=== PATIENT | female | born 1965 | race Caucasian/White ===

== ENCOUNTER 2017-01-20 13:05 | Inpatient (IN) | payer MEDICAID ==
--- NOTE | 2017-01-20 14:30 | C.PDOC ---
History Of Present Illness 51 year old patient, with a past medical history of arthritis, depression and HIV, presents to the ED for left lower quadrant pain and diarrhea for the past week. Patient also complains of a tactile fever, cough with yellow sputum, and pleuritic chest pain x 2 weeks. Patient had 200 CD4 and high viral load. Patient denies nausea or vomiting. Patient was seen at [facility] on 01/05/17 and discharged. Pt was seen by Dr. Axel perez and sent here for evaluation for abdominal pain. Time Seen by Provider: 01/20/17 13:40 Chief Complaint (Nursing): Abdominal Pain History Per: Patient History/Exam Limitations: no limitations Onset/Duration Of Symptoms: Other (2 weeks) Current Symptoms Are (Timing): Still Present Context: Other Severity: Mild Pain Scale Rating Of: 3 Location Of Pain/Discomfort: LLQ Radiation Of Pain To:: None Quality Of Discomfort: "Pain" Associated Symptoms: Fever, Other (cough) Exacerbating Factors: None Alleviating Factors: None Last Bowel Movement: Today Recent travel outside of the [place]: No Past Medical History Reviewed: Historical Data, Nursing Documentation, Vital Signs Vital Signs: Last Vital Signs Temp 101.3 F H 01/20/17 17:08 Pulse 94 H 01/20/17 17:08 Resp 20 01/20/17 17:08 BP 105/61 01/20/17 17:08 Pulse Ox 100 01/20/17 18:36 - Medical History PMH: Arthritis, Depression, HIV Surgical History: Cholecystectomy Family History: States: Unknown Family Hx, Hypertension - Social History Hx Alcohol Use: No Hx Substance Use: No - Immunization History Hx Tetanus Toxoid Vaccination: No Hx Influenza Vaccination: No Hx Pneumococcal Vaccination: Yes Review Of Systems Except As Marked, All Systems Reviewed And Found Negative. Constitutional: Positive for: Fever (tactile) Cardiovascular: Positive for: Chest Pain (pleuritic) Respiratory: Positive for: Cough Gastrointestinal: Positive for: Abdominal Pain (LLQ). Negative for: Nausea, Vomiting Physical Exam - Physical Exam Appears: Non-toxic, No Acute Distress, Other (uncomfortable) Skin: Warm, Dry Head: Atraumatic, Normacephalic Eye(s): bilateral: Normal Inspection, EOMI Oral Mucosa: Dry Neck: Normal ROM, Supple Chest: Symmetrical Cardiovascular: Rhythm Regular (tachycardic) Respiratory: No Rales, No Rhonchi, No Wheezing, Other (course breath sounds bilaterally) Gastrointestinal/Abdominal: Bowel Sounds (positive), Soft, Tenderness (LLQ), No Guarding, No Rebound Back: Normal Inspection, No CVA Tenderness Extremity: Normal ROM Neurological/Psych: Oriented x3, Normal Speech, Normal Cognition Gait: Steady ED Course And Treatment - Laboratory Results Result Diagrams: 01/20/17 14:38 01/20/17 14:38 O2 Sat by Pulse Oximetry: 100 (room air) Pulse Ox Interpretation: Normal Progress Note: Plan: Abdomen/Pelvis CT, Labs, Chest x-ray, IV fluids Medical Decision Making Medical Decision Making: chest xray shows pneumonia; ceftriaxone and zithromax ordered. discussed with Dr Mallorie Reyna; will admit to his service; await abdominal ct results. Disposition Discussed With : Ekta Reyna Doctor Will See Patient In The: Hospital - Disposition Disposition: HOSPITALIZED Disposition Time: 18:35 Condition: STABLE - Clinical Impression Clinical Impression: Pneumonia, Immunocompromised state - PA / SOCIOCULTURAL ANTHROPOLOGY PROFESSOR / Resident Statement MD/DO has reviewed & agrees with the documentation as recorded. - Scribe Statement The provider has reviewed the documentation as recorded by the Scribe Ani Isbell All medical record entries made by the Scribe were at my direction and personally dictated by me. I have reviewed the chart and agree that the record accurately reflects my personal performance of the history, physical exam, medical decision making, and the department course for this patient. I have also personally directed, reviewed, and agree with the discharge instructions and disposition. Decision To Admit - Pt Status Changed To: Hospital Disposition Of: Inpatient - Admit Certification Admit to Inpatient:: After my assessment, the patient will require hospitalization for at least two midnights. This is because of the severity of symptoms shown, intensity of services needed, and/or the medical risk in this patient being treated as an outpatient. - InPatient: Physician Admission Certification:: for tx pneumonia - . Bed Request Type: Regular Patient Diagnosis: Pneumonia, Immunocompromised state
[2017-01-20] MEDS ORDERED: Sodium Chloride 0.9% 1,000 ML IV ONE (14:33)
[2017-01-20 14:47] LABS: BASO % 0.2 % (0.0-2.0); EOS # 0.1 K/uL (0.0-0.7); EOS % 1.7 % (0.0-4.0); HEMATOCRIT 28.8 % (34.0-47.0); LYMPH # 1.6 K/uL (1.0-4.3); LYMPH % 22.9 % (20.0-40.0); MEAN CELL VOLUME 80.1 fL (81.0-99.0); MEAN CORPUSCULAR HGB CONC 32.5 g/dL (33.0-37.0); MEAN PLATELET VOLUME 9.1 fL (7.2-11.7); MONO # 0.4 K/uL (0.0-0.8); MONO % 5.1 % (0.0-10.0); RED CELL DISTRIBUTION WIDTH 15.1 % (11.5-14.5)
[2017-01-20] MEDS ORDERED: Sodium Chloride 0.9% 1,000 ML ONE (14:54)
[2017-01-20] MEDS ORDERED: Iohexol 240 (50 ml) ONE (14:54)
--- NOTE | 2017-01-20 14:55 | RAD ---
HISTORY: cough x 2 weeks COMPARISON: Chest x-ray performed 09/25/16 TECHNIQUE: Chest PA and lateral FINDINGS: LUNGS: Patchy right lower lobe opacities and to a lesser extent inferior right upper lobe, likely pneumonia. Nonspecific lingular opacity. Please note that chest x-ray has limited sensitivity for the detection of pulmonary masses. PLEURA: No significant pleural effusion identified. No definite pneumothorax . CARDIOVASCULAR: The cardiomediastinal silhouette appears within normal limits of size. OSSEOUS STRUCTURES: No acute osseous abnormality identified. VISUALIZED UPPER ABDOMEN: Unremarkable. OTHER FINDINGS: None. IMPRESSION: Patchy right lower lobe opacities and to a lesser extent inferior right upper lobe, likely pneumonia. Nonspecific lingular opacity. Recommend follow-up to assess for complete resolution.
[2017-01-20 14:56] LABS: CHLORIDE 99 mmol/L (98-107)
[2017-01-20 14:57] LABS: SODIUM 135 mmol/L (132-148)
[2017-01-20 14:59] LABS: ALB/GLOB RATIO 1.1 (1.0-2.1); ALKALINE PHOSPHATASE 325 U/L (38-126); ALT/SGPT 50 U/L (9-52); AST/SGOT 47 U/L (14-36); BILIRUBIN,TOTAL 0.7 mg/dL (0.2-1.3); CALCIUM 8.2 mg/dl (8.6-10.4); CARBON DIOXIDE 25 mmol/L (22-30); GFR AFRICAN-AMERICAN > 60; GLUCOSE,RANDOM 91 mg/dL (65-105); TOTAL PROTEIN 7.5 g/dL (6.3-8.3)
[2017-01-20 15:01] LABS: RBC URINE < 1 /hpf (0-3); URINE BACTERIA MANY (<OCC); URINE BILIRUBIN NEGATIVE (NEGATIVE); URINE BLOOD NEGATIVE (NEGATIVE); URINE COLOR Yellow (YELLOW); URINE GLUCOSE (UA) NORMAL (Normal); URINE KETONE NEGATIVE (NEGATIVE); URINE LEUKOCYTE ESTERASE TRACE Leu/uL (Negative); URINE PROTEIN NEGATIVE (NEGATIVE); URINE UROBILINOGEN NORMAL mg/dL (0.2-1.0); WBC URINE 1 /hpf (0-5)
[2017-01-20] MEDS ORDERED: Iohexol 240 (50 ml) PO STA (15:05)
[2017-01-20 15:22] LABS: BLOOD UREA NITROGEN 12 mg/dL (7-17)
[2017-01-20] MEDS ORDERED: Azithromycin 500 MG in Sodium Chloride 0.9% 250 ML IVPB STA (16:15)
[2017-01-20] MEDS ORDERED: cefTRIAXone IV 1 gm in Dextros 50 ML IVPB ONE (16:28)
[2017-01-20] MEDS ORDERED: Iodixanol 320 MG/ML 100 ML BOTTLE IV ONE (16:34)
[2017-01-20] MEDS ORDERED: Azithromycin 500mg/250ML NS 500 MG/250 ML BAG IVPB ONE (17:44)
--- NOTE | 2017-01-20 18:21 | CT ---
PROCEDURE: CT Abdomen and Pelvis with oral and IV contrast. HISTORY: llq pain and diarrhea COMPARISON: None available TECHNIQUE: Contiguous axial images of the abdomen and pelvis. Oral and IV contrast was administered. Coronal and Sagittal reformats generated and reviewed. Contrast dose: 100 cc Visipaque 320 Radiation dose: Total exam DLP = 242.14 mGy-cm. This CT exam was performed using one or more of the following dose reduction techniques: Automated exposure control, adjustment of the mA and/or kV according to patient size, and/or use of iterative reconstruction technique. FINDINGS: LOWER THORAX: Multiple nodular bilateral opacities at the lung bases, possibly multifocal pneumonia, however underlying pulmonary masses cannot be excluded. LIVER: Hepatomegaly. Intrahepatic biliary dilatation predominantly within the right hepatic lobe. Coarse calcifications within the inferior posterior right hepatic lobe. GALLBLADDER AND BILE DUCTS: Cholecystectomy. PANCREAS: Unremarkable. SPLEEN: Splenomegaly. ADRENALS: Unremarkable. KIDNEYS AND URETERS: The kidneys enhance symmetrically. No hydronephrosis or obstructing renal calculus. BLADDER: The urinary bladder appears unremarkable. REPRODUCTIVE: Uterus is present. Suspected fundal fibroid. APPENDIX: The appendix appears within normal limits of caliber. No secondary signs of acute appendicitis. BOWEL: The stomach is nondistended. The bowel loops appear within normal limits of caliber without evidence of intestinal obstruction. PERITONEUM: No significant free fluid. No definite free air. LYMPH NODES: Prominent sub cm right lower quadrant/mesenteric lymph nodes, nonspecific. VASCULATURE: No aortic aneurysm. BONES: Degenerative changes of the spine. OTHER FINDINGS: Small fat containing umbilical hernia. IMPRESSION: Multiple nodular bilateral opacities at the lung bases, possibly multifocal pneumonia, however underlying pulmonary masses cannot be excluded. Correlate clinically. Suggest CT of the chest for further evaluation. Hepatomegaly. Intrahepatic biliary dilatation predominantly within the right hepatic lobe. Coarse calcifications within the inferior posterior right hepatic lobe. Splenomegaly. Cholecystectomy. Probable fundal uterine fibroid. Recommend pelvic ultrasound for further evaluation. Additional findings as above.
--- NOTE | 2017-01-20 23:26 | CT ---
EXAM: CT Chest Without Intravenous Contrast CLINICAL HISTORY: 51 years old, female; Pain; Chest pain; Patient HX: 6-9-16; Additional info: Pneumonia TECHNIQUE: Axial computed tomography images of the chest without intravenous contrast. This CT exam was performed using one or more of the following dose reduction techniques: automated exposure control, adjustment of the mA and/or kV according to patient size, and/or use of iterative reconstruction technique. Coronal and sagittal reformatted images were created and reviewed. COMPARISON: CR - CHEST TWO VIEWS (PA/LAT) 11/07/2015 6:16:11 PM FINDINGS: Limitations: Lack of intravenous contrast. Lungs: Multiple scattered nodular air space opacities with surrounding groundglass/reticulonodular opacities. Pleural space: No pneumothorax. No significant effusion. Heart: No cardiomegaly. No significant pericardial effusion. Mediastinum: Mild mural thickening vs underdistention of distal esophagus. Probable small hiatal hernia. Bones/joints: No acute fracture. Soft tissues: Unremarkable. Vasculature: Unremarkable. No thoracic aortic aneurysm. Lymph nodes: No pathologically enlarged lymph nodes. Gallbladder and bile ducts: Cholecystectomy. Spleen: Splenomegaly. Kidneys and ureters: Residual contrast within kidneys. Striated appearance of kidneys, RIGHT greater than LEFT. IMPRESSION: 1. Nodular airspace opacities. Consider inflammatory, infectious, or neoplastic etiologies. Clinical correlation is needed. 2. Striated kidneys concerning for pyelonephritis. Correlate with urinalysis. 3. Mild mural thickening vs underdistention of distal esophagus. Clinical correlation is needed. 4. Incidental/non-acute findings are described above.
--- NOTE | 2017-01-21 04:08 | HP ---
HISTORY OF PRESENT ILLNESS: This is a 51-year-old female with history of HIV disease and she is not compliant to HIV medications. The patient presented to our office today with symptoms of cough and congestion and upper abdominal pain. The patient was sent to the Emergency Room for evaluation, where she was found to have multilobar pneumonia and subsequently admitted for further management. The patient was told by her infectious disease doctor that her viral load was high. The patient admits that she is not compliant with HIV medications and sometimes she forgets to take them. The patient admits that she has fever and chills and she has also yellowish sputum. The patient denied to have any constitutional symptoms of weight loss or loss of appetite or night sweats. REVIEW OF SYSTEMS: Other review of systems negative. ALLERGIES: No known allergies. HOME MEDICATIONS: Truvada 200 mg/300 mg once a day, TVK 50 mg daily, hydroxyzine 25 mg twice a day, Haldol 2 mg daily, benztropine 0.5 mg daily, Lexapro 20 mg daily. SOCIAL HISTORY: No history of smoking, ETOH or substance abuse. FAMILY HISTORY: Not contributory at this time. PAST MEDICAL HISTORY: As above. PHYSICAL EXAMINATION: GENERAL: The patient is in bed, comfortable, not in any cardiopulmonary distress at the time of this examination. VITAL SIGNS: Blood pressure 92/53, temperature 98.1, respiratory rate 18, and pulse 79. HEENT: Pupils equal, reactive to light. Normal-appearing mucosa of the conjunctivae, oropharyngeal and nasal membrane mucosa. NECK: Supple. No JVD, no carotid bruit, no lymph node, no thyromegaly. CHEST AND LUNGS: Bilateral symmetrical expansion. Good air exchange. CARDIOVASCULAR SYSTEM: PMI not localized. S1, S2. No additional sounds. ABDOMEN: Normoactive bowel sounds. No tenderness, no organomegaly, no masses. EXTREMITIES: No cyanosis, no clubbing, no edema. CENTRAL NERVOUS SYSTEM: Alert, awake, oriented x 3. No neurological deficits could be appreciated. ASSESSMENT: 1. Multilobar pneumonia. 2. HIV disease. The patient is not compliant to medications. PLAN: We well do pulmonary and ID consultations. Check HIV viral load and CD4 count. Resume patient's home medications and start patient on Rocephin and azithromycin. Blood culture and sputum culture. We will keep patient in respiratory isolation at this point. Same S Axel MOSS cc: [id number] TT: 01/21/2017 04:07:13 [facility] # [id number] dn MTDD
[2017-01-21] MEDS ORDERED: cefTRIAXone IV 1 gm in Dextros 50 ML IVPB SCH (10:00)
[2017-01-21] MEDS: Enoxaparin 40 mg Syringe SC SCH (10:13)
[2017-01-21] MEDS ORDERED: Tmp-Smz 400 mg-80 mg SS Tab PO SCH (12:15)
[2017-01-21] MEDS ORDERED: Ergocalciferol 50,000 Intl Units Cap PO SCH (12:45)
[2017-01-21] MEDS: Emtricitabine-Tenofovir 200 mg-300 mg Tab PO SCH (13:29)
--- NOTE | 2017-01-21 17:14 | CP.PCM.CON ---
History of Present Illness - History of Present Illness History of Present Illness: INFECTIOUS DISEASE CONSULT; PATIENT SEEN, CHART REVIEWED LABS AND RADIOLOGY REVIEWED CONSULTATION DICTATED; ORDERS GIVEN. DICTATION #[id number].-SEE REPORTS. Past Patient History - Infectious Disease Hx of Infectious Diseases: None - Past Medical History & Family History Past Medical History?: Yes - Past Social History Smoking Status: Never Smoked - CARDIAC Hx Cardiac Disorders: Yes Hx Angina: Yes Hx Atrial Fibrillation: No Hx Cardia Arrhythmia: No Hx Circulatory Problems: No Hx Congestive Heart Failure: No Hx Heart Attack: No Hx Heart Murmur: No Hx Heart Transplant: No Hx Hypercholesterolemia: No Hx Hypertension: No Hx Hypotension: No Hx Internal Defibrillator: No Hx Mitral Valve Prolapse: No Hx Pacemaker: No Hx Peripheral Edema: No Hx Peripheral Vascular Disease: No - PULMONARY Hx Respiratory Disorders: Yes Hx Asthma: No Hx Bronchitis: Yes Hx Chronic Obstructive Pulmonary Disease (COPD): No Hx Emphysema: No Hx Lung Cancer: No Hx Pneumonia: Yes Hx Pulmonary Edema: No Hx Pulmonary Embolism: No Hx Respiratory Aspiration: No Hx Respiratory Tract Infection: Yes Hx Sleep Apnea: No Hx Tuberculosis: No - NEUROLOGICAL Hx Neurological Disorder: No - HEENT Hx HEENT Problems: No - RENAL Hx Chronic Kidney Disease: No - ENDOCRINE/METABOLIC Hx Endocrine Disorders: No - HEMATOLOGICAL/ONCOLOGICAL Hx Blood Disorders: Yes Hx AIDS: No Hx Anemia: No Hx Blood Transfusions: No Hx Blood Transfusion Reaction: No Hx Bruising: No Hx Cancer: No Hx Chemotherapy: No Hx Cirrhosis: No Hx Gum Bleeding: No Hx Hemophilia: No Hx Hepatitis A: No Hx Hepatitis B: No Hx Hepatitis C: No Hx Human Immunodeficiency Virus (HIV): Yes Hx Leukemia: No Hx Metastesis: No Hx Shingles: No Hx Sickle Cell Disease: No Hx Unexplained Bleeding: No Hx von Willebrand's Disease: No - INTEGUMENTARY Hx Dermatological Problems: No - MUSCULOSKELETAL/RHEUMATOLOGICAL Hx Falls: No - GASTROINTESTINAL Hx Gastrointestinal Disorders: Yes Hx Bowel Surgery: No Hx Clostridium Difficile: No Hx Colostomy: No Hx Constipation: Yes Hx Crohn's Disease: No Hx Diarrhea: No Hx Diverticulitis: Yes Hx Esophageal Varices: No Hx Fatty Liver Disease: No Hx Gall Bladder Disease: Yes Hx Gastritis: No Hx Gastroesophageal Reflux: No Hx Hemorrhoids: No Hx Ileostomy: No Hx Irritable Bowel: No Hx Liver Failure: No Hx Nausea: No Hx Pancreatitis: No HX Swallowing Problems: No Hx Ulcer: No Hx Vomiting: Yes Other/Comment: Gastroenteritis - GENITOURINARY/GYNECOLOGICAL Hx Genitourinary Disorders: No - PSYCHIATRIC Hx Substance Use: No - SURGICAL HISTORY Hx Surgeries: Yes Hx Abdominal Aortic Aneurysm Repair: No Hx Amputation: No Hx Angiogram: No Hx Angioplasty: No Hx Appendectomy: No Hx Arteriovenous Shunt: No Hx Arthroscopy: No Hx Bile Duct Stent: No Hx Breast Biopsy: No Hx Cataract Extraction: No Hx Cardiac Catheterization: No Hx Carotid Endarterectomy: No Hx Section: No Hx Cholecystectomy: Yes Hx Coronary Artery Bypass Graft: No Hx Coronary Stent: No Hx Dilation and Curettage: No Hx Eye Surgery: No Hx Femoral-Popliteal Bypass Graft: No Hx Gastric Bypass Surgery: No Hx Herniorrhaphy: No Hx Hysterectomy: No Hx Joint Replacement: No Hx Kidney Transplant: No Hx Liver Transplant: No Hx Mastectomy: No Hx Musculoskeletal Surgery: No Hx Open Heart Surgery: No Hx Open Reduction Internal Fixation: No Hx Orthopedic Surgery: No Hx Parathyroidectomy: No Hx Penile Implant: No Hx Pulmonary Surgery: No Hx Splenectomy: No Hx Thyroidectomy: No Hx Tonsillectomy: No Hx Tubal Ligation: No Hx Valve Replacement: No Hx Vascular Surgery: No Hx Vascular Access Device: No - ANESTHESIA Hx Anesthesia: No Hx Anesthesia Reactions: No Hx Malignant Hyperthermia: No Has any member of the family had a problem w/ anesthesia?: No Meds Allergies/Adverse Reactions: Allergies Allergy/AdvReac Type Severity Reaction Status Date / Time orange Allergy Verified 01/20/17 13:21 risperidone [From Risperdal] Allergy RASH Verified 01/20/17 13:21 tomato Allergy RASH Verified 01/20/17 13:21 - Medications Medications: Current Medications Acetaminophen (Tylenol 325mg Tab) 650 mg PO Q6 PRN PRN Reason: Pain, moderate (4-7) Last Admin: 01/21/17 09:29 Dose: 650 mg Benztropine Mesylate (Cogentin) 0.5 mg PO DAILY [facility] Last Admin: 01/21/17 13:31 Dose: 0.5 mg Dolutegravir Sodium (Tivicay) 50 mg PO DAILY [facility] Last Admin: 01/21/17 13:29 Dose: 50 mg Emtricitabine/Tenofovir (Truvada 200 Mg-300 Mg) 1 tab PO DAILY [facility] Last Admin: 01/21/17 13:29 Dose: 1 tab Enoxaparin Sodium (Lovenox) 40 mg SC DAILY [facility] Last Admin: 01/21/17 10:13 Dose: 40 mg Ergocalciferol (Drisdol 50,000 Intl Units Cap) 1 cap PO QWK [facility] Last Admin: 01/21/17 13:30 Dose: 1 cap Escitalopram Oxalate (Lexapro) 20 mg PO DAILY [facility] Haloperidol (Haldol) 2 mg PO DAILY [facility] Hydroxyzine HCl (Atarax) 25 mg PO BID [facility] Ceftriaxone Sodium (Rocephin Iv 1 Gm Duplex) 50 mls @ 100 mls/hr IVPB DAILY [facility] Last Admin: 01/21/17 09:29 Dose: 100 mls/hr Azithromycin 500 mg/ Sodium (Chloride) 250 mls @ 167 mls/hr IVPB Q24H [facility] Trimethoprim/Sulfamethoxazole (Bactrim Ss Tab) 1 tab PO DAILY [facility] Last Admin: 01/21/17 13:29 Dose: 1 tab Results - Vital Signs Recent Vital Signs: Last Vital Signs Temp 100.5 F H 01/21/17 15:00 Pulse 90 01/21/17 15:00 Resp 20 01/21/17 15:00 BP 113/74 01/21/17 15:00 Pulse Ox 97 01/21/17 15:00 - Labs Result Diagrams: 01/20/17 14:38 01/20/17 14:38
[2017-01-21] MEDS: Azithromycin 500 MG in Sodium Chloride 0.9% 250 ML IVPB SCH (19:06)
--- NOTE | 2017-01-21 21:28 | PN ---
DATE: 01/21/2017 SUBJECTIVE: The patient is seen today, 01/21/2017. She still has some lower abdominal pain. The patient had a CAT scan of the chest that shows possible pyelonephritis, right more than left. Urine culture grew gram-negative rods. PHYSICAL EXAMINATION: VITAL SIGNS: Temperature of 100.5, blood pressure 113/74, respiratory rate 20, and pulse is 90. HEENT: Pupils equal, reactive to light. Normal-appearing mucosa of the conjunctivae, oropharyngeal and nasal membrane mucosa. NECK: Supple, no JVD, no carotid bruit, no lymph node, no thyromegaly. CHEST AND LUNGS: Bilateral good air exchange. No rales, no rhonchi. CARDIOVASCULAR: PMI not localized. S1, S2. No additional sounds. ABDOMEN: Normoactive bowel sounds, no organomegaly, no masses. The patient has some lower abdominal tenderness, but no rebound tenderness or rigidity. EXTREMITIES: No cyanosis, no clubbing, no edema. CENTRAL NERVOUS SYSTEM: Alert, awake, oriented x 3. No neurological deficits could be appreciated. ASSESSMENT: Pyelonephritis, bilateral pneumonia, human immunodeficiency virus positive. PLAN: We will check CD4 count. ID consult and follow recommendations. Continue IV antibiotics as per ID. Lucy Reyna MD cc: [id number] TT: 01/21/2017 21:27:40 Confirmation # [id number] Dictation # [id number] mercy LOZANO
--- NOTE | 2017-01-21 21:51 | CON ---
DATE: 01/21/2017 REQUESTING PHYSICIAN: Dr. Reyna. REASON FOR CONSULTATION: Multilobar pneumonia and HIV positive. HISTORY OF PRESENT ILLNESS: The patient is a 51-year-old female with past medical history of HIV for more than 15 years, arthritis, depression, who presented to the ER for left lower quadrant pain and diarrhea for the past week. The patient also complained of cough with yellowish expectoration and pl euritic chest pain for more than 2 weeks. She also states she felt feverish and in the ER was found to have a temperature of 101.3. The patient also states she went to [facility] on and was discharged. She follows up at [facility] with her infectious disease doctor. The patient was seen today by Dr. Reyna in his office and was sent for evaluation fo r abdominal pain. Chest x-ray on admission showed patchy right lower lobe opacities and also some __ ___ inferior right upper lobe, likely pneumonia with nonspecific lingular opacity. CT of the abdomen and pelvis was also ordered with p.o. and IV contrast, which showed multifocal pneumonia with multip le nodular opacities in the lung bases. Hepatomegaly and intrahepatic biliary dilatation, especially in the right hepatic lobe and coarse calcifications. There was also some splenomegaly seen. Please see full details of the CAT scan in the chart. The patient was started on IV ceftriaxone and p.o. B actrim 1 single strength once a day and IV Zithromax. The patient also admits to having loss of weig ht, but denies any night sweats. Her sputum is mainly yellowish, at times white. Denies any hemopty sis or hematemesis. The patient admits to some loss of weight of about 10-15 pounds, as per patient. She also reports she had been noncompliant with her medications and her CD4 last count was about 20 0 with high viral load. The patient is presently on HAART therapy, taking Tivicay 50 mg twice a day with Truvada 1 capsule once a day. The patient denies any previous history of TB, but admits to juanito ng 2 episodes of pneumonia in the past 15 years. PAST MEDICAL HISTORY: As above, history of pneumonia x 2, probably PCP. Also complains of arthritis , especially pain in the left hip. Depression. PAST SURGICAL HISTORY: Consists of cholecystectomy. SOCIAL HISTORY: She is single, has 3 children, 30 years, 26 years old and 22 years old and they are all grown up and healthy. She denies smoking or drinking or substance abuse. FAMILY HISTORY: As per her, hypertension. IMMUNIZATIONS: The patient admits to pneumococcal vaccination. Not sure when she got it. Denies inf luenza vaccination or tetanus toxoid vaccination. REVIEW OF SYSTEMS: RESPIRATORY: Complains of cough with pleuritic chest pain. Also complains of yellowish phlegm at ti mes. CARDIOVASCULAR SYSTEM: As reported, atypical chest pain, mainly pleuritic on deep inspiration. CONSTITUTIONAL: Complains of feeling febrile. GASTROINTESTINAL: Complains of abdominal pain, mainly left lower quadrant. Denies any nausea or vom iting. PHYSICAL EXAMINATION: GENERAL: The patient is a 51-year-old pleasant female. Weight of 120 pounds. VITAL SIGNS: T-max of 101.3, blood pressure 105/61, respirations 20, pulse of 94, pulse ox is 100%. HEENT: Pupils equal, reactive to light and accommodation. Extraocular movements full. Fundus not w ell visualized. Sclerae nonicteric. Conjunctivae normal. JVP not elevated. NECK: Appears to be supple. LUNGS: Coarse breath sounds bilaterally, few rhonchi, especially at the bases. CARDIOVASCULAR SYSTEM: S1, S2. Sinus tachycardia. ABDOMEN: Soft, some tenderness in left lower quadrant and mid abdomen. No guarding, no rebound, que stionable hepatomegaly. Spleen not palpable. EXTREMITIES: No cyanosis, clubbing or edema. CENTRAL NERVOUS SYSTEM: No gross deficits. Moves all extremities. GAIT: Not tested. LABORATORY DATA: WBC 7.0, H and H of 9.4 and 28.8, platelets 177. Creatinine is 0.8, BUN of 12. Li watson function tests: Bilirubin normal. AST 47, ALT 50, alkaline phosphatase 325. Chest x-ray as rep orted above. CT of the abdomen and pelvis with p.o. and IV contrast on 01/20/2017, multifocal lobar pn eumonia, hepatomegaly, splenomegaly, some dilatation of intrahepatic biliary dilatation, right hepati c lobe with coarse calcifications. See full report. Urine culture reported as gram-negative yue. U rinalysis was hazy with some nitrites. WBC 1, RBC less than 1. Urinary leukocytes trace, bacteria ma ny. MEDICATIONS: As per chart reviewed. The patient is on p.o. Bactrim 1 single strength once a day. T he patient on Lexapro 20 mg p.o. daily, Lovenox subQ 40 mg daily, ceftriaxone 1 g once a daily, Tivic ay 50 mg p.o. once a day, Truvada 200/300 mg 1 tablet p.o. once a day and Tylenol 650 mg p.o. q. 6 ho urly p.r.n. IMPRESSION: 1. Multilobe pneumonia, questionable PCP, rule out atypical pneumonia. 2. Abdominal pain with diarrhea and weight loss, rule out infectious etiology versus colitis. 3. Arthritis, especially painful left hip. Rule out avascular necrosis, left hip. 4. Urinary tract infection with gram-negative yue present. 5. Anxiety and depression. 6. Human immunodeficiency virus positive. PLAN: 1. Lopez cultures. We will get sed rate, CRP and LDH. 2. MRSA screen. 3. Check atypical titers. 4. QuantiFERON gold TB test. Discontinue p.o. Bactrim. Start IV Bactrim 160 mg, Trimethoprim sulfa q. 12 hourly. Discontinue IV Rocephin in view of elevated transaminases. We will start IV cefepime 1 g q. 12 hourly to cover for pseudomonas and Escherichia coli, especially with gram-negative yue in the urine. 5. Check HIV-1 RNA, PCR quantitative levels and genotyping as reported viral load high to look for r esistance. 6. Check lymphocyte subset studies. 7. Vitamin D 25-hydroxy level. CT chest in progress. We will follow. Case discussed with staff and nurse practitioner, Miss . We will follow along with you. Thank you very much for allowing me to participate in the care of your patient. Donna Chung MD cc: [id number] TT: 01/21/2017 21:50:03 Confirmation # [id number] Dictation # [id number] mercy
[2017-01-21] MEDS: Sulfamethoxazole/Trimethoprim 160 MG in Dextrose 5% In Water 250 ML IVPB SCH (22:51)
[2017-01-22 06:37] LABS: BASO % 0.3 % (0.0-2.0); EOS # 0.2 K/uL (0.0-0.7); EOS % 4.4 % (0.0-4.0); HEMATOCRIT 26.5 % (34.0-47.0); LYMPH # 1.3 K/uL (1.0-4.3); LYMPH % 23.2 % (20.0-40.0); MEAN CELL VOLUME 80.5 fL (81.0-99.0); MEAN CORPUSCULAR HEMOGLOBIN 26.2 pg (27.0-31.0); MEAN CORPUSCULAR HGB CONC 32.5 g/dL (33.0-37.0); MEAN PLATELET VOLUME 8.9 fL (7.2-11.7); MONO # 0.3 K/uL (0.0-0.8); NRBC % 0.1 % (0.0-2.0); WHITE BLOOD COUNT 5.6 K/uL (4.8-10.8)
[2017-01-22 06:55] LABS: CHLORIDE 102 mmol/L (98-107)
[2017-01-22 06:56] LABS: POTASSIUM 3.7 mmol/L (3.6-5.2); SODIUM 135 mmol/L (132-148)
[2017-01-22 06:58] LABS: ALB/GLOB RATIO 0.9 (1.0-2.1); AST/SGOT 23 U/L (14-36); BILIRUBIN,TOTAL < 0.1 mg/dL (0.2-1.3); BLOOD UREA NITROGEN 9 mg/dL (7-17); CARBON DIOXIDE 25 mmol/L (22-30); GFR AFRICAN-AMERICAN > 60; TOTAL PROTEIN 6.5 g/dL (6.3-8.3)
[2017-01-22 06:59] LABS: ALKALINE PHOSPHATASE 272 U/L (38-126); ALT/SGPT 39 U/L (9-52); CALCIUM 8.2 mg/dl (8.6-10.4); GLUCOSE,RANDOM 82 mg/dL (65-105)
[2017-01-22] MEDS: Sulfamethoxazole/Trimethoprim 160 MG in Dextrose 5% In Water 250 ML IVPB SCH ×2 (10:55→21:54)
[2017-01-22] MEDS: Emtricitabine-Tenofovir 200 mg-300 mg Tab PO SCH (11:10)
[2017-01-22] MEDS: Enoxaparin 40 mg Syringe SC SCH (11:11)
--- NOTE | 2017-01-22 12:51 | RAD ---
PROCEDURE: HISTORY: left hip pain COMPARISON: None TECHNIQUE: Incompletely visualized. Partially obscured by overlying bowel gas. No gross abnormalities FINDINGS: Bilateral hip joint space now. Left superolateral and left inferolateral acetabular and femoral spurring is present. Left acetabular protrusio is also suggested. Elsewhere mild generalized osteopenia is suspect. Contrast within the colon from prior CT is noted IMPRESSION: Asymmetrical osteoarthrosis left much more than right. Concomitant subchondral cysts and/or geodes are suggested. Left acetabular protrusio as well
--- NOTE | 2017-01-22 13:30 | CP.PCM.PN ---
Subjective - Date & Time of Evaluation Date of Evaluation: 01/22/17 Time of Evaluation: 13:30 - Subjective Subjective: C/O COUGH WITH PRODUCTIVE SPUTUM. C/O NAUSEA/AND VOMITING THIS A.M. DIARRHEA OFF AND ON. Objective - Vital Signs/Intake and Output Vital Signs (last 24 hours): Temp Pulse Resp BP Pulse Ox 98.2 F 86 20 92/54 L 95 01/22/17 00:00 01/22/17 00:00 01/22/17 00:00 01/22/17 00:00 01/22/17 00:00 Intake and Output: 01/22/17 01/22/17 06:59 18:59 Intake Total 800 Balance 800 - Medications Medications: Current Medications Acetaminophen (Tylenol 325mg Tab) 650 mg PO Q6 PRN PRN Reason: Pain, moderate (4-7) Last Admin: 01/22/17 06:13 Dose: 650 mg Benztropine Mesylate (Cogentin) 0.5 mg PO DAILY [facility] Last Admin: 01/22/17 11:10 Dose: 0.5 mg Dolutegravir Sodium (Tivicay) 50 mg PO BID [facility] Last Admin: 01/22/17 11:10 Dose: 50 mg Emtricitabine/Tenofovir (Truvada 200 Mg-300 Mg) 1 tab PO DAILY [facility] Last Admin: 01/22/17 11:10 Dose: 1 tab Enoxaparin Sodium (Lovenox) 40 mg SC DAILY [facility] Last Admin: 01/22/17 11:11 Dose: 40 mg Ergocalciferol (Drisdol 50,000 Intl Units Cap) 1 cap PO QWK [facility] Last Admin: 01/21/17 13:30 Dose: 1 cap Ergocalciferol (Drisdol 50,000 Intl Units Cap) 1 cap PO Q7D [facility] Escitalopram Oxalate (Lexapro) 20 mg PO DAILY [facility] Last Admin: 01/22/17 11:11 Dose: 20 mg Haloperidol (Haldol) 2 mg PO DAILY [facility] Last Admin: 01/22/17 11:10 Dose: 2 mg Hydroxyzine HCl (Atarax) 25 mg PO BID [facility] Last Admin: 01/22/17 11:08 Dose: 25 mg Azithromycin 500 mg/ Sodium (Chloride) 250 mls @ 167 mls/hr IVPB Q24H [facility] Last Admin: 01/21/17 19:06 Dose: 167 mls/hr Cefepime HCl 1 gm/ Dextrose 50 mls @ 100 mls/hr IVPB Q12H [facility] Last Admin: 01/22/17 10:55 Dose: 100 mls/hr Trimethoprim/Sulfamethoxazole (160 mg/ Dextrose) 250 mls @ 250 mls/hr IVPB Q12H [facility] Last Admin: 01/22/17 10:55 Dose: 250 mls/hr - Labs Labs: 01/22/17 05:58 01/22/17 05:58 - Constitutional Appears: No Acute Distress, Cachectic - Head Exam Head Exam: NORMAL INSPECTION - Eye Exam Eye Exam: EOMI, PERRL - ENT Exam ENT Exam: Normal Oropharynx - Neck Exam Neck Exam: Normal Inspection. absent: Meningismus - Respiratory Exam Respiratory Exam: Rhonchi (BILATERALLY.) - Cardiovascular Exam Cardiovascular Exam: REGULAR RHYTHM, +S1, +S2 - GI/Abdominal Exam GI & Abdominal Exam: Soft, Tenderness (MID EPIGASTRIC AND MID ABDOMEN.), Normal Bowel Sounds. 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 MULTILOBAR PNEUMONIA ?PCP R/O ATYPICAL PNEUMONIA. .ABDOMINAL PAIN WITH DIARRHEA/WEIGHT LOSS R/O INFECTIOUS VS HIV ENTEROPATHY R/O MAC .UTI +VE ESCHERICHIA COLI .DEPRESSION/ANXIETY . ACQUIRED IMMUNE DEFICIENCY SYNDROME .VITAMIN d DEFICIENCY . ARTHRITIS /OSTEOPENIA. PLAN. cONTINUE iv bACTRIM 160TMP/SMX iv PIGGYBACK EVERY 12 HOURLY. cONTINUE iv CEFEPIME 1 G EVERY 12 HOURLY. vITAMIN d 50,000 UNITS 1 CAPSULE WEEKLY FOR 3 MONTHS dIARRHEA WORKUP IN PROGRESS. fOLLOW-UP SPUTUM gRAM STAIN AND CULTURE. cONTINUE TIVICAY 50 MG BY MOUTH TWICE A DAY CONTINUE tRUVADA 1 bY mOUTH oNCE A dAY dAILY. F/U LYMPHOCYTE SUBSET STUDIES. F/U VIRAL LOAD. wILL FOLLOW WITH YOU AND MAKE ADJUSTMENTS NEEDED.
[2017-01-22] MEDS ORDERED: Ergocalciferol 50,000 Intl Units Cap PO SCH ×2 (14:15→15:00)
[2017-01-22] MEDS: Azithromycin 500 MG in Sodium Chloride 0.9% 250 ML IVPB SCH (17:23)
--- NOTE | 2017-01-22 19:27 | CP.PCM.CON ---
History of Present Illness - History of Present Illness History of Present Illness: Asked by Dr. Reyna for a GI consultation on this patient. 51 year old female with history of HIV (on HAART, though non-compliant, unknown last CD4), arthritis, depression who presented to hospital for evaluation of abdominal pain , fever, and productive cough for the past one week. Prior to this she was in usual state of health. She describes having cough with yellow sputum, generalized abdominal pain and fever up to 103 with chills at home which prompted her to come to hospital. She is currently undergoing treatment for pneumonia and pyelonephritis. GI called for evaluation of sudden onset vomiting and diarrhea which began this morning. She endorses approximately 6 episodes of non-bloody emesis and 3 episodes of non-bloody watery diarrhea today. She denies similar prior episodes or recent antibiotic use prior to hospitalization. She also endorses a weight loss of approximately 15 pounds over the past 3 months with a decreased appetite. She had an EGD/colonoscopy 2 years ago at [facility] [place] [facility] which were normal as per patient. Social history: non-smoker, no ETOH use Family history: reviewed, no history of colon or GI cancer Review of Systems - Review of Systems Review of Systems: - All other comprehensive 12 point review of systems performed, negative - Constitutional Constitutional: Chills, Fever, Weight Loss - Cardiovascular Cardiovascular: absent: Acrocyanosis, Chest Pain, Chest Pain at Rest, Chest Pain with Activity, Claudication, Diaphoresis, Dyspnea, Dyspnea on Exertion, Edema, Irregular Heart Rhythm, Pain Radiating to Arm/Neck/Jaw, Leg Edema, Leg Ulcers, Lightheadedness, Orthopnea, Palpitations, Paroxysmal Nocturnal Dyspnea, Pedal Edema, Radiating Pain, Rapid Heart Rate, Slow Heart Rate, Syncope, Other - Respiratory Respiratory: Cough - Gastrointestinal Gastrointestinal: Diarrhea, Vomiting - Musculoskeletal Musculoskeletal: absent: Abnormal Gait, Arthralgias, Atrophy, Back Pain, Deformity, Joint Swelling, Limited Range of Motion, Loss of Height, Muscle Cramps, Muscle Weakness, Myalgias, Neck Pain, Numbness, Radiating Pain into Limb , Stiffness, Tingling, Other - Neurological Neurological: absent: Abnormal Gait, Abnormal Hearing, Abnormal Movements, Abnormal Speech, Behavioral Changes, Burning Sensations, Confusion, Convulsions , Disequilibrium, Dizziness, Numbness, Focal Weakness, Frequent Falls, Headaches , Lack of Coordination, Loss of Vision, Memory Loss, Paresthesias, Radicular Pain, Restless Legs, Sensory Deficit, Syncope, Tingling, Tremor, Vertigo, Weakness, Other Visual Disturbances, Other Past Patient History - Infectious Disease Hx of Infectious Diseases: None - Past Medical History & Family History Past Medical History?: Yes - Past Social History Smoking Status: Never Smoked - CARDIAC Hx Cardiac Disorders: Yes Hx Angina: Yes Hx Atrial Fibrillation: No Hx Cardia Arrhythmia: No Hx Circulatory Problems: No Hx Congestive Heart Failure: No Hx Heart Attack: No Hx Heart Murmur: No Hx Heart Transplant: No Hx Hypercholesterolemia: No Hx Hypertension: No Hx Hypotension: No Hx Internal Defibrillator: No Hx Mitral Valve Prolapse: No Hx Pacemaker: No Hx Peripheral Edema: No Hx Peripheral Vascular Disease: No - PULMONARY Hx Respiratory Disorders: Yes Hx Asthma: No Hx Bronchitis: Yes Hx Chronic Obstructive Pulmonary Disease (COPD): No Hx Emphysema: No Hx Lung Cancer: No Hx Pneumonia: Yes Hx Pulmonary Edema: No Hx Pulmonary Embolism: No Hx Respiratory Aspiration: No Hx Respiratory Tract Infection: Yes Hx Sleep Apnea: No Hx Tuberculosis: No - NEUROLOGICAL Hx Neurological Disorder: No - HEENT Hx HEENT Problems: No - RENAL Hx Chronic Kidney Disease: No - ENDOCRINE/METABOLIC Hx Endocrine Disorders: No - HEMATOLOGICAL/ONCOLOGICAL Hx Blood Disorders: Yes Hx AIDS: No Hx Anemia: No Hx Blood Transfusions: No Hx Blood Transfusion Reaction: No Hx Bruising: No Hx Cancer: No Hx Chemotherapy: No Hx Cirrhosis: No Hx Gum Bleeding: No Hx Hemophilia: No Hx Hepatitis A: No Hx Hepatitis B: No Hx Hepatitis C: No Hx Human Immunodeficiency Virus (HIV): Yes Hx Leukemia: No Hx Metastesis: No Hx Shingles: No Hx Sickle Cell Disease: No Hx Unexplained Bleeding: No Hx von Willebrand's Disease: No - INTEGUMENTARY Hx Dermatological Problems: No - MUSCULOSKELETAL/RHEUMATOLOGICAL Hx Falls: No - GASTROINTESTINAL Hx Gastrointestinal Disorders: Yes Hx Bowel Surgery: No Hx Clostridium Difficile: No Hx Colostomy: No Hx Constipation: Yes Hx Crohn's Disease: No Hx Diarrhea: No Hx Diverticulitis: Yes Hx Esophageal Varices: No Hx Fatty Liver Disease: No Hx Gall Bladder Disease: Yes Hx Gastritis: No Hx Gastroesophageal Reflux: No Hx Hemorrhoids: No Hx Ileostomy: No Hx Irritable Bowel: No Hx Liver Failure: No Hx Nausea: No Hx Pancreatitis: No HX Swallowing Problems: No Hx Ulcer: No Hx Vomiting: Yes Other/Comment: Gastroenteritis - GENITOURINARY/GYNECOLOGICAL Hx Genitourinary Disorders: No - PSYCHIATRIC Hx Substance Use: No - SURGICAL HISTORY Hx Surgeries: Yes Hx Abdominal Aortic Aneurysm Repair: No Hx Amputation: No Hx Angiogram: No Hx Angioplasty: No Hx Appendectomy: No Hx Arteriovenous Shunt: No Hx Arthroscopy: No Hx Bile Duct Stent: No Hx Breast Biopsy: No Hx Cataract Extraction: No Hx Cardiac Catheterization: No Hx Carotid Endarterectomy: No Hx Section: No Hx Cholecystectomy: Yes Hx Coronary Artery Bypass Graft: No Hx Coronary Stent: No Hx Dilation and Curettage: No Hx Eye Surgery: No Hx Femoral-Popliteal Bypass Graft: No Hx Gastric Bypass Surgery: No Hx Herniorrhaphy: No Hx Hysterectomy: No Hx Joint Replacement: No Hx Kidney Transplant: No Hx Liver Transplant: No Hx Mastectomy: No Hx Musculoskeletal Surgery: No Hx Open Heart Surgery: No Hx Open Reduction Internal Fixation: No Hx Orthopedic Surgery: No Hx Parathyroidectomy: No Hx Penile Implant: No Hx Pulmonary Surgery: No Hx Splenectomy: No Hx Thyroidectomy: No Hx Tonsillectomy: No Hx Tubal Ligation: No Hx Valve Replacement: No Hx Vascular Surgery: No Hx Vascular Access Device: No - ANESTHESIA Hx Anesthesia: No Hx Anesthesia Reactions: No Hx Malignant Hyperthermia: No Has any member of the family had a problem w/ anesthesia?: No Meds Allergies/Adverse Reactions: Allergies Allergy/AdvReac Type Severity Reaction Status Date / Time orange Allergy Verified 01/20/17 13:21 risperidone [From Risperdal] Allergy RASH Verified 01/20/17 13:21 tomato Allergy RASH Verified 01/20/17 13:21 - Medications Medications: Current Medications Acetaminophen (Tylenol 325mg Tab) 650 mg PO Q6 PRN PRN Reason: Pain, moderate (4-7) Last Admin: 01/22/17 06:13 Dose: 650 mg Benztropine Mesylate (Cogentin) 0.5 mg PO DAILY [facility] Last Admin: 01/22/17 11:10 Dose: 0.5 mg Dolutegravir Sodium (Tivicay) 50 mg PO BID [facility] Last Admin: 01/22/17 17:22 Dose: 50 mg Emtricitabine/Tenofovir (Truvada 200 Mg-300 Mg) 1 tab PO DAILY [facility] Last Admin: 01/22/17 11:10 Dose: 1 tab Enoxaparin Sodium (Lovenox) 40 mg SC DAILY [facility] Last Admin: 01/22/17 11:11 Dose: 40 mg Ergocalciferol (Drisdol 50,000 Intl Units Cap) 1 cap PO QWK [facility] Last Admin: 01/21/17 13:30 Dose: 1 cap Escitalopram Oxalate (Lexapro) 20 mg PO DAILY [facility] Last Admin: 01/22/17 11:11 Dose: 20 mg Haloperidol (Haldol) 2 mg PO DAILY [facility] Last Admin: 01/22/17 11:10 Dose: 2 mg Hydroxyzine HCl (Atarax) 25 mg PO BID [facility] Last Admin: 01/22/17 17:22 Dose: 25 mg Azithromycin 500 mg/ Sodium (Chloride) 250 mls @ 167 mls/hr IVPB Q24H [facility] Last Admin: 01/22/17 17:23 Dose: 167 mls/hr Cefepime HCl 1 gm/ Dextrose 50 mls @ 100 mls/hr IVPB Q12H [facility] Last Admin: 01/22/17 10:55 Dose: 100 mls/hr Trimethoprim/Sulfamethoxazole (160 mg/ Dextrose) 250 mls @ 250 mls/hr IVPB Q12H [facility] Last Admin: 01/22/17 10:55 Dose: 250 mls/hr Ondansetron HCl (Zofran Inj) 4 mg IVP Q6 PRN PRN Reason: Nausea/Vomiting Pantoprazole Sodium (Protonix Inj) 40 mg IVP DAILY [facility] Last Admin: 01/22/17 17:22 Dose: 40 mg Physical Exam - Constitutional Appears: Non-toxic, No Acute Distress - Head Exam Head Exam: NORMAL INSPECTION - Eye Exam Eye Exam: EOMI, Normal appearance, PERRL - ENT Exam ENT Exam: Mucous Membranes Moist - Respiratory Exam Respiratory Exam: Decreased Breath Sounds Additional comments: bilateral bases - Cardiovascular Exam Cardiovascular Exam: REGULAR RHYTHM, +S1, +S2 - GI/Abdominal Exam GI & Abdominal Exam: Normal Bowel Sounds, Soft Additional comments: non tender to palpation in four quadrants +splenomegaly, no palpable hepatomegaly - Extremities Exam Extremities exam: Positive for: normal inspection - Neurological Exam Neurological exam: Alert, CN II-XII Intact, Oriented x3, Reflexes Normal - Psychiatric Exam Psychiatric exam: Normal Affect, Normal Mood - Skin Skin Exam: Dry, Intact, Normal Color, Warm Results - Vital Signs Recent Vital Signs: Last Vital Signs Temp 98.7 F 01/22/17 15:17 Pulse 73 01/22/17 15:17 Resp 18 01/22/17 15:17 BP 93/57 L 01/22/17 15:17 Pulse Ox 98 01/22/17 15:17 - Labs Result Diagrams: 01/22/17 05:58 01/22/17 05:58 Labs: Laboratory Results - last 24 hr 01/21/17 01/22/17 01/22/17 Unknown 05:58 05:58 WBC 5.6 RBC 3.29 L Hgb 8.6 L Hct 26.5 L MCV 80.5 L MCH 26.2 L MCHC 32.5 L RDW 15.0 H Plt Count 181 MPV 8.9 Neut % (Auto) 67.1 Lymph % (Auto) 23.2 [place] % (Auto) 5.0 Eos % (Auto) 4.4 H Baso % (Auto) 0.3 Neut # 3.7 Lymph # 1.3 [place] # 0.3 Eos # 0.2 Baso # 0.0 ESR 115 H Sodium Potassium Chloride Carbon Dioxide Anion Gap BUN Creatinine Est GFR ( Amer) Est GFR (Non-Af Amer) Random Glucose Calcium Total Bilirubin Direct Bilirubin AST ALT Alkaline Phosphatase Lactate Dehydrogenase C-React Prot High Sens Total Protein Albumin Globulin Albumin/Globulin Ratio 25-OH Vitamin D Total Hepatitis A IgM Ab Hep Bs Antigen Hep B Core IgM Ab Hepatitis C Antibody Ur L.pneumophila Ag Negative Mycoplasma pneumon IgM Negative 01/22/17 01/22/17 01/22/17 05:58 05:58 05:58 WBC RBC Hgb Hct MCV MCH MCHC RDW Plt Count MPV Neut % (Auto) Lymph % (Auto) [place] % (Auto) Eos % (Auto) Baso % (Auto) Neut # Lymph # [place] # Eos # Baso # ESR Sodium 135 Potassium 3.7 Chloride 102 Carbon Dioxide 25 Anion Gap 12 BUN 9 Creatinine 0.6 L Est GFR ( Amer) > 60 Est GFR (Non-Af Amer) > 60 Random Glucose 82 Calcium 8.2 L Total Bilirubin < 0.1 L Direct Bilirubin 0.0 AST 23 ALT 39 Alkaline Phosphatase 272 H Lactate Dehydrogenase 292 L C-React Prot High Sens > 15.00 H Total Protein 6.5 Albumin 3.0 L D Globulin 3.5 Albumin/Globulin Ratio 0.9 L 25-OH Vitamin D Total 27.2 L Hepatitis A IgM Ab Hep Bs Antigen Hep B Core IgM Ab Hepatitis C Antibody Ur L.pneumophila Ag Mycoplasma pneumon IgM 01/22/17 01/22/17 05:58 05:58 WBC RBC Hgb Hct MCV MCH MCHC RDW Plt Count MPV Neut % (Auto) Lymph % (Auto) [place] % (Auto) Eos % (Auto) Baso % (Auto) Neut # Lymph # [place] # Eos # Baso # ESR Sodium Potassium Chloride Carbon Dioxide Anion Gap BUN Creatinine Est GFR ( Amer) Est GFR (Non-Af Amer) Random Glucose Calcium Total Bilirubin Direct Bilirubin AST ALT Alkaline Phosphatase Lactate Dehydrogenase C-React Prot High Sens Total Protein Albumin Globulin Albumin/Globulin Ratio 25-OH Vitamin D Total Hepatitis A IgM Ab Negative Hep Bs Antigen Negative Hep B Core IgM Ab Negative Hepatitis C Antibody Negative Negative Ur L.pneumophila Ag Mycoplasma pneumon IgM Assessment & Plan - Assessment and Plan (Free Text) Assessment: HIV - non compliant with HAART regimen Depression Arthritis Cough / fever - Pneumonia, Pyelonephritis Vomiting, diarrhea - sudden acute onset, unclear etiology, possibly related to ongoing antibiotic therapy. Though given immunocompromised state, there is potential for involvement of opportunistic infections. Intrahepatic biliary dilation, mainly in right lobe - ?HIV cholangiopathy Plan: - Patient remains in respiratory isolation given HIV with pulmonary manifestations in order to rule out TB - Continue with antibiotic regimen, follow up ID recommendations - Full liquid diet as tolerated - Obtain stool studies (culture, c-difficile, giardia, isospora) - Anti-emetic therapy PRN - LFTs stable, continue to monitor. Viral hepatitis panel negative. - If symptoms persist, may consider endoscopic evaluation. Will continue to monitor clinical course.
--- NOTE | 2017-01-22 19:32 | CP.PCM.CON ---
History of Present Illness - History of Present Illness History of Present Illness: Chief complaint: Shortness of breath and cough History present illness: 51-year-old female with history of HIV disease, noncompliance with medications, admitted to the emergency room with the cough, congestion, upper abdominal pain almost 1 week duration. Patient was not taking her medications. And came to the patient's doctor's office, and was sent to the emergency room. In the emergency room patient was admitted as the pneumonia. Patient started on antibiotic in the emergency room, admitted to the medical floor. This morning patient was having increasing episodes of cough, with the mucus production. Last night the patient was having chills, and the shaking. Fever still persistently noted. But she is also complaining of headache profoundly, associated with the nausea. She had one episode of vomiting. Abdominal pain noted, associate with the some discomfort. She does not have any joint swelling, or skin rash. Past medical history: HIV disease, non-commands with the medication Allergies no known drug allergy Personal history: Patient has a history of smoking in the past, currently no alcohol or smoking Family history noncontributory Home medications reviewed Review of system: Currently have a headache, and a dizziness, especially changing position, associate with the cough. Cough associated with the mucus production thick yellow. No blood noted. Poor appetite noted. Chills noted. Fever and chills present. 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 Patient in the past hospitalized with the acute influenza also Assessment/recommendation: 51-year-old female with history of HIV disease, noncompliance with medication. Admitted to the hospital with acute pneumonia, and multilobar infiltrate. Associate with a febrile illness. And headache also noted. Underlying pneumonia treatment started. We'll continue the treatment. Headache noted. 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 We'll get a CAT scan. Infectious disease evaluation. Broncho-dilators. Cough medication and will follow the patient Past Patient History - Infectious Disease Hx of Infectious Diseases: None - Past Medical History & Family History Past Medical History?: Yes - Past Social History Smoking Status: Never Smoked - CARDIAC Hx Cardiac Disorders: Yes Hx Angina: Yes Hx Atrial Fibrillation: No Hx Cardia Arrhythmia: No Hx Circulatory Problems: No Hx Congestive Heart Failure: No Hx Heart Attack: No Hx Heart Murmur: No Hx Heart Transplant: No Hx Hypercholesterolemia: No Hx Hypertension: No Hx Hypotension: No Hx Internal Defibrillator: No Hx Mitral Valve Prolapse: No Hx Pacemaker: No Hx Peripheral Edema: No Hx Peripheral Vascular Disease: No - PULMONARY Hx Respiratory Disorders: Yes Hx Asthma: No Hx Bronchitis: Yes Hx Chronic Obstructive Pulmonary Disease (COPD): No Hx Emphysema: No Hx Lung Cancer: No Hx Pneumonia: Yes Hx Pulmonary Edema: No Hx Pulmonary Embolism: No Hx Respiratory Aspiration: No Hx Respiratory Tract Infection: Yes Hx Sleep Apnea: No Hx Tuberculosis: No - NEUROLOGICAL Hx Neurological Disorder: No - HEENT Hx HEENT Problems: No - RENAL Hx Chronic Kidney Disease: No - ENDOCRINE/METABOLIC Hx Endocrine Disorders: No - HEMATOLOGICAL/ONCOLOGICAL Hx Blood Disorders: Yes Hx AIDS: No Hx Anemia: No Hx Blood Transfusions: No Hx Blood Transfusion Reaction: No Hx Bruising: No Hx Cancer: No Hx Chemotherapy: No Hx Cirrhosis: No Hx Gum Bleeding: No Hx Hemophilia: No Hx Hepatitis A: No Hx Hepatitis B: No Hx Hepatitis C: No Hx Human Immunodeficiency Virus (HIV): Yes Hx Leukemia: No Hx Metastesis: No Hx Shingles: No Hx Sickle Cell Disease: No Hx Unexplained Bleeding: No Hx von Willebrand's Disease: No - INTEGUMENTARY Hx Dermatological Problems: No - MUSCULOSKELETAL/RHEUMATOLOGICAL Hx Falls: No - GASTROINTESTINAL Hx Gastrointestinal Disorders: Yes Hx Bowel Surgery: No Hx Clostridium Difficile: No Hx Colostomy: No Hx Constipation: Yes Hx Crohn's Disease: No Hx Diarrhea: No Hx Diverticulitis: Yes Hx Esophageal Varices: No Hx Fatty Liver Disease: No Hx Gall Bladder Disease: Yes Hx Gastritis: No Hx Gastroesophageal Reflux: No Hx Hemorrhoids: No Hx Ileostomy: No Hx Irritable Bowel: No Hx Liver Failure: No Hx Nausea: No Hx Pancreatitis: No HX Swallowing Problems: No Hx Ulcer: No Hx Vomiting: Yes Other/Comment: Gastroenteritis - GENITOURINARY/GYNECOLOGICAL Hx Genitourinary Disorders: No - PSYCHIATRIC Hx Substance Use: No - SURGICAL HISTORY Hx Surgeries: Yes Hx Abdominal Aortic Aneurysm Repair: No Hx Amputation: No Hx Angiogram: No Hx Angioplasty: No Hx Appendectomy: No Hx Arteriovenous Shunt: No Hx Arthroscopy: No Hx Bile Duct Stent: No Hx Breast Biopsy: No Hx Cataract Extraction: No Hx Cardiac Catheterization: No Hx Carotid Endarterectomy: No Hx Section: No Hx Cholecystectomy: Yes Hx Coronary Artery Bypass Graft: No Hx Coronary Stent: No Hx Dilation and Curettage: No Hx Eye Surgery: No Hx Femoral-Popliteal Bypass Graft: No Hx Gastric Bypass Surgery: No Hx Herniorrhaphy: No Hx Hysterectomy: No Hx Joint Replacement: No Hx Kidney Transplant: No Hx Liver Transplant: No Hx Mastectomy: No Hx Musculoskeletal Surgery: No Hx Open Heart Surgery: No Hx Open Reduction Internal Fixation: No Hx Orthopedic Surgery: No Hx Parathyroidectomy: No Hx Penile Implant: No Hx Pulmonary Surgery: No Hx Splenectomy: No Hx Thyroidectomy: No Hx Tonsillectomy: No Hx Tubal Ligation: No Hx Valve Replacement: No Hx Vascular Surgery: No Hx Vascular Access Device: No - ANESTHESIA Hx Anesthesia: No Hx Anesthesia Reactions: No Hx Malignant Hyperthermia: No Has any member of the family had a problem w/ anesthesia?: No Meds Allergies/Adverse Reactions: Allergies Allergy/AdvReac Type Severity Reaction Status Date / Time orange Allergy Verified 01/20/17 13:21 risperidone [From Risperdal] Allergy RASH Verified 01/20/17 13:21 tomato Allergy RASH Verified 01/20/17 13:21 - Medications Medications: Current Medications Acetaminophen (Tylenol 325mg Tab) 650 mg PO Q6 PRN PRN Reason: Pain, moderate (4-7) Last Admin: 01/22/17 06:13 Dose: 650 mg Benztropine Mesylate (Cogentin) 0.5 mg PO DAILY [facility] Last Admin: 01/22/17 11:10 Dose: 0.5 mg Dolutegravir Sodium (Tivicay) 50 mg PO BID [facility] Last Admin: 01/22/17 17:22 Dose: 50 mg Emtricitabine/Tenofovir (Truvada 200 Mg-300 Mg) 1 tab PO DAILY [facility] Last Admin: 01/22/17 11:10 Dose: 1 tab Enoxaparin Sodium (Lovenox) 40 mg SC DAILY [facility] Last Admin: 01/22/17 11:11 Dose: 40 mg Ergocalciferol (Drisdol 50,000 Intl Units Cap) 1 cap PO QWK [facility] Last Admin: 01/21/17 13:30 Dose: 1 cap Escitalopram Oxalate (Lexapro) 20 mg PO DAILY [facility] Last Admin: 01/22/17 11:11 Dose: 20 mg Haloperidol (Haldol) 2 mg PO DAILY [facility] Last Admin: 01/22/17 11:10 Dose: 2 mg Hydroxyzine HCl (Atarax) 25 mg PO BID [facility] Last Admin: 01/22/17 17:22 Dose: 25 mg Azithromycin 500 mg/ Sodium (Chloride) 250 mls @ 167 mls/hr IVPB Q24H [facility] Last Admin: 01/22/17 17:23 Dose: 167 mls/hr Cefepime HCl 1 gm/ Dextrose 50 mls @ 100 mls/hr IVPB Q12H [facility] Last Admin: 01/22/17 10:55 Dose: 100 mls/hr Trimethoprim/Sulfamethoxazole (160 mg/ Dextrose) 250 mls @ 250 mls/hr IVPB Q12H [facility] Last Admin: 01/22/17 10:55 Dose: 250 mls/hr Ondansetron HCl (Zofran Inj) 4 mg IVP Q6 PRN PRN Reason: Nausea/Vomiting Pantoprazole Sodium (Protonix Inj) 40 mg IVP DAILY [facility] Last Admin: 01/22/17 17:22 Dose: 40 mg Results - Vital Signs Recent Vital Signs: Last Vital Signs Temp 98.7 F 01/22/17 15:17 Pulse 73 01/22/17 15:17 Resp 18 01/22/17 15:17 BP 93/57 L 01/22/17 15:17 Pulse Ox 98 01/22/17 15:17 - Labs Result Diagrams: 01/22/17 05:58 01/22/17 05:58 Labs: Laboratory Results - last 24 hr 01/21/17 01/22/17 01/22/17 Unknown 05:58 05:58 WBC 5.6 RBC 3.29 L Hgb 8.6 L Hct 26.5 L MCV 80.5 L MCH 26.2 L MCHC 32.5 L RDW 15.0 H Plt Count 181 MPV 8.9 Neut % (Auto) 67.1 Lymph % (Auto) 23.2 [place] % (Auto) 5.0 Eos % (Auto) 4.4 H Baso % (Auto) 0.3 Neut # 3.7 Lymph # 1.3 [place] # 0.3 Eos # 0.2 Baso # 0.0 ESR 115 H Sodium Potassium Chloride Carbon Dioxide Anion Gap BUN Creatinine Est GFR ( Amer) Est GFR (Non-Af Amer) Random Glucose Calcium Total Bilirubin Direct Bilirubin AST ALT Alkaline Phosphatase Lactate Dehydrogenase C-React Prot High Sens Total Protein Albumin Globulin Albumin/Globulin Ratio 25-OH Vitamin D Total Hepatitis A IgM Ab Hep Bs Antigen Hep B Core IgM Ab Hepatitis C Antibody Ur L.pneumophila Ag Negative Mycoplasma pneumon IgM Negative 01/22/17 01/22/17 01/22/17 05:58 05:58 05:58 WBC RBC Hgb Hct MCV MCH MCHC RDW Plt Count MPV Neut % (Auto) Lymph % (Auto) [place] % (Auto) Eos % (Auto) Baso % (Auto) Neut # Lymph # [place] # Eos # Baso # ESR Sodium 135 Potassium 3.7 Chloride 102 Carbon Dioxide 25 Anion Gap 12 BUN 9 Creatinine 0.6 L Est GFR ( Amer) > 60 Est GFR (Non-Af Amer) > 60 Random Glucose 82 Calcium 8.2 L Total Bilirubin < 0.1 L Direct Bilirubin 0.0 AST 23 ALT 39 Alkaline Phosphatase 272 H Lactate Dehydrogenase 292 L C-React Prot High Sens > 15.00 H Total Protein 6.5 Albumin 3.0 L D Globulin 3.5 Albumin/Globulin Ratio 0.9 L 25-OH Vitamin D Total 27.2 L Hepatitis A IgM Ab Hep Bs Antigen Hep B Core IgM Ab Hepatitis C Antibody Ur L.pneumophila Ag Mycoplasma pneumon IgM 01/22/17 01/22/17 05:58 05:58 WBC RBC Hgb Hct MCV MCH MCHC RDW Plt Count MPV Neut % (Auto) Lymph % (Auto) [place] % (Auto) Eos % (Auto) Baso % (Auto) Neut # Lymph # [place] # Eos # Baso # ESR Sodium Potassium Chloride Carbon Dioxide Anion Gap BUN Creatinine Est GFR ( Amer) Est GFR (Non-Af Amer) Random Glucose Calcium Total Bilirubin Direct Bilirubin AST ALT Alkaline Phosphatase Lactate Dehydrogenase C-React Prot High Sens Total Protein Albumin Globulin Albumin/Globulin Ratio 25-OH Vitamin D Total Hepatitis A IgM Ab Negative Hep Bs Antigen Negative Hep B Core IgM Ab Negative Hepatitis C Antibody Negative Negative Ur L.pneumophila Ag Mycoplasma pneumon IgM
--- NOTE | 2017-01-23 08:49 | PN ---
DATE: 01/22/2017 SUBJECTIVE: The patient is seen today in 01/22/2017. She has nausea and vomited twic. PHYSICAL EXAMINATION VITAL SIGNS: BP 93/57, temperature 98.7, respiratory rate 18 and pulse is 73. HEENT: Pupils equal, reactive to light. Normal-appearing mucosa of the conjunctivae, oropharyngeal and nasal membrane mucosa. NECK: Supple, no JVD, no carotid bruit, no lymph node, no thyromegaly. CHEST AND LUNGS: Bilateral symmetrical expansion, good air exchange, no rales, no rhonchi. CARDIOVASCULAR: PMI not localized. , no additional sounds ABDOMEN: Normoactive bowel sounds, no tenderness, no organomegaly, no masses. EXTREMITIES: No cyanosis, no clubbing, no edema. CENTRAL NERVOUS SYSTEM: Alert, awake, oriented x 3. No neurological deficits could be appreciated. ASSESSMENT: Bilateral pneumonia, pyelonephritis, human immunodeficiency virus disease. PLAN: Continue current IV antibiotics and antiretroviral medications. . We will stop Haldol and give patient anti-emetics which interact with Haldol. A GI consult. Sundeep Fred Reyna MD cc: [id number] TT: 01/23/2017 00:05:05 Confirmation # [id number] Dictation # [id number] MTDD
[2017-01-23] MEDS: Sulfamethoxazole/Trimethoprim 160 MG in Dextrose 5% In Water 250 ML IVPB SCH ×2 (11:35→21:25)
[2017-01-23] MEDS: Emtricitabine-Tenofovir 200 mg-300 mg Tab PO SCH (11:36)
[2017-01-23] MEDS: Enoxaparin 40 mg Syringe SC SCH (11:38)
--- NOTE | 2017-01-23 13:17 | CP.PCM.PN ---
Subjective - Date & Time of Evaluation Date of Evaluation: 01/23/17 Time of Evaluation: 13:14 - Subjective Subjective: RFV: Diarrhea S: No acute events. Diarrhea resolved. No abdominal pain ,nausea or vomiting. No fever. Feels ok. Objective - Vital Signs/Intake and Output Vital Signs (last 24 hours): Temp Pulse Resp BP Pulse Ox 98.3 F 68 18 100/65 98 01/23/17 09:27 01/23/17 09:27 01/23/17 09:27 01/23/17 09:27 01/23/17 09:27 Intake and Output: 01/23/17 01/23/17 06:59 18:59 Intake Total 600 Balance 600 - Medications Medications: Current Medications Acetaminophen (Tylenol 325mg Tab) 650 mg PO Q6 PRN PRN Reason: Pain, moderate (4-7) Last Admin: 01/23/17 06:32 Dose: 650 mg Benztropine Mesylate (Cogentin) 0.5 mg PO DAILY [facility] Last Admin: 01/23/17 11:37 Dose: 0.5 mg Dolutegravir Sodium (Tivicay) 50 mg PO BID [facility] Last Admin: 01/23/17 11:36 Dose: 50 mg Emtricitabine/Tenofovir (Truvada 200 Mg-300 Mg) 1 tab PO DAILY [facility] Last Admin: 01/23/17 11:36 Dose: 1 tab Enoxaparin Sodium (Lovenox) 40 mg SC DAILY [facility] Last Admin: 01/23/17 11:38 Dose: 40 mg Ergocalciferol (Drisdol 50,000 Intl Units Cap) 1 cap PO QWK [facility] Last Admin: 01/21/17 13:30 Dose: 1 cap Escitalopram Oxalate (Lexapro) 20 mg PO DAILY [facility] Haloperidol (Haldol) 2 mg PO DAILY [facility] Last Admin: 01/22/17 11:10 Dose: 2 mg Hydroxyzine HCl (Atarax) 25 mg PO BID [facility] Last Admin: 01/23/17 11:36 Dose: 25 mg Azithromycin 500 mg/ Sodium (Chloride) 250 mls @ 167 mls/hr IVPB Q24H [facility] Last Admin: 01/22/17 17:23 Dose: 167 mls/hr Cefepime HCl 1 gm/ Dextrose 50 mls @ 100 mls/hr IVPB Q12H [facility] Last Admin: 01/22/17 21:43 Dose: 100 mls/hr Trimethoprim/Sulfamethoxazole (160 mg/ Dextrose) 250 mls @ 250 mls/hr IVPB Q12H [facility] Last Admin: 01/23/17 11:35 Dose: 250 mls/hr Ondansetron HCl (Zofran Inj) 4 mg IVP Q6 PRN PRN Reason: Nausea/Vomiting Pantoprazole Sodium (Protonix Inj) 40 mg IVP DAILY [facility] Last Admin: 01/23/17 11:37 Dose: 40 mg - Labs Labs: 01/22/17 05:58 01/22/17 05:58 - Constitutional Appears: No Acute Distress, Chronically Ill - Head Exam Head Exam: ATRAUMATIC, NORMOCEPHALIC - Eye Exam Eye Exam: absent: Scleral icterus - ENT Exam ENT Exam: Mucous Membranes Moist, Normal Oropharynx - Respiratory Exam Respiratory Exam: Clear to Ausculation Bilateral, NORMAL BREATHING PATTERN - Cardiovascular Exam Cardiovascular Exam: REGULAR RHYTHM, +S1, +S2 - GI/Abdominal Exam GI & Abdominal Exam: Soft. absent: Distended, Tenderness - Neurological Exam Neurological Exam: Alert, Oriented x3 - Skin Skin Exam: Dry, Warm Assessment and Plan - Assessment and Plan (Free Text) Assessment: 51 year old female with h/o HIV, non-compliant with HAART, Depressoin, OA with cough/fever, also with diarrhea. 1. Diarrhea 2. Intrahepatic biliary dilation Plan: - C. diff negative - diarrhea resolved for now - on antibiotics per ID - diet as tolerated - await other stool studies - uncertain etiology to biliary dilation, there appear to be surgical clips near the start of the dilation, she has prior cholecystectomy - she is asypmtomatic - consider elective MRCP
[2017-01-23] MEDS: Azithromycin 500 MG in Sodium Chloride 0.9% 250 ML IVPB SCH (17:23)
--- NOTE | 2017-01-23 21:28 | CP.PCM.PN ---
Subjective - Date & Time of Evaluation Date of Evaluation: 01/23/17 Time of Evaluation: 21:28 - Subjective Subjective: Patient is having less cough, less wheezing. Denies any chest pain or shortness of breath. No nausea vomiting noted. Tolerating the antibiotic at this time, no fever Objective - Vital Signs/Intake and Output Vital Signs (last 24 hours): Temp Pulse Resp BP Pulse Ox 98 F 67 20 107/63 96 01/23/17 16:00 01/23/17 16:00 01/23/17 16:00 01/23/17 16:00 01/23/17 16:00 - Medications Medications: Current Medications Acetaminophen (Tylenol 325mg Tab) 650 mg PO Q6 PRN PRN Reason: Pain, moderate (4-7) Last Admin: 01/23/17 06:32 Dose: 650 mg Benztropine Mesylate (Cogentin) 0.5 mg PO DAILY [facility] Last Admin: 01/23/17 11:37 Dose: 0.5 mg Dolutegravir Sodium (Tivicay) 50 mg PO BID [facility] Last Admin: 01/23/17 17:23 Dose: 50 mg Emtricitabine/Tenofovir (Truvada 200 Mg-300 Mg) 1 tab PO DAILY [facility] Last Admin: 01/23/17 11:36 Dose: 1 tab Enoxaparin Sodium (Lovenox) 40 mg SC DAILY [facility] Last Admin: 01/23/17 11:38 Dose: 40 mg Ergocalciferol (Drisdol 50,000 Intl Units Cap) 1 cap PO QWK [facility] Last Admin: 01/21/17 13:30 Dose: 1 cap Escitalopram Oxalate (Lexapro) 20 mg PO DAILY [facility] Haloperidol (Haldol) 2 mg PO DAILY [facility] Last Admin: 01/22/17 11:10 Dose: 2 mg Hydroxyzine HCl (Atarax) 25 mg PO BID [facility] Last Admin: 01/23/17 17:23 Dose: 25 mg Azithromycin 500 mg/ Sodium (Chloride) 250 mls @ 167 mls/hr IVPB Q24H [facility] Last Admin: 01/23/17 17:23 Dose: 167 mls/hr Cefepime HCl 1 gm/ Dextrose 50 mls @ 100 mls/hr IVPB Q12H [facility] Last Admin: 01/23/17 14:31 Dose: 100 mls/hr Trimethoprim/Sulfamethoxazole (160 mg/ Dextrose) 250 mls @ 250 mls/hr IVPB Q12H [facility] Last Admin: 01/23/17 21:25 Dose: 250 mls/hr Ondansetron HCl (Zofran Inj) 4 mg IVP Q6 PRN PRN Reason: Nausea/Vomiting Pantoprazole Sodium (Protonix Inj) 40 mg IVP DAILY [facility] Last Admin: 01/23/17 11:37 Dose: 40 mg - Labs Labs: 01/22/17 05:58 01/22/17 05:58 Vital signs reviewed No neck vein distention noted Chest good air entry bilaterally, no wheezing or rales noted CVS regular heart sound, no murmur noted Abdomen soft, nontender. 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
--- NOTE | 2017-01-23 22:09 | CP.PCM.PN ---
Subjective - Date & Time of Evaluation Date of Evaluation: 01/23/17 Time of Evaluation: 22:09 - Subjective Subjective: CHIEF COMPLAINTS TODAY : afebrile Feeling better Denies nausea or vomiting DENIES HEADACHE TODAY States she has migraine headaches . ROS. 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 Musculoskel : N Ext. : Pedal pulses intact, no edema or calf pain Derm : N Psych : N. PE. Pt. is alert awake in no distress. V.S As noted in the chart Head ,ear nose,throat and eyes : Normal, Neck : Supple with normal carotids. Lungs: BILATERAL RHONCHI Heart : S1 & S2 normal . . No murmur. S4 + Abd : Soft MILD TENDERNESS MID ABDOMEN AND LEFT FLANK REGION with normal bowel sounds. Neuro : Moves all ext. with no localized deficit. Ext : No edema with intact pulses. Neg. calf tenderness Derm : No rashes or decubitus ulcer. Radiology/Labs . STOOLS c. DIFFICILE NEGATIVE uRINE CULTURES +VE ECOLI-CORDOVA S cd4 HELPER CELLS 138. cd4/cd8 RATIOS 0.24. blood cultures -ve to date. Objective - Vital Signs/Intake and Output Vital Signs (last 24 hours): Temp Pulse Resp BP Pulse Ox 98 F 67 20 107/63 96 01/23/17 16:00 01/23/17 16:00 01/23/17 16:00 01/23/17 16:00 01/23/17 16:00 - Medications Medications: Current Medications Acetaminophen (Tylenol 325mg Tab) 650 mg PO Q6 PRN PRN Reason: Pain, moderate (4-7) Last Admin: 01/23/17 06:32 Dose: 650 mg Benztropine Mesylate (Cogentin) 0.5 mg PO DAILY [facility] Last Admin: 01/23/17 11:37 Dose: 0.5 mg Dolutegravir Sodium (Tivicay) 50 mg PO BID [facility] Last Admin: 01/23/17 17:23 Dose: 50 mg Emtricitabine/Tenofovir (Truvada 200 Mg-300 Mg) 1 tab PO DAILY [facility] Last Admin: 01/23/17 11:36 Dose: 1 tab Enoxaparin Sodium (Lovenox) 40 mg SC DAILY [facility] Last Admin: 01/23/17 11:38 Dose: 40 mg Ergocalciferol (Drisdol 50,000 Intl Units Cap) 1 cap PO QWK [facility] Last Admin: 01/21/17 13:30 Dose: 1 cap Escitalopram Oxalate (Lexapro) 20 mg PO DAILY [facility] Haloperidol (Haldol) 2 mg PO DAILY [facility] Last Admin: 01/22/17 11:10 Dose: 2 mg Hydroxyzine HCl (Atarax) 25 mg PO BID [facility] Last Admin: 01/23/17 17:23 Dose: 25 mg Azithromycin 500 mg/ Sodium (Chloride) 250 mls @ 167 mls/hr IVPB Q24H [facility] Last Admin: 01/23/17 17:23 Dose: 167 mls/hr Cefepime HCl 1 gm/ Dextrose 50 mls @ 100 mls/hr IVPB Q12H [facility] Last Admin: 01/23/17 14:31 Dose: 100 mls/hr Trimethoprim/Sulfamethoxazole (160 mg/ Dextrose) 250 mls @ 250 mls/hr IVPB Q12H [facility] Last Admin: 01/23/17 21:25 Dose: 250 mls/hr Ondansetron HCl (Zofran Inj) 4 mg IVP Q6 PRN PRN Reason: Nausea/Vomiting Pantoprazole Sodium (Protonix Inj) 40 mg IVP DAILY [facility] Last Admin: 01/23/17 11:37 Dose: 40 mg - Labs Labs: 01/22/17 05:58 01/22/17 05:58 Assessment and Plan (1) 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 MULTILOBAR PNEUMONIA ?PCP R/O ATYPICAL PNEUMONIA. .ABDOMINAL PAIN WITH DIARRHEA/WEIGHT LOSS R/O INFECTIOUS VS HIV ENTEROPATHY R/O MAC .UTI +VE ESCHERICHIA COLI .DEPRESSION/ANXIETY . ACQUIRED IMMUNE DEFICIENCY SYNDROME .VITAMIN d DEFICIENCY . ARTHRITIS /OSTEOPENIA. PLAN. cONTINUE iv bACTRIM 160TMP/SMX iv PIGGYBACK EVERY 12 HOURLY. cONTINUE iv CEFEPIME 1 G EVERY 12 HOURLY. vITAMIN d 50,000 UNITS 1 CAPSULE WEEKLY FOR 3 MONTHS dIARRHEA WORKUP IN PROGRESS. fOLLOW-UP SPUTUM gRAM STAIN AND CULTURE. cONTINUE TIVICAY 50 MG BY MOUTH TWICE A DAY CONTINUE tRUVADA 1 bY mOUTH oNCE A dAY dAILY. F/U LYMPHOCYTE SUBSET STUDIES. F/U VIRAL LOAD. CHECK CRYPTOCOCCAL ANTIGEN. IF HEADACHES PERSIST CONSIDER CT HEAD /AND NEURO EVALUATION.
--- NOTE | 2017-01-24 07:25 | CP.PCM.PN ---
<Tawana Lopez - Last Filed: 01/24/17 10:07> Subjective - Date & Time of Evaluation Date of Evaluation: 01/24/17 Time of Evaluation: 07:22 - Subjective Subjective: Gastroenterology Fellow/PGY4 Progress Note Patient notes two episodes of diarrhea yesterday. Tolerating regular diet though notes persistent loss of appetite. A 12-point review of systems negative except for as above. Objective - Vital Signs/Intake and Output Vital Signs (last 24 hours): Temp Pulse Resp BP Pulse Ox 97.9 F 72 18 114/66 97 01/24/17 00:00 01/24/17 00:00 01/24/17 00:00 01/24/17 00:00 01/24/17 00:00 - Medications Medications: Current Medications Acetaminophen (Tylenol 325mg Tab) 650 mg PO Q6 PRN PRN Reason: Pain, moderate (4-7) Last Admin: 01/23/17 06:32 Dose: 650 mg Benztropine Mesylate (Cogentin) 0.5 mg PO DAILY [facility] Last Admin: 01/23/17 11:37 Dose: 0.5 mg Dolutegravir Sodium (Tivicay) 50 mg PO BID [facility] Last Admin: 01/23/17 17:23 Dose: 50 mg Emtricitabine/Tenofovir (Truvada 200 Mg-300 Mg) 1 tab PO DAILY [facility] Last Admin: 01/23/17 11:36 Dose: 1 tab Enoxaparin Sodium (Lovenox) 40 mg SC DAILY [facility] Last Admin: 01/23/17 11:38 Dose: 40 mg Ergocalciferol (Drisdol 50,000 Intl Units Cap) 1 cap PO QWK [facility] Last Admin: 01/21/17 13:30 Dose: 1 cap Escitalopram Oxalate (Lexapro) 20 mg PO DAILY [facility] Haloperidol (Haldol) 2 mg PO DAILY [facility] Last Admin: 01/22/17 11:10 Dose: 2 mg Hydroxyzine HCl (Atarax) 25 mg PO BID [facility] Last Admin: 01/23/17 17:23 Dose: 25 mg Azithromycin 500 mg/ Sodium (Chloride) 250 mls @ 167 mls/hr IVPB Q24H [facility] Last Admin: 01/23/17 17:23 Dose: 167 mls/hr Cefepime HCl 1 gm/ Dextrose 50 mls @ 100 mls/hr IVPB Q12H [facility] Last Admin: 01/23/17 23:16 Dose: 100 mls/hr Trimethoprim/Sulfamethoxazole (160 mg/ Dextrose) 250 mls @ 250 mls/hr IVPB Q12H [facility] Last Admin: 01/23/17 21:25 Dose: 250 mls/hr Ondansetron HCl (Zofran Inj) 4 mg IVP Q6 PRN PRN Reason: Nausea/Vomiting Pantoprazole Sodium (Protonix Inj) 40 mg IVP DAILY [facility] Last Admin: 01/23/17 11:37 Dose: 40 mg - Labs Labs: 01/22/17 05:58 01/22/17 05:58 - Constitutional Appears: Non-toxic, No Acute Distress - Head Exam Head Exam: ATRAUMATIC, NORMOCEPHALIC - Eye Exam Eye Exam: EOMI, PERRL Pupil Exam: PERRL. absent: Miosis, Mydriatic - ENT Exam ENT Exam: Mucous Membranes Moist, Normal Oropharynx - Neck Exam Neck Exam: Full ROM, Normal Inspection - Respiratory Exam Respiratory Exam: Rhonchi, NORMAL BREATHING PATTERN. absent: Rales, Wheezes - Cardiovascular Exam Cardiovascular Exam: RRR, +S1, +S2. absent: Gallop, Rubs - GI/Abdominal Exam GI & Abdominal Exam: Soft, Normal Bowel Sounds. absent: Distended, Firm, Guarding, Rigid, Tenderness, Organomegaly, Rebound - Extremities Exam Extremities Exam: Full ROM. absent: Pedal Edema - Neurological Exam Neurological Exam: Alert, Awake - Psychiatric Exam Psychiatric exam: Normal Affect, Normal Mood - Skin Skin Exam: Dry, Intact, Normal Color, Warm Assessment and Plan - Assessment and Plan (Free Text) Assessment: 51 year old female with history of HIV, non-compliant with HAART therapy, Depression, and Arthritis presenting with diarrhea and cough. CT A/P PO/IV contrast showed predominantly right hepatic lobe intrahepatic dilatation. Plan: >C. diff negative >pending stool workup >on Cefepime, Bactrim, azithromycin >ID managing- on HAART >continue regular diet >elective MRCP to evaluate biliary dilatation >will follow clinical course <Aguilar Kearns - Last Filed: 01/24/17 11:26> Objective - Vital Signs/Intake and Output Vital Signs (last 24 hours): Temp Pulse Resp BP Pulse Ox 98 F 71 20 111/69 98 05/13/17 08:23 01/24/17 08:23 01/24/17 08:23 01/24/17 08:23 01/24/17 08:23 - Medications Medications: Current Medications Acetaminophen (Tylenol 325mg Tab) 650 mg PO Q6 PRN PRN Reason: Pain, moderate (4-7) Last Admin: 01/23/17 06:32 Dose: 650 mg Benztropine Mesylate (Cogentin) 0.5 mg PO DAILY [facility] Last Admin: 01/24/17 09:24 Dose: 0.5 mg Dolutegravir Sodium (Tivicay) 50 mg PO BID [facility] Last Admin: 01/24/17 09:23 Dose: 50 mg Emtricitabine/Tenofovir (Truvada 200 Mg-300 Mg) 1 tab PO DAILY [facility] Last Admin: 01/24/17 09:24 Dose: 1 tab Enoxaparin Sodium (Lovenox) 40 mg SC DAILY [facility] Last Admin: 01/24/17 09:24 Dose: 40 mg Ergocalciferol (Drisdol 50,000 Intl Units Cap) 1 cap PO QWK [facility] Last Admin: 01/21/17 13:30 Dose: 1 cap Escitalopram Oxalate (Lexapro) 20 mg PO DAILY [facility] Last Admin: 01/24/17 09:24 Dose: 20 mg Haloperidol (Haldol) 2 mg PO DAILY [facility] Last Admin: 01/24/17 10:55 Dose: 2 mg Hydroxyzine HCl (Atarax) 25 mg PO BID [facility] Last Admin: 01/24/17 09:24 Dose: 25 mg Azithromycin 500 mg/ Sodium (Chloride) 250 mls @ 167 mls/hr IVPB Q24H [facility] Last Admin: 01/23/17 17:23 Dose: 167 mls/hr Cefepime HCl 1 gm/ Dextrose 50 mls @ 100 mls/hr IVPB Q12H [facility] Last Admin: 01/24/17 09:25 Dose: 100 mls/hr Trimethoprim/Sulfamethoxazole (160 mg/ Dextrose) 250 mls @ 250 mls/hr IVPB Q12H [facility] Last Admin: 01/24/17 10:53 Dose: 250 mls/hr Ondansetron HCl (Zofran Inj) 4 mg IVP Q6 PRN PRN Reason: Nausea/Vomiting Pantoprazole Sodium (Protonix Inj) 40 mg IVP DAILY [facility] Last Admin: 01/24/17 09:24 Dose: 40 mg - Labs Labs: 01/22/17 05:58 01/22/17 05:58 Attending/Attestation - Attestation I have personally seen and examined this patient.: Yes I have fully participated in the care of the patient.: Yes I have reviewed all pertinent clinical information, including history, physical exam and plan: Yes Notes (Text): 01/24/17 11:25 51 year old female with h/o HIV, non-compliant with HAART, Depressoin, OA with cough/fever, also with diarrhea. 1. Diarrhea 2. Intrahepatic biliary dilation Plan: - C. diff negative - diarrhea improved, but one loose stool today - on antibiotics per ID - diet as tolerated - await other stool studies - uncertain etiology to biliary dilation, there appear to be surgical clips near the start of the dilation, she has prior cholecystectomy - she is asypmtomatic - consider elective MRCP
[2017-01-24] MEDS: Enoxaparin 40 mg Syringe SC SCH (09:24)
[2017-01-24] MEDS: Emtricitabine-Tenofovir 200 mg-300 mg Tab PO SCH (09:24)
[2017-01-24] MEDS: Sulfamethoxazole/Trimethoprim 160 MG in Dextrose 5% In Water 250 ML IVPB SCH ×2 (10:53→21:45)
[2017-01-24 12:14] LABS: BASO % 0.4 % (0.0-2.0); EOS # 0.3 K/uL (0.0-0.7); EOS % 6.6 % (0.0-4.0); LYMPH # 1.3 K/uL (1.0-4.3); LYMPH % 33.2 % (20.0-40.0); MEAN CELL VOLUME 79.6 fL (81.0-99.0); MEAN CORPUSCULAR HGB CONC 32.6 g/dL (33.0-37.0); MONO # 0.2 K/uL (0.0-0.8); MONO % 4.2 % (0.0-10.0); NRBC % 0.1 % (0.0-2.0); RED CELL DISTRIBUTION WIDTH 15.4 % (11.5-14.5)
[2017-01-24 12:16] LABS: CHLORIDE 101 mmol/L (98-107)
[2017-01-24 12:17] LABS: SODIUM 135 mmol/L (132-148)
[2017-01-24 12:19] LABS: ALKALINE PHOSPHATASE 257 U/L (38-126); AST/SGOT 23 U/L (14-36); BILIRUBIN,TOTAL 0.5 mg/dL (0.2-1.3); BLOOD UREA NITROGEN 9 mg/dL (7-17); CARBON DIOXIDE 24 mmol/L (22-30); GFR AFRICAN-AMERICAN > 60; TOTAL PROTEIN 7.3 g/dL (6.3-8.3)
[2017-01-24 12:20] LABS: ALT/SGPT 31 U/L (9-52); CALCIUM 8.8 mg/dl (8.6-10.4); GLUCOSE,RANDOM 87 mg/dL (65-105)
[2017-01-24] MEDS: Azithromycin 500 MG in Sodium Chloride 0.9% 250 ML IVPB SCH (17:51)
--- NOTE | 2017-01-24 19:35 | CP.PCM.PN ---
Subjective - Date & Time of Evaluation Date of Evaluation: 01/24/17 Time of Evaluation: 19:35 - Subjective Subjective: CHIEF COMPLAINTS TODAY : afebrile C/O POOR APPETITE Denies nausea or vomiting STATES HAD 2 SOFT STOOLS. QUANTIFERON GOLD TB TEST- INDETERMINATE ROS. 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 Musculoskel : N Ext. : Pedal pulses intact, no edema or calf pain Derm : N Psych : N. PE. Pt. is alert awake in no distress. V.S As noted in the chart Head ,ear nose,throat and eyes : Normal, Neck : Supple with normal carotids. Lungs: BILATERAL RHONCHI Heart : S1 & S2 normal . . No murmur. S4 + Abd : Soft MILD TENDERNESS MID ABDOMEN AND LEFT FLANK REGION with normal bowel sounds. Neuro : Moves all ext. with no localized deficit. Ext : No edema with intact pulses. Neg. calf tenderness Derm : No rashes or decubitus ulcer. Radiology/Labs WBC 4.2 ? BACTRIM. STOOLS C. DIFFICILE NEGATIVE URINE CULTURES +VE ECOLI-CORDOVA S SPUTUM 01/23/17 -VE AF[employer] SMEAR cd4 HELPER CELLS 138. cd4/cd8 RATIOS 0.24. blood cultures -ve to date. Objective - Vital Signs/Intake and Output Vital Signs (last 24 hours): Temp Pulse Resp BP Pulse Ox 98.1 F 70 20 103/65 99 01/24/17 15:39 01/24/17 15:39 01/24/17 15:39 01/24/17 15:39 01/24/17 15:39 Intake and Output: 01/24/17 01/25/17 18:59 06:59 Intake Total 450 Balance 450 - Medications Medications: Current Medications Acetaminophen (Tylenol 325mg Tab) 650 mg PO Q6 PRN PRN Reason: Pain, moderate (4-7) Last Admin: 01/23/17 06:32 Dose: 650 mg Benztropine Mesylate (Cogentin) 0.5 mg PO DAILY [facility] Last Admin: 01/24/17 09:24 Dose: 0.5 mg Dolutegravir Sodium (Tivicay) 50 mg PO BID [facility] Last Admin: 01/24/17 17:52 Dose: 50 mg Emtricitabine/Tenofovir (Truvada 200 Mg-300 Mg) 1 tab PO DAILY [facility] Last Admin: 01/24/17 09:24 Dose: 1 tab Enoxaparin Sodium (Lovenox) 40 mg SC DAILY [facility] Last Admin: 01/24/17 09:24 Dose: 40 mg Ergocalciferol (Drisdol 50,000 Intl Units Cap) 1 cap PO QWK [facility] Last Admin: 01/21/17 13:30 Dose: 1 cap Escitalopram Oxalate (Lexapro) 20 mg PO DAILY [facility] Last Admin: 01/24/17 09:24 Dose: 20 mg Folic Acid (Folic Acid) 1 mg PO DAILY [facility] Last Admin: 01/24/17 17:52 Dose: 1 mg Haloperidol (Haldol) 2 mg PO DAILY [facility] Last Admin: 01/24/17 10:55 Dose: 2 mg Hydroxyzine HCl (Atarax) 25 mg PO BID [facility] Last Admin: 01/24/17 17:52 Dose: 25 mg Azithromycin 500 mg/ Sodium (Chloride) 250 mls @ 167 mls/hr IVPB Q24H [facility] Last Admin: 01/24/17 17:51 Dose: 167 mls/hr Cefepime HCl 1 gm/ Dextrose 50 mls @ 100 mls/hr IVPB Q12H [facility] Last Admin: 01/24/17 09:25 Dose: 100 mls/hr Trimethoprim/Sulfamethoxazole (160 mg/ Dextrose) 250 mls @ 250 mls/hr IVPB Q12H [facility] Last Admin: 01/24/17 10:53 Dose: 250 mls/hr Ondansetron HCl (Zofran Inj) 4 mg IVP Q6 PRN PRN Reason: Nausea/Vomiting Pantoprazole Sodium (Protonix Inj) 40 mg IVP DAILY [facility] Last Admin: 01/24/17 09:24 Dose: 40 mg - Labs Labs: 01/24/17 12:03 01/24/17 12:03 Assessment and Plan (1) 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 MULTILOBAR PNEUMONIA ?PCP R/O ATYPICAL PNEUMONIA. .ABDOMINAL PAIN WITH DIARRHEA/WEIGHT LOSS R/O INFECTIOUS VS HIV ENTEROPATHY R/O MAC .UTI +VE ESCHERICHIA COLI .DEPRESSION/ANXIETY . ACQUIRED IMMUNE DEFICIENCY SYNDROME .VITAMIN d DEFICIENCY . ARTHRITIS /OSTEOPENIA. PLAN. cONTINUE iv bACTRIM 160TMP/SMX iv PIGGYBACK EVERY 12 HOURLY. cONTINUE iv CEFEPIME 1 G EVERY 12 HOURLY. vITAMIN d 50,000 UNITS 1 CAPSULE WEEKLY FOR 3 MONTHS dIARRHEA WORKUP IN PROGRESS. fOLLOW-UP SPUTUM gRAM STAIN AND CULTURE. F/U SPUTUM FOR AFB DAILY X 3 cONTINUE TIVICAY 50 MG BY MOUTH TWICE A DAY CONTINUE tRUVADA 1 bY mOUTH oNCE A dAY dAILY. F/U VIRAL LOAD. START MEGACE 400MG SUSPENSION OD DAILY. 01/24/17 ADD PO FOLINIC ACID 1MG PO DAILY 01/24/17
--- NOTE | 2017-01-24 20:59 | PN ---
DATE: 01/24/2017 SUBJECTIVE: The patient is seen today, 01/24/2017. She is afebrile and cough and vomiting has improved. The patient is currently on both Maxipime as well as azithromycin antibiotics, as well as Bactrim. PHYSICAL EXAMINATION: VITAL SIGNS: Blood pressure is 103/65, temperature 98.1, respiratory rate 20, and pulse is 70. HEENT: Pupils equal, reactive to light. Normal-appearing mucosa of the conjunctivae, oropharyngeal and nasal membrane mucosa. NECK: Supple, no JVD, no carotid bruit, no lymph node, no thyromegaly. CHEST AND LUNGS: Bilateral symmetrical expansion, good air exchange, no rales, no rhonchi. CARDIOVASCULAR: PMI not localized. S1, S2. No additional sounds. ABDOMEN: Normoactive bowel sounds, no tenderness, no organomegaly, no masses. EXTREMITIES: No cyanosis, no clubbing, no edema. CENTRAL NERVOUS SYSTEM: Alert, awake, oriented x 3. No neurological deficits could be appreciated. ASSESSMENT: Bilateral pneumonia, acquired immunodeficiency syndrome, bilateral pyelonephritis. PLAN: Continue current IV antibiotics . [facility] S Axel MOSS cc: [id number] TT: 01/24/2017 20:58:30 Confirmation # [id number] Dictation # [id number] mercy LOZANO
--- NOTE | 2017-01-25 06:54 | CP.PCM.PN ---
<Tawana Lopez - Last Filed: 01/25/17 08:21> Subjective - Date & Time of Evaluation Date of Evaluation: 01/25/17 Time of Evaluation: 06:51 - Subjective Subjective: Gastroenterology Fellow/PGY4 Progress Note Patient is tolerating regular diet. Improving loss of appetite. Improving dry cough. One formed stool yesterday. 12-point review of systems negative except for as above. Objective - Vital Signs/Intake and Output Vital Signs (last 24 hours): Temp Pulse Resp BP Pulse Ox 98.3 F 63 18 110/70 98 01/24/17 23:50 01/24/17 23:50 01/24/17 23:50 01/24/17 23:50 01/24/17 23:50 Intake and Output: 01/24/17 01/25/17 18:59 06:59 Intake Total 450 300 Balance 450 300 - Medications Medications: Current Medications Acetaminophen (Tylenol 325mg Tab) 650 mg PO Q6 PRN PRN Reason: Pain, moderate (4-7) Last Admin: 01/23/17 06:32 Dose: 650 mg Benztropine Mesylate (Cogentin) 0.5 mg PO DAILY [facility] Last Admin: 01/24/17 09:24 Dose: 0.5 mg Dolutegravir Sodium (Tivicay) 50 mg PO BID [facility] Last Admin: 01/24/17 17:52 Dose: 50 mg Emtricitabine/Tenofovir (Truvada 200 Mg-300 Mg) 1 tab PO DAILY [facility] Last Admin: 01/24/17 09:24 Dose: 1 tab Enoxaparin Sodium (Lovenox) 40 mg SC DAILY [facility] Last Admin: 01/24/17 09:24 Dose: 40 mg Ergocalciferol (Drisdol 50,000 Intl Units Cap) 1 cap PO QWK [facility] Last Admin: 01/21/17 13:30 Dose: 1 cap Escitalopram Oxalate (Lexapro) 20 mg PO DAILY [facility] Last Admin: 01/24/17 09:24 Dose: 20 mg Folic Acid (Folic Acid) 1 mg PO DAILY [facility] Last Admin: 01/24/17 17:52 Dose: 1 mg Haloperidol (Haldol) 2 mg PO DAILY [facility] Last Admin: 01/24/17 10:55 Dose: 2 mg Hydroxyzine HCl (Atarax) 25 mg PO BID [facility] Last Admin: 01/24/17 17:52 Dose: 25 mg Azithromycin 500 mg/ Sodium (Chloride) 250 mls @ 167 mls/hr IVPB Q24H [facility] Last Admin: 01/24/17 17:51 Dose: 167 mls/hr Cefepime HCl 1 gm/ Dextrose 50 mls @ 100 mls/hr IVPB Q12H [facility] Last Admin: 01/24/17 21:05 Dose: 100 mls/hr Trimethoprim/Sulfamethoxazole (160 mg/ Dextrose) 250 mls @ 250 mls/hr IVPB Q12H [facility] Last Admin: 01/24/17 21:45 Dose: 250 mls/hr Megestrol Acetate (Megace) 400 mg PO DAILY [facility] Ondansetron HCl (Zofran Inj) 4 mg IVP Q6 PRN PRN Reason: Nausea/Vomiting Pantoprazole Sodium (Protonix Inj) 40 mg IVP DAILY [facility] Last Admin: 01/24/17 09:24 Dose: 40 mg - Labs Labs: 01/24/17 12:03 01/24/17 12:03 - Constitutional Appears: Non-toxic, No Acute Distress, Chronically Ill - Head Exam Head Exam: ATRAUMATIC, NORMOCEPHALIC - Eye Exam Eye Exam: EOMI, PERRL Pupil Exam: PERRL. absent: Miosis, Mydriatic - ENT Exam ENT Exam: Mucous Membranes Moist, Normal Oropharynx - Neck Exam Neck Exam: Full ROM, Normal Inspection - Respiratory Exam Respiratory Exam: Decreased Breath Sounds, Clear to Ausculation Bilateral, Rhonchi. absent: Rales, Wheezes - Cardiovascular Exam Cardiovascular Exam: RRR, +S1, +S2. absent: Gallop, Rubs - GI/Abdominal Exam GI & Abdominal Exam: Soft, Normal Bowel Sounds. absent: Distended, Firm, Guarding, Rigid, Tenderness, Organomegaly, Rebound - Extremities Exam Extremities Exam: Full ROM. absent: Pedal Edema - Neurological Exam Neurological Exam: Alert, Awake - Psychiatric Exam Psychiatric exam: Normal Affect, Normal Mood - Skin Skin Exam: Dry, Intact, Normal Color, Warm Assessment and Plan - Assessment and Plan (Free Text) Assessment: 51 year old female with history of HIV, non-compliant with HAART therapy, Depression, and Arthritis presenting with diarrhea and cough. CT A/P PO/IV contrast showed predominantly right hepatic lobe intrahepatic dilatation. Active treatment of multifocal pneumonia and E. coli UTI. Plan: >C. diff negative >pending stool workup >on Cefepime, Bactrim, azithromycin >ID managing- on HAART, TB workup >continue regular diet >elective MRCP-evaluate biliary dilatation once respiratory status optimized, on airborne isolation for TB workup - prior cholecystectomy <[place] - Last Filed: 01/25/17 11:20> Objective - Vital Signs/Intake and Output Vital Signs (last 24 hours): Temp Pulse Resp BP Pulse Ox 97.9 F 66 20 103/68 97 01/25/17 08:01 01/25/17 08:01 01/25/17 08:01 01/25/17 08:01 01/25/17 08:01 Intake and Output: 01/25/17 01/25/17 06:59 18:59 Intake Total 300 Balance 300 - Medications Medications: Current Medications Acetaminophen (Tylenol 325mg Tab) 650 mg PO Q6 PRN PRN Reason: Pain, moderate (4-7) Last Admin: 01/23/17 06:32 Dose: 650 mg Benztropine Mesylate (Cogentin) 0.5 mg PO DAILY [facility] Last Admin: 01/25/17 10:29 Dose: 0.5 mg Dolutegravir Sodium (Tivicay) 50 mg PO BID [facility] Last Admin: 01/25/17 10:29 Dose: 50 mg Emtricitabine/Tenofovir (Truvada 200 Mg-300 Mg) 1 tab PO DAILY [facility] Last Admin: 01/25/17 10:29 Dose: 1 tab Enoxaparin Sodium (Lovenox) 40 mg SC DAILY [facility] Last Admin: 01/25/17 10:30 Dose: 40 mg Ergocalciferol (Drisdol 50,000 Intl Units Cap) 1 cap PO QWK [facility] Last Admin: 01/21/17 13:30 Dose: 1 cap Escitalopram Oxalate (Lexapro) 20 mg PO DAILY [facility] Last Admin: 01/25/17 10:30 Dose: 20 mg Folic Acid (Folic Acid) 1 mg PO DAILY [facility] Last Admin: 01/25/17 10:29 Dose: 1 mg Haloperidol (Haldol) 2 mg PO DAILY [facility] Last Admin: 01/25/17 10:31 Dose: 2 mg Hydroxyzine HCl (Atarax) 25 mg PO BID [facility] Last Admin: 01/25/17 10:29 Dose: 25 mg Azithromycin 500 mg/ Sodium (Chloride) 250 mls @ 167 mls/hr IVPB Q24H [facility] Last Admin: 01/24/17 17:51 Dose: 167 mls/hr Cefepime HCl 1 gm/ Dextrose 50 mls @ 100 mls/hr IVPB Q12H [facility] Last Admin: 01/25/17 10:28 Dose: 100 mls/hr Trimethoprim/Sulfamethoxazole (160 mg/ Dextrose) 250 mls @ 250 mls/hr IVPB Q12H [facility] Last Admin: 01/25/17 10:28 Dose: 250 mls/hr Megestrol Acetate (Megace) 400 mg PO DAILY [facility] Last Admin: 01/25/17 10:29 Dose: 400 mg Ondansetron HCl (Zofran Inj) 4 mg IVP Q6 PRN PRN Reason: Nausea/Vomiting Pantoprazole Sodium (Protonix Inj) 40 mg IVP DAILY [facility] Last Admin: 01/25/17 10:30 Dose: 40 mg - Labs Labs: 01/25/17 11:04 01/24/17 12:03 Attending/Attestation - Attestation I have personally seen and examined this patient.: Yes I have fully participated in the care of the patient.: Yes I have reviewed all pertinent clinical information, including history, physical exam and plan: Yes Notes (Text): 01/25/17 11:19 51 year old female with h/o HIV, non-compliant with HAART, Depressoin, OA with cough/fever, also with diarrhea. 1. Diarrhea 2. Intrahepatic biliary dilation Plan: - C. diff negative - diarrhea improved - on antibiotics per ID - diet as tolerated - await other stool studies - uncertain etiology to biliary dilation, there appear to be surgical clips near the start of the dilation, she has prior cholecystectomy - she is asypmtomatic - recommend elective MRCP, which can be pursued outpatient - will sign off
[2017-01-25] MEDS: Sulfamethoxazole/Trimethoprim 160 MG in Dextrose 5% In Water 250 ML IVPB SCH ×2 (10:28→22:44)
[2017-01-25] MEDS: Emtricitabine-Tenofovir 200 mg-300 mg Tab PO SCH (10:29)
[2017-01-25] MEDS: Megestrol Acetate 40 mg/ml Cup PO SCH (10:29)
[2017-01-25] MEDS: Enoxaparin 40 mg Syringe SC SCH (10:30)
[2017-01-25 11:09] LABS: BASO % 0.5 % (0.0-2.0); EOS # 0.2 K/uL (0.0-0.7); EOS % 4.1 % (0.0-4.0); HEMATOCRIT 31.3 % (34.0-47.0); LYMPH # 1.9 K/uL (1.0-4.3); LYMPH % 37.2 % (20.0-40.0); MEAN CELL VOLUME 79.4 fL (81.0-99.0); MEAN CORPUSCULAR HEMOGLOBIN 25.8 pg (27.0-31.0); MEAN CORPUSCULAR HGB CONC 32.5 g/dL (33.0-37.0); MEAN PLATELET VOLUME 8.3 fL (7.2-11.7); MONO # 0.2 K/uL (0.0-0.8); MONO % 4.3 % (0.0-10.0); NRBC % 0.1 % (0.0-2.0); RED CELL DISTRIBUTION WIDTH 15.1 % (11.5-14.5); WHITE BLOOD COUNT 5.1 K/uL (4.8-10.8)
[2017-01-25 11:22] LABS: CHLORIDE 100 mmol/L (98-107); POTASSIUM 4.1 mmol/L (3.6-5.2); SODIUM 135 mmol/L (132-148)
[2017-01-25 11:24] LABS: AST/SGOT 31 U/L (14-36); BILIRUBIN,TOTAL 0.5 mg/dL (0.2-1.3); CARBON DIOXIDE 24 mmol/L (22-30); GFR AFRICAN-AMERICAN > 60
[2017-01-25 11:25] LABS: ALB/GLOB RATIO 1.1 (1.0-2.1); ALKALINE PHOSPHATASE 261 U/L (38-126); ALT/SGPT 28 U/L (9-52); BLOOD UREA NITROGEN 11 mg/dL (7-17); CALCIUM 8.9 mg/dl (8.6-10.4); GLUCOSE,RANDOM 84 mg/dL (65-105); TOTAL PROTEIN 7.5 g/dL (6.3-8.3)
--- NOTE | 2017-01-25 18:29 | CP.PCM.PN ---
Subjective - Date & Time of Evaluation Date of Evaluation: 01/25/17 Time of Evaluation: 18:28 - Subjective Subjective: Patient is feeling a lot better, today cough is negative, minimal mucus production, no chest pain Diarrhea is negative. But still having loss of appetite and poor intake Objective - Vital Signs/Intake and Output Vital Signs (last 24 hours): Temp Pulse Resp BP Pulse Ox 98.7 F 70 20 101/70 97 01/25/17 16:50 01/25/17 16:50 01/25/17 16:50 01/25/17 16:50 01/25/17 16:50 Intake and Output: 01/25/17 01/25/17 06:59 18:59 Intake Total 300 520 Balance 300 520 Chest good air entry regular heart sound nontender abdomen extremities edema negative - Medications Medications: Current Medications Acetaminophen (Tylenol 325mg Tab) 650 mg PO Q6 PRN PRN Reason: Pain, moderate (4-7) Last Admin: 01/23/17 06:32 Dose: 650 mg Benztropine Mesylate (Cogentin) 0.5 mg PO DAILY [facility] Last Admin: 01/25/17 10:29 Dose: 0.5 mg Dolutegravir Sodium (Tivicay) 50 mg PO BID [facility] Last Admin: 01/25/17 10:29 Dose: 50 mg Emtricitabine/Tenofovir (Truvada 200 Mg-300 Mg) 1 tab PO DAILY [facility] Last Admin: 01/25/17 10:29 Dose: 1 tab Enoxaparin Sodium (Lovenox) 40 mg SC DAILY [facility] Last Admin: 01/25/17 10:30 Dose: 40 mg Ergocalciferol (Drisdol 50,000 Intl Units Cap) 1 cap PO QWK [facility] Last Admin: 01/21/17 13:30 Dose: 1 cap Escitalopram Oxalate (Lexapro) 20 mg PO DAILY [facility] Last Admin: 01/25/17 10:30 Dose: 20 mg Folic Acid (Folic Acid) 1 mg PO DAILY [facility] Last Admin: 01/25/17 10:29 Dose: 1 mg Haloperidol (Haldol) 2 mg PO DAILY [facility] Last Admin: 01/25/17 10:31 Dose: 2 mg Hydroxyzine HCl (Atarax) 25 mg PO BID [facility] Last Admin: 01/25/17 10:29 Dose: 25 mg Azithromycin 500 mg/ Sodium (Chloride) 250 mls @ 167 mls/hr IVPB Q24H [facility] Last Admin: 01/24/17 17:51 Dose: 167 mls/hr Cefepime HCl 1 gm/ Dextrose 50 mls @ 100 mls/hr IVPB Q12H [facility] Last Admin: 01/25/17 10:28 Dose: 100 mls/hr Trimethoprim/Sulfamethoxazole (160 mg/ Dextrose) 250 mls @ 250 mls/hr IVPB Q12H [facility] Last Admin: 01/25/17 10:28 Dose: 250 mls/hr Megestrol Acetate (Megace) 400 mg PO DAILY [facility] Last Admin: 01/25/17 10:29 Dose: 400 mg Ondansetron HCl (Zofran Inj) 4 mg IVP Q6 PRN PRN Reason: Nausea/Vomiting Pantoprazole Sodium (Protonix Inj) 40 mg IVP DAILY [facility] Last Admin: 01/25/17 10:30 Dose: 40 mg - Labs Labs: 01/25/17 11:04 01/25/17 11:04 Assessment and Plan - Assessment and Plan (Free Text) Assessment: Patient with multilobar pneumonia, responding to treatment. Less likely TB, so far negative. Continue the current treatment and will follow the patient
[2017-01-25] MEDS: Azithromycin 500 MG in Sodium Chloride 0.9% 250 ML IVPB SCH (18:59)
--- NOTE | 2017-01-26 07:21 | PN ---
DATE: 01/23/2017 ____ PHYSICAL EXAMINATION: VITAL SIGNS: Blood pressure 111/69, temperature 98, respiratory rate 20, and pulse 71. HEENT: Pupils equal and reactive to light. Normal appearing mucosa of the conjunctivae, oropharyngeal and nasal membrane mucosa. NECK: Supple. No JVD. No carotid bruit. No lymph node. No thyromegaly. CHEST AND LUNGS: Bilateral symmetrical expansion, no rales, no rhonchi. CARDIOVASCULAR: PMI not localized. S1, S2. No additional sounds. ABDOMEN: Normoactive bowel sounds, no tenderness, no organomegaly, no masses. EXTREMITIES: No cyanosis, no clubbing, no edema. CENTRAL NERVOUS SYSTEM: Alert, awake, oriented x 3. No neurological deficits could be appreciated. ASSESSMENT: Bilateral pneumonia , pyelonephritis CD4 count of 138 . PLAN: Continue ID recommendations. Sundeep Fred Reyna MD cc: [id number] TT: 01/24/2017 21:03:35 Confirmation # [id number] Dictation # [id number] LOZANO
[2017-01-26] MEDS: Megestrol Acetate 40 mg/ml Cup PO SCH (09:46)
[2017-01-26] MEDS: Sulfamethoxazole/Trimethoprim 160 MG in Dextrose 5% In Water 250 ML IVPB SCH ×2 (09:47→22:21)
[2017-01-26] MEDS: Pantoprazole 40 mg EC Tab PO SCH (09:48)
[2017-01-26] MEDS: Enoxaparin 40 mg Syringe SC SCH (09:48)
[2017-01-26] MEDS: Emtricitabine-Tenofovir 200 mg-300 mg Tab PO SCH (09:50)
--- NOTE | 2017-01-26 12:59 | CP.PCM.PN ---
Subjective - Date & Time of Evaluation Date of Evaluation: 01/26/17 Time of Evaluation: 12:59 - Subjective Subjective: CHIEF COMPLAINTS TODAY : afebrile C/O POOR APPETITE Denies nausea or vomiting, tolerating diet. DIARRHEA IMPROVED QUANTIFERON GOLD TB TEST- INDETERMINATE ROS. HEENT : N.neck supple Resp : No SOB wheezing, +VE PRODUCTIVE COUGH Cardio : No CP, PND orthopnea GI : DIARRHEA PRESENT, DENIES NAUSEA OR VOMITING abdominal pain improved. CARD FEEDER : No headache , focal deficit. Musculoskel : N Ext. : Pedal pulses intact, no edema or calf pain Derm : N Psych : N. PE. Pt. is alert awake in no distress. V.S As noted in the chart Head ,ear nose,throat and eyes : Normal, Neck : Supple with normal carotids. Lungs: BILATERAL RHONCHI Heart : S1 & S2 normal . . No murmur. S4 + Abd : Soft with normal bowel sounds. Neuro : Moves all ext. with no localized deficit. Ext : No edema with intact pulses. Neg. calf tenderness Derm : No rashes or decubitus ulcer. Radiology/Labs CRYPTOCOCCUS ANTIGEN -NOT DETECTED. STOOLS C. DIFFICILE NEGATIVE URINE CULTURES +VE ECOLI-CORDOVA S SPUTUM 01/23/17 -VE AFB SMEAR cd4 HELPER CELLS 138. cd4/cd8 RATIOS 0.24. QUANTIFERON GOLD TB TEST- INDETERMINATE blood cultures -ve to date. Objective - Vital Signs/Intake and Output Vital Signs (last 24 hours): Temp Pulse Resp BP Pulse Ox 98.3 F 71 18 109/70 97 01/26/17 07:00 01/26/17 07:00 01/26/17 07:00 01/26/17 07:00 01/26/17 07:00 Intake and Output: 01/26/17 01/26/17 06:59 18:59 Intake Total 800 Balance 800 - Medications Medications: Current Medications Acetaminophen (Tylenol 325mg Tab) 650 mg PO Q6 PRN PRN Reason: Pain, moderate (4-7) Last Admin: 01/23/17 06:32 Dose: 650 mg Benztropine Mesylate (Cogentin) 0.5 mg PO DAILY [facility] Last Admin: 01/26/17 09:50 Dose: 0.5 mg Dolutegravir Sodium (Tivicay) 50 mg PO BID [facility] Last Admin: 01/26/17 09:48 Dose: 50 mg Emtricitabine/Tenofovir (Truvada 200 Mg-300 Mg) 1 tab PO DAILY [facility] Last Admin: 01/26/17 09:50 Dose: 1 tab Enoxaparin Sodium (Lovenox) 40 mg SC DAILY [facility] Last Admin: 01/26/17 09:48 Dose: 40 mg Ergocalciferol (Drisdol 50,000 Intl Units Cap) 1 cap PO QWK [facility] Last Admin: 01/21/17 13:30 Dose: 1 cap Escitalopram Oxalate (Lexapro) 20 mg PO DAILY [facility] Last Admin: 01/26/17 09:48 Dose: 20 mg Folic Acid (Folic Acid) 1 mg PO DAILY [facility] Last Admin: 01/26/17 10:04 Dose: 1 mg Haloperidol (Haldol) 2 mg PO DAILY [facility] Last Admin: 01/26/17 09:49 Dose: 2 mg Hydroxyzine HCl (Atarax) 25 mg PO BID [facility] Last Admin: 01/26/17 09:49 Dose: 25 mg Azithromycin 500 mg/ Sodium (Chloride) 250 mls @ 167 mls/hr IVPB Q24H [facility] Last Admin: 01/25/17 18:59 Dose: 167 mls/hr Cefepime HCl 1 gm/ Dextrose 50 mls @ 100 mls/hr IVPB Q12H [facility] Last Admin: 01/26/17 09:47 Dose: 100 mls/hr Trimethoprim/Sulfamethoxazole (160 mg/ Dextrose) 250 mls @ 250 mls/hr IVPB Q12H [facility] Last Admin: 01/26/17 09:47 Dose: 250 mls/hr Megestrol Acetate (Megace) 400 mg PO DAILY [facility] Last Admin: 01/26/17 09:46 Dose: 400 mg Ondansetron HCl (Zofran Inj) 4 mg IVP Q6 PRN PRN Reason: Nausea/Vomiting Pantoprazole Sodium (Protonix Ec Tab) 40 mg PO DAILY [facility] Last Admin: 01/26/17 09:48 Dose: 40 mg - Labs Labs: 01/25/17 11:04 01/25/17 11:04 - Constitutional Appears: No Acute Distress, Chronically Ill - Head Exam Head Exam: NORMAL INSPECTION - Eye Exam Eye Exam: EOMI, PERRL - ENT Exam ENT Exam: Normal Oropharynx - Neck Exam Neck Exam: Normal Inspection. absent: Meningismus - Respiratory Exam Respiratory Exam: Rhonchi (bilateral) - Cardiovascular Exam Cardiovascular Exam: REGULAR RHYTHM, +S1, +S2 - GI/Abdominal Exam GI & Abdominal Exam: Soft, Normal Bowel Sounds. absent: Tenderness, Organomegaly - Extremities Exam Extremities Exam: absent: Calf Tenderness, Pedal Edema - Neurological Exam Neurological Exam: Awake, CN II-XII Intact, Oriented x3, Reflexes Normal - Psychiatric Exam Psychiatric exam: Normal Mood - Skin Skin Exam: Normal Color, Warm Assessment and Plan (1) Acquired immune deficiency syndrome (AIDS) with cachexia Status: Acute (2) Pneumonia Status: Acute (3) UTI (urinary tract infection) Status: Acute (4) Gastroenteritis Status: Acute - Assessment and Plan (Free Text) Plan: IMPRESSION; . MULTILOBAR PNEUMONIA ?PCP R/O ATYPICAL PNEUMONIA. .ABDOMINAL PAIN WITH DIARRHEA/WEIGHT LOSS R/O INFECTIOUS VS HIV ENTEROPATHY R/O MAC .UTI +VE ESCHERICHIA COLI .DEPRESSION/ANXIETY . ACQUIRED IMMUNE DEFICIENCY SYNDROME .VITAMIN d DEFICIENCY . ARTHRITIS /OSTEOPENIA. PLAN. cONTINUE iv bACTRIM 160TMP/SMX iv PIGGYBACK EVERY 12 HOURLY. cONTINUE iv CEFEPIME 1 G EVERY 12 HOURLY. vITAMIN d 50,000 UNITS 1 CAPSULE WEEKLY FOR 3 MONTHS dIARRHEA WORKUP IN PROGRESS. TB W/U ORDERED. AIRBORNE PRECAUTIONS( TB SUSPECTED ) F/U STOOLS FOR AFB X3 F/U SPUTUM FOR AFB DAILY X 3 cONTINUE TIVICAY 50 MG BY MOUTH TWICE A DAY CONTINUE tRUVADA 1 bY mOUTH oNCE A dAY dAILY. F/U VIRAL LOAD. ON MEGACE 400MG SUSPENSION OD DAILY. 01/24/17 PO FOLINIC ACID 1MG PO DAILY 01/24/17
[2017-01-26] MEDS: Azithromycin 500 MG in Sodium Chloride 0.9% 250 ML IVPB SCH (17:53)
--- NOTE | 2017-01-27 06:49 | PN ---
DATE: 01/26/2017 She overall feels better. PHYSICAL EXAMINATION: VITAL SIGNS: Blood pressure is 100/66, temperature 98.4, respiratory rate 18 and pulse 73. HEENT: Pupils equal, reactive to light. Normal-appearing mucosa of the conjunctivae, oropharyngeal and nasal membrane mucosa. NECK: Supple, no JVD, no carotid bruit, no lymph node, no thyromegaly. CHEST AND LUNGS: Bilateral symmetrical expansion, good air exchange, no rales, no rhonchi. CARDIOVASCULAR: PMI not localized. S1, S2. No additional sounds. ABDOMEN: Normoactive bowel sounds, no tenderness, no organomegaly, no masses. EXTREMITIES: No cyanosis, no clubbing, no edema. CENTRAL NERVOUS SYSTEM: Alert, awake, oriented x 2. No neurological deficits could be appreciated. ASSESSMENT: 1. Bilateral pneumonia. 2. Bilateral pyelonephritis, right more than left. 3. Acquired immunodeficiency syndrome. PLAN: Continue current IV antibiotics. The AFB stain sputum was collected for 3rd sample today. . Follow ID recommendations. Sundeep Fred Reyna MD cc: [id number] TT: 01/26/2017 22:51:18 Confirmation # [id number] Dictation # [id number]
[2017-01-27] MEDS: Sulfamethoxazole/Trimethoprim 160 MG in Dextrose 5% In Water 250 ML IVPB SCH (10:46)
[2017-01-27] MEDS: Emtricitabine-Tenofovir 200 mg-300 mg Tab PO SCH (10:47)
[2017-01-27] MEDS: Enoxaparin 40 mg Syringe SC SCH (10:47)
[2017-01-27] MEDS: Megestrol Acetate 40 mg/ml Cup PO SCH (10:47)
[2017-01-27] MEDS: Pantoprazole 40 mg EC Tab PO SCH (10:47)
--- NOTE | 2017-01-27 13:31 | CP.PCM.PN ---
Subjective - Date & Time of Evaluation Date of Evaluation: 01/27/17 Time of Evaluation: 13:31 - Subjective Subjective: /AFEBRILE. OFFERS NO NEW COMPLAINTS. DENIES ANY MORE DIARRHEA. DENIES SHORTNESS OF BREATH. OCCASIONAL COUGH.. sPUTUM FOR afb 3 NEGATIVE. CASE DISCUSSED WITH NURSE PRACTITIONER. PATIENT CAN START BY MOUTH bACTRIM ONE DOUBLE STRENGTH TWICE A DAY FOR 14 DAYS F/U BY BY MOUTH bACTRIM ONE DOUBLE STRENGTH thursday AND thursday. cONTINUE HAART THERAPY pATIENT [place] [facility] [place] Objective - Vital Signs/Intake and Output Vital Signs (last 24 hours): Temp Pulse Resp BP Pulse Ox 98.5 F 64 20 103/66 97 01/27/17 08:30 01/27/17 08:30 01/27/17 08:30 01/27/17 08:30 01/27/17 08:30 - Medications Medications: Current Medications Acetaminophen (Tylenol 325mg Tab) 650 mg PO Q6 PRN PRN Reason: Pain, moderate (4-7) Last Admin: 01/23/17 06:32 Dose: 650 mg Benztropine Mesylate (Cogentin) 0.5 mg PO DAILY [facility] Last Admin: 01/27/17 10:47 Dose: 0.5 mg Dolutegravir Sodium (Tivicay) 50 mg PO BID [facility] Last Admin: 01/27/17 10:47 Dose: 50 mg Emtricitabine/Tenofovir (Truvada 200 Mg-300 Mg) 1 tab PO DAILY [facility] Last Admin: 01/27/17 10:47 Dose: 1 tab Enoxaparin Sodium (Lovenox) 40 mg SC DAILY [facility] Last Admin: 01/27/17 10:47 Dose: 40 mg Ergocalciferol (Drisdol 50,000 Intl Units Cap) 1 cap PO QWK [facility] Last Admin: 01/21/17 13:30 Dose: 1 cap Escitalopram Oxalate (Lexapro) 20 mg PO DAILY [facility] Last Admin: 01/27/17 10:47 Dose: 20 mg Folic Acid (Folic Acid) 1 mg PO DAILY [facility] Last Admin: 01/27/17 10:47 Dose: 1 mg Haloperidol (Haldol) 2 mg PO DAILY [facility] Last Admin: 01/27/17 10:47 Dose: 2 mg Hydroxyzine HCl (Atarax) 25 mg PO BID [facility] Last Admin: 01/27/17 10:47 Dose: 25 mg Azithromycin 500 mg/ Sodium (Chloride) 250 mls @ 167 mls/hr IVPB Q24H [facility] Last Admin: 01/26/17 17:53 Dose: 167 mls/hr Cefepime HCl 1 gm/ Dextrose 50 mls @ 100 mls/hr IVPB Q12H [facility] Last Admin: 01/27/17 10:46 Dose: 100 mls/hr Trimethoprim/Sulfamethoxazole (160 mg/ Dextrose) 250 mls @ 250 mls/hr IVPB Q12H [facility] Last Admin: 01/27/17 10:46 Dose: 250 mls/hr Megestrol Acetate (Megace) 400 mg PO DAILY [facility] Last Admin: 01/27/17 10:47 Dose: 400 mg Ondansetron HCl (Zofran Inj) 4 mg IVP Q6 PRN PRN Reason: Nausea/Vomiting Pantoprazole Sodium (Protonix Ec Tab) 40 mg PO DAILY [facility] Last Admin: 01/27/17 10:47 Dose: 40 mg - Labs Labs: 01/25/17 11:04 01/25/17 11:04 - Constitutional Appears: No Acute Distress - Eye Exam Eye Exam: EOMI, PERRL - ENT Exam ENT Exam: Mucous Membranes Moist, Normal Oropharynx - Neck Exam Neck Exam: Normal Inspection (FEW RHONCHI'S.) - Respiratory Exam Respiratory Exam: Rhonchi (FEW.) - GI/Abdominal Exam GI & Abdominal Exam: Soft, Normal Bowel Sounds. 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
[2017-01-27 16:23] VITALS: BP 106/64; PULSE 74; RESP 18; TEMP 98.6; O2SAT 98
--- NOTE | 2017-01-27 16:58 | CP.PCM.PN ---
Subjective - Date & Time of Evaluation Date of Evaluation: 01/27/17 Time of Evaluation: 16:58 - Subjective Subjective: Alert and orientedx3, no sob or chest pains, no fever. Objective - Vital Signs/Intake and Output Vital Signs (last 24 hours): Temp Pulse Resp BP Pulse Ox 98.6 F 74 18 106/64 98 01/27/17 16:00 01/27/17 16:00 01/27/17 16:00 01/27/17 16:00 01/27/17 16:00 - Medications Medications: Current Medications Acetaminophen (Tylenol 325mg Tab) 650 mg PO Q6 PRN PRN Reason: Pain, moderate (4-7) Last Admin: 01/23/17 06:32 Dose: 650 mg Benztropine Mesylate (Cogentin) 0.5 mg PO DAILY [facility] Last Admin: 01/27/17 10:47 Dose: 0.5 mg Dolutegravir Sodium (Tivicay) 50 mg PO BID [facility] Last Admin: 01/27/17 10:47 Dose: 50 mg Emtricitabine/Tenofovir (Truvada 200 Mg-300 Mg) 1 tab PO DAILY [facility] Last Admin: 01/27/17 10:47 Dose: 1 tab Enoxaparin Sodium (Lovenox) 40 mg SC DAILY [facility] Last Admin: 01/27/17 10:47 Dose: 40 mg Ergocalciferol (Drisdol 50,000 Intl Units Cap) 1 cap PO QWK [facility] Last Admin: 01/21/17 13:30 Dose: 1 cap Escitalopram Oxalate (Lexapro) 20 mg PO DAILY [facility] Last Admin: 01/27/17 10:47 Dose: 20 mg Folic Acid (Folic Acid) 1 mg PO DAILY [facility] Last Admin: 01/27/17 10:47 Dose: 1 mg Haloperidol (Haldol) 2 mg PO DAILY [facility] Last Admin: 01/27/17 10:47 Dose: 2 mg Hydroxyzine HCl (Atarax) 25 mg PO BID [facility] Last Admin: 01/27/17 10:47 Dose: 25 mg Azithromycin 500 mg/ Sodium (Chloride) 250 mls @ 167 mls/hr IVPB Q24H [facility] Last Admin: 01/26/17 17:53 Dose: 167 mls/hr Cefepime HCl 1 gm/ Dextrose 50 mls @ 100 mls/hr IVPB Q12H [facility] Last Admin: 01/27/17 10:46 Dose: 100 mls/hr Trimethoprim/Sulfamethoxazole (160 mg/ Dextrose) 250 mls @ 250 mls/hr IVPB Q12H [facility] Last Admin: 01/27/17 10:46 Dose: 250 mls/hr Megestrol Acetate (Megace) 400 mg PO DAILY [facility] Last Admin: 01/27/17 10:47 Dose: 400 mg Ondansetron HCl (Zofran Inj) 4 mg IVP Q6 PRN PRN Reason: Nausea/Vomiting Pantoprazole Sodium (Protonix Ec Tab) 40 mg PO DAILY [facility] Last Admin: 01/27/17 10:47 Dose: 40 mg - Labs Labs: 01/25/17 11:04 01/25/17 11:04 Assessment and Plan - Assessment and Plan (Free Text) Assessment: Patient is seen and examined. Alert orientedx3, no distress. Sputum AFB X3, no cough. D/W DR Chung and DR Reyna, discharge plan for today on po bactrim DS bid for 2 weeks then 3 times a week. To follow up with PMD and IDin 1-2 weeks.
--- NOTE | 2017-01-28 10:36 | DS ---
REASON FOR ADMISSION: This is a 51-year-old female with history of acquired immunodeficiency syndrome, who was admitted for pneumonia and pyelonephritis. COURSE OF HOSPITALIZATION: The patient was admitted initially in Emergency Room and then she was admitted to the floor as she was found to have bilateral lung infiltrates. The patient also was found to have some stranding of the perinephric tissue, right more than left, suggestive of pyelonephritis. The patient was compliant to medications and medical followup. The patient was compliant to her medication during this hospital stay and she was being treated with IV antibiotics, as well as her anti-HIV medications. The patient had an ID consult done by Dr. Donna Chung. The patient was stable and discharged home in stable condition to follow up with her primary care physician, as well as with Dr. Gray, the infectious disease physician. DIAGNOSES: 1. Bilateral pneumonia. 2. Pyelonephritis. 3. Acquired immunodeficiency syndrome. [facility] Fred Reyna MD cc: [id number] TT: 01/28/2017 10:36:12 winsome LOZANO
[2017-01-29 22:18] LABS: HIV-1 GENOTYPE DETECTED
== END 2017-01-27 17:30 | disposition home or self-care (01) | DRG 714 ==
LOC: C.ER 13:05 → C.9E 19:02 → C.5T 22:37
PROVIDERS: ADMIT Internal Medicine; ATTEND Internal Medicine
DX: B20 Human immunodeficiency virus [HIV] disease (principal); J18.9 Pneumonia, unspecified organism; N10 Acute pyelonephritis; B96.89 Other specified bacterial agents as the cause of diseases classified elsewhere; R07.81 Pleurodynia; R19.7 Diarrhea, unspecified; M19.012 Primary osteoarthritis, left shoulder; F41.8 Other specified anxiety disorders; Z91.14 Patient's other noncompliance with medication regimen; Z87.891 Personal history of nicotine dependence; Z90.49 Acquired absence of other specified parts of digestive tract; Z87.01 Personal history of pneumonia (recurrent)

== ENCOUNTER 2017-05-24 11:37 | Emergency (ER) | payer MEDICAID ==
--- NOTE | 2017-05-24 12:25 | C.PDOC ---
History Of Present Illness 05/24/2017 Latoya Anna is a 51 year old female, whose past medical history includes HIV ( CD4 200) and pnemonia two months ago, presents to the emergency department complaining of a 103 degree fever that began yesterday. Her associated symptoms include a cough with sputum, pleuritic chest pain that radiates to the back, left ear pain, rhinorrhea, and generalized body aches. She notes taking Tylenol and Aleve prior to arrival and did not have a fever today. Patient denies shortness of breath, nausea, vomiting, abdominal pain, neck pain or other complaints. Time Seen by Provider: 05/24/17 11:56 Chief Complaint (Nursing): Flu-like Symptoms History Per: Patient History/Exam Limitations: no limitations Onset/Duration Of Symptoms: Days (1 day) Current Symptoms Are (Timing): Still Present Location Of Pain: Ear(s) (left ear) Associated Symptoms: Fever, Cough, Sputum. denies: Vomiting, Diarrhea Ear Symptoms: Left: Ear Pain Past Medical History Reviewed: Historical Data, Nursing Documentation, Vital Signs Vital Signs: Last Vital Signs Temp 97.6 F 05/24/17 15:24 Pulse 80 05/24/17 15:24 Resp 17 05/24/17 15:24 BP 92/63 L 05/24/17 15:24 Pulse Ox 99 05/27/17 05:17 - Medical History PMH: Arthritis, Bronchitis, Depression, Diverticulitis, Gall Bladder Disease, HIV, Pneumonia Denies: Anemia, Anxiety, Asthma, Atrial Fibrillation, Bipolar Disorder, Cardia Arrhythmia, CHF, COPD, Crohn's Disease, Emphysema, Fractures, Gastritis, HTN, Hypercholesterolemia, Mitral Valve Prolapse, Osteoporosis, Pancreatitis, Paranoia, Peripheral Edema, Post Traumatic Stress Disorder, Pulmonary Embolism, Chronic Kidney Disease, Rheumatoid Arthritis, Schizophrenia, Sickle Cell Disease , Sleep Apnea Surgical History: Cholecystectomy Denies: Appendectomy, CABG, Carotid Endarterectomy, Coronary Stent, Pacemaker , Tonsillectomy Family History: States: Unknown Family Hx, Hypertension - Social History Hx Alcohol Use: No Hx Substance Use: No - Immunization History Hx Tetanus Toxoid Vaccination: No Hx Influenza Vaccination: No Hx Pneumococcal Vaccination: Yes Review Of Systems Constitutional: Positive for: Fever ENT: Positive for: Ear Pain (left ear), Nose Discharge Cardiovascular: Positive for: Chest Pain (pleuritic chest pain) Respiratory: Positive for: Cough, Sputum. Negative for: Shortness of Breath Musculoskeletal: Positive for: Back Pain. Negative for: Neck Pain Neurological: Negative for: Dizziness Physical Exam - Physical Exam Appears: Well, Non-toxic, Other (uncomfortable) Skin: Normal Color, Warm, Dry Head: Atraumatic, Normacephalic Eye(s): bilateral: Normal Inspection, PERRL, EOMI Ear(s): Left: Other (occluded with cerumen) Nose: Discharge Throat: Normal, No Erythema Neck: Normal ROM Lymphatic: No Adenopathy Cardiovascular: Rhythm Regular, No Murmur Respiratory: Decreased Breath Sounds, No Accessory Muscle Use, No Wheezing, Other (crackles in the bases) Gastrointestinal/Abdominal: Soft, No Tenderness Extremity: No Pedal Edema Neurological/Psych: Oriented x3, Normal Speech, Normal Motor, Normal Sensation ED Course And Treatment - Laboratory Results Result Diagrams: 05/24/17 12:47 05/24/17 12:47 O2 Sat by Pulse Oximetry: 99 (room air) Pulse Ox Interpretation: Normal Medical Decision Making Medical Decision Makin05/24/2017 Impression: 51 year old female with general body aches. Crackles in bases of lungs. Plan: -- CXR -- Labs -- Sodium Chloride iv fluid -- Reassess and disposition Progress Notes: pt feeling better after ivf. ; no pna noted on cxr. bp sligly low, pt not dizzy or lightheaeded. will d/c home with albuterol and zpak, f/u pmd Disposition Counseled Patient/Family Regarding: Studies Performed, Diagnosis, Need For Followup, Rx Given - Disposition Referrals: Lucy Reyna MD [Staff Provider] - Disposition: HOME/ ROUTINE Disposition Time: 15:13 Condition: IMPROVED Additional Instructions: Follow up with your doctor in the next 1-2 days. Take antibiotics as prescribed. Use inhaler 2 puffs every 8 hours. Ibuprofen for pain. Return to ER for any worsening symptoms. Prescriptions: Albuterol HFA [Ventolin HFA 90 mcg/actuation (8 g)] 2 puff IH Q6 #1 inhaler Azithromycin [Zithromax] 250 mg PO DAILY #4 tab Ibuprofen [Motrin] 600 mg PO TID #30 tab Instructions: Upper Respiratory Infection (ED) Forms: General Discharge Instructions, Blink (air taxi) (Divehi) - Clinical Impression Clinical Impression: Influenza-like illness - Scribe Statement The provider has reviewed the documentation as recorded by the Scribe 05/24/2017 Scribe Attestation: Mague Perez MD Scribe Attestation: All medical record entries made by the Scribe were at my direction and personally dictated by me. I have reviewed the chart and agree that the record accurately reflects my personal performance of the history, physical exam, medical decision making, and the department course for this patient. I have also personally directed, reviewed, and agree with the discharge instructions and disposition.
[2017-05-24] MEDS ORDERED: Sodium Chloride 0.9% 1,000 ML IV ONE (12:26)
[2017-05-24 12:50] LABS: BASO % 0.7 % (0.0-2.0); EOS # 0.2 K/uL (0.0-0.7); EOS % 3.5 % (0.0-4.0); HEMATOCRIT 36.1 % (34.0-47.0); LYMPH # 1.8 K/uL (1.0-4.3); MEAN CELL VOLUME 81.4 fL (81.0-99.0); MEAN CORPUSCULAR HEMOGLOBIN 26.6 pg (27.0-31.0); MEAN CORPUSCULAR HGB CONC 32.7 g/dL (33.0-37.0); MEAN PLATELET VOLUME 8.6 fL (7.2-11.7); MONO # 0.4 K/uL (0.0-0.8); RED CELL DISTRIBUTION WIDTH 15.1 % (11.5-14.5); WHITE BLOOD COUNT 6.3 K/uL (4.8-10.8)
[2017-05-24 13:01] LABS: ALB/GLOB RATIO 1.3 (1.0-2.1); ALKALINE PHOSPHATASE 336 U/L (38-126); ALT/SGPT 154 U/L (9-52); AST/SGOT 135 U/L (14-36); BILIRUBIN,TOTAL 0.9 mg/dL (0.2-1.3); BLOOD UREA NITROGEN 14 mg/dL (7-17); CALCIUM 9.6 mg/dl (8.6-10.4); CARBON DIOXIDE 22 mmol/L (22-30); CHLORIDE 103 mmol/L (98-107); GFR AFRICAN-AMERICAN > 60; GLUCOSE,RANDOM 92 mg/dL (65-105); POTASSIUM 3.8 mmol/L (3.6-5.2); SODIUM 141 mmol/L (132-148); TOTAL PROTEIN 7.5 g/dL (6.3-8.3)
[2017-05-24 15:25] VITALS: BP 92/63; PULSE 80; RESP 17; TEMP 97.6
--- NOTE | 2017-05-24 17:10 | RAD ---
HISTORY: Pneumonia COMPARISON: 01/20/2017. Single-view chest 03/06/2017 CT thorax TECHNIQUE: Chest PA and lateral FINDINGS: LUNGS: No active pulmonary disease. PLEURA: No significant pleural effusion identified. No pneumothorax apparent. CARDIOVASCULAR: Normal. OSSEOUS STRUCTURES: No significant abnormalities. VISUALIZED UPPER ABDOMEN: Normal. OTHER FINDINGS: None. IMPRESSION: No active disease. Resolved infiltrates apparent on prior studies.
[2017-05-27 05:17] VITALS: O2SAT 99
== END 2017-05-24 15:25 | disposition home or self-care (01) ==
LOC: C.ER 11:37
DX: J11.1 Influenza due to unidentified influenza virus with other respiratory manifestations (principal)

== ENCOUNTER 2017-06-17 16:14 | Inpatient (IN) | payer MEDICAID ==
[2017-06-17] MEDS ORDERED: Albuterol-Ipratrop 3 mg / 0.5 (3 ml) UD IH STA (16:53)
[2017-06-17] MEDS ORDERED: Albuterol-Ipratrop 3 mg / 0.5 (3 ml) UD ONE ×2 (16:55→17:11)
--- NOTE | 2017-06-17 17:02 | C.PDOC ---
History Of Present Illness 51 year old female, whose past medical history includes HIV, is sent to the ED by Dr. Reyna for evaluation of headache, fever, chills and cough that is productive of thick, yellow sputum for around 1 week. Patient also reports feeling winded and shortness of breath with exertion. Patient states she has been compliant with her HIV medication and her recent CD4 count was 200. Patient was referred to the ED to rule out cryptococcal meningitis. Patient denies any other symptoms prior to the onset of this acute episode as well as chest pain, nausea, vomiting. Time Seen by Provider: 06/17/17 16:38 Chief Complaint (Nursing): Headache History Per: Patient History/Exam Limitations: no limitations Onset/Duration Of Symptoms: Days (1 week ) Current Symptoms Are (Timing): Still Present Quality: denies: "Pain" Associated Symptoms: denies: Nausea, Vomiting Additional History Per: Patient Past Medical History Reviewed: Historical Data, Nursing Documentation, Vital Signs Vital Signs: Last Vital Signs Temp 99 F 06/17/17 16: Pulse 99 H 06/17/17 16:17 Resp 20 06/17/17 16:17 BP 118/78 06/17/17 16:17 Pulse Ox 100 06/17/17 17:06 - Medical History PMH: Arthritis, Bronchitis, Depression, Diverticulitis, Gall Bladder Disease, HIV, Pneumonia Denies: Anemia, Anxiety, Asthma, Atrial Fibrillation, Bipolar Disorder, Cardia Arrhythmia, CHF, COPD, Crohn's Disease, Emphysema, Fractures, Gastritis, HTN, Hypercholesterolemia, Mitral Valve Prolapse, Osteoporosis, Pancreatitis, Paranoia, Peripheral Edema, Post Traumatic Stress Disorder, Pulmonary Embolism, Chronic Kidney Disease, Rheumatoid Arthritis, Schizophrenia, Sickle Cell Disease , Sleep Apnea Surgical History: Cholecystectomy Denies: Appendectomy, CABG, Carotid Endarterectomy, Coronary Stent, Pacemaker , Tonsillectomy Family History: States: Unknown Family Hx, Hypertension - Social History Hx Alcohol Use: No Hx Substance Use: No - Immunization History Hx Tetanus Toxoid Vaccination: No Hx Influenza Vaccination: Yes (05/2017) Hx Pneumococcal Vaccination: Yes (05/2017) Review Of Systems Constitutional: Positive for: Fever Respiratory: Positive for: Cough, SOB with Excertion, Sputum (thick, yellow ) Gastrointestinal: Negative for: Nausea, Vomiting Neurological: Positive for: Headache Physical Exam - Physical Exam Appears: Non-toxic, No Acute Distress Skin: Normal Color, Warm, Dry Head: Atraumatic, Normacephalic Eye(s): bilateral: Normal Inspection Ear(s): Bilateral: Normal Nose: Normal, No Discharge Oral Mucosa: Moist Throat: Normal, No Erythema, No Exudate Neck: Normal ROM, Supple, No Other (meningeal signs ) Chest: Symmetrical, No Deformity, No Tenderness Cardiovascular: Rhythm Regular, No Murmur, Other (tachycardic ) Respiratory: Rhonchi (coarse, to right base ), Wheezing (diffuse ), Other ( persistent, wet-sounding cough ) Extremity: Normal ROM, Capillary Refill (less than 2 seconds ) Neurological/Psych: Oriented x3, Normal Speech, Normal Cognition Gait: Steady ED Course And Treatment - Laboratory Results Result Diagrams: 06/17/17 17:15 06/17/17 17:15 Lab Interpretation: No Acute Changes O2 Sat by Pulse Oximetry: 100 (on RA) Pulse Ox Interpretation: Normal - Radiology CXR: Viewed By Me, Read By Radiologist CXR Interpretation: Yes: No Acute Disease Progress Note: labs, CXR, EKG ordered and reviewed. Patient received Albuterol INH. Reevaluation Time: 19:45 Reassessment Condition: Improved - Physician Consult Information Time Consulting Physician Contacted: 19:47 Physician Contacted: Lucy Reyna Outcome Of Conversation: Patient to be admitted for treatment of possible pneumonia in an immunocompromised patient. Disposition - Disposition Disposition: HOSPITALIZED Disposition Time: 19:48 Condition: STABLE Forms: [facility] ([place]) - POA Present On Arrival: None - Clinical Impression Clinical Impression: Pneumonia, Immunocompromised state - Scribe Statement The provider has reviewed the documentation as recorded by the Scribe (Eve Isbell) Provider Attestation: All medical record entries made by the Scribe were at my direction and personally dictated by me. I have reviewed the chart and agree that the record accurately reflects my personal performance of the history, physical exam, medical decision making, and the department course for this patient. I have also personally directed, reviewed, and agree with the discharge instructions and disposition.
[2017-06-17 17:04] LABS: ABG ALLEN TEST POS; ARTERIAL BLOOD HGB O2 SAT 95.5 % (95.0-98.0); CARBOXYHEMOGLOBIN 2.3 % (0.5-1.5); DRAW SITE RRA; HHB 0.6 % (0.0-5.0); METHEMOGLOBIN 1.6 % (0.0-3.0)
[2017-06-17 17:20] LABS: BASO % 0.3 % (0.0-2.0); EOS # 0.2 K/uL (0.0-0.7); EOS % 2.1 % (0.0-4.0); HEMATOCRIT 33.9 % (34.0-47.0); LYMPH # 1.7 K/uL (1.0-4.3); LYMPH % 23.2 % (20.0-40.0); MEAN CELL VOLUME 80.3 fL (81.0-99.0); MEAN CORPUSCULAR HEMOGLOBIN 26.6 pg (27.0-31.0); MEAN CORPUSCULAR HGB CONC 33.2 g/dL (33.0-37.0); MEAN PLATELET VOLUME 8.5 fL (7.2-11.7); MONO # 0.2 K/uL (0.0-0.8); MONO % 3.4 % (0.0-10.0); WHITE BLOOD COUNT 7.2 K/uL (4.8-10.8)
[2017-06-17 17:30] LABS: CHLORIDE 100 mmol/L (98-107); POTASSIUM 3.8 mmol/L (3.6-5.2); SODIUM 136 mmol/L (132-148)
[2017-06-17 17:32] LABS: GFR AFRICAN-AMERICAN > 60
[2017-06-17 17:33] LABS: ALKALINE PHOSPHATASE 264 U/L (38-126); ALT/SGPT 70 U/L (9-52); AST/SGOT 52 U/L (14-36); BILIRUBIN,TOTAL 0.4 mg/dL (0.2-1.3); BLOOD UREA NITROGEN 14 mg/dL (7-17); CALCIUM 9.3 mg/dl (8.6-10.4); CARBON DIOXIDE 25 mmol/L (22-30); GLUCOSE,RANDOM 170 mg/dL (65-105); TOTAL PROTEIN 7.9 g/dL (6.3-8.3)
--- NOTE | 2017-06-17 18:11 | RAD ---
PROCEDURE: CHEST RADIOGRAPH, 1 VIEW HISTORY: Pneumonia COMPARISON: 05/24/2017. FINDINGS: LUNGS: The lungs are well inflated and clear. PLEURA: No pneumothorax or pleural fluid seen. CARDIOVASCULAR: Normal. OSSEOUS STRUCTURES: No significant abnormalities. VISUALIZED UPPER ABDOMEN: Normal. OTHER FINDINGS: None. IMPRESSION: No active pulmonary disease.
[2017-06-17] MEDS ORDERED: cefTRIAXone IV 1 gm in Dextros 50 ML IVPB ONE (19:40)
[2017-06-17] MEDS ORDERED: Azithromycin 500mg/250ML NS 500 MG/250 ML BAG IV ONE (19:45)
[2017-06-17] MEDS ORDERED: Pneumococcal 23-Valent Vaccine IM ONE (22:27)
[2017-06-17] MEDS ORDERED: Influenza Vaccine 60 mcg/0.5 mL SYR (4YR UP) IM ONE (22:30)
[2017-06-18] MEDS ORDERED: Albuterol HFA 90 mcg/actuation (8 g) IH SCH
[2017-06-18] MEDS: Emtricitabine-Tenofovir 200 mg-300 mg Tab PO SCH (11:45)
[2017-06-18] MEDS: Acyclovir 500 MG in Sodium Chloride 0.9% 100 ML IV SCH ×2 (11:45→18:18)
[2017-06-18] MEDS ORDERED: Gadodiamide 287 MG/ML VIAL (15ML) IV ONE (11:47)
--- NOTE | 2017-06-18 12:12 | CP.PCM.CON ---
History of Present Illness - History of Present Illness History of Present Illness: INFECTIOUS DISEASE CONSULTATION; HPI;51-year-old female with past medical history off HIV since 1999, on antiretroviral therapy including CHAPIS [place], who is admitted as patient sent from PMDs office for evaluation of cough with fever or chills and productive yellowish phlegm for about a week. Patient also states she has been having headaches off and on for the last 1 week but states she does have history of migraines infrequently. Patient also states she has been complaining of shortness of breath on exertion. Patient has previous history of pneumonia in the past few years ago. Patient admits that her last CD4 count was 200 with undetectable viral load. Patient chest x-ray on admission was unremarkable. A cryptococcal antigen was performed which is negative. Infectious disease consultation requested by PMD for evaluation off pneumonia and rule out meningitis. Patient denies any photophobia or change in vision. Patient denies history of seizures. Patient was seen by neurologist this a.m. and sent for MRI of the brain. Patient does have 2 small vesicular lesions on her upper lip which she says she gets sometimes. Patient denies any previous history of shingles or herpes genitalis. Denies any recent sick contacts or recent travel. Patient lives with her daughter. PATIENT ADMITS SHE GOT HIV FROM SEXUAL CONTACT WITH HER EX-BOYFRIEND. PMH: Arthritis, Bronchitis, Depression, Diverticulitis, Gall Bladder Disease, HIV, Pneumonia Surgical History: Cholecystectomy Family History: States: Unknown Family Hx, Hypertension - Social History Hx Alcohol Use: No Hx Substance Use: No - Immunization History Hx Tetanus Toxoid Vaccination: No Hx Influenza Vaccination: Yes (05/2017) Hx Pneumococcal Vaccination: Yes (05/2017) ALLERGY; TOMATOES, ORANGE, RISPERIDONE. Review of Systems - Constitutional Constitutional: Chills, Fever, Headache. absent: Night Sweats, Weight Loss - EENT Eyes: absent: Change in Vision, Floaters, Photophobia, Loss of Vision Ears: absent: Ear Pain Nose/Mouth/Throat: Mouth Lesions (HERPES SIMPLEX LESIONS UPPER LIP NOTICED). absent: Nasal Congestion, Post Nasal Drip, Odynophagia, Sore Throat - Respiratory Respiratory: Cough, Excessive Mucous Production, Change in Mucous Color. absent : Hemoptysis - Gastrointestinal Gastrointestinal: Diarrhea. absent: Abdominal Pain, Nausea, Vomiting - Genitourinary Genitourinary: absent: Change in Urinary Stream, Dysuria, Freq UTI - Musculoskeletal Musculoskeletal: Arthralgias. absent: Neck Pain - Neurological Neurological: Headaches. absent: Confusion, Syncope, Tremor, Other Visual Disturbances - Hematologic/Lymphatic Hematologic: As Per HPI. absent: Lymphadenopathy Past Patient History - Infectious Disease Hx of Infectious Diseases: None - Past Medical History & Family History Past Medical History?: Yes - Past Social History Smoking Status: Never Smoked - CARDIAC Hx Atrial Fibrillation: No Hx Cardia Arrhythmia: No Hx Congestive Heart Failure: No Hx Hypercholesterolemia: No Hx Hypertension: No Hx Mitral Valve Prolapse: No Hx Pacemaker: No Hx Peripheral Edema: No - PULMONARY Hx Asthma: No Hx Bronchitis: Yes Hx Chronic Obstructive Pulmonary Disease (COPD): No Hx Emphysema: No Hx Pneumonia: Yes Hx Pulmonary Embolism: No Hx Sleep Apnea: No - NEUROLOGICAL Hx Neurological Disorder: No - HEENT Hx HEENT Problems: No - RENAL Hx Chronic Kidney Disease: No - ENDOCRINE/METABOLIC Hx Endocrine Disorders: No - HEMATOLOGICAL/ONCOLOGICAL Hx Anemia: No Hx Human Immunodeficiency Virus (HIV): Yes Hx Sickle Cell Disease: No - INTEGUMENTARY Hx Dermatological Problems: No - MUSCULOSKELETAL/RHEUMATOLOGICAL Hx Arthritis: Yes Hx Falls: No Hx Fractures: No Hx Osteoporosis: No Hx Rheumatoid Arthritis: No - GASTROINTESTINAL Hx Crohn's Disease: No Hx Diverticulitis: Yes Hx Gall Bladder Disease: Yes Hx Gastritis: No Hx Pancreatitis: No - GENITOURINARY/GYNECOLOGICAL Hx Genitourinary Disorders: No - PSYCHIATRIC Hx Anxiety: No Hx Bipolar Disorder: No Hx Depression: Yes Hx Paranoia: No Hx Post Traumatic Stress Disorder: No Hx Schizophrenia: No Hx Substance Use: No - SURGICAL HISTORY Hx Appendectomy: No Hx Carotid Endarterectomy: No Hx Cholecystectomy: Yes Hx Coronary Artery Bypass Graft: No Hx Coronary Stent: No Hx Tonsillectomy: No - ANESTHESIA Hx Anesthesia: Yes Hx Anesthesia Reactions: No Hx Malignant Hyperthermia: No Meds Allergies/Adverse Reactions: Allergies Allergy/AdvReac Type Severity Reaction Status Date / Time orange Allergy Verified 06/17/17 16:22 risperidone [From Risperdal] Allergy RASH Verified 06/17/17 16:22 tomato Allergy RASH Verified 06/17/17 16:22 - Medications Medications: Current Medications Albuterol (Ventolin Hfa 90 Mcg/Actuation (8 G)) 2 puff IH Q6 [facility] Benztropine Mesylate (Cogentin) 0.5 mg PO DAILY [facility] Dolutegravir Sodium (Tivicay) 50 mg PO DAILY [facility] Emtricitabine/Tenofovir (Truvada 200 Mg-300 Mg) 1 tab PO DAILY [facility] Ergocalciferol (Drisdol 50,000 Intl Units Cap) 1 cap PO QWK [facility] Escitalopram Oxalate (Lexapro) 20 mg PO DAILY [facility] Haloperidol (Haldol) 2 mg PO DAILY [facility] Hydroxyzine HCl (Atarax) 25 mg PO BID [facility] Ceftriaxone Sodium 1 gm/ (Sodium Chloride) 100 mls @ 100 mls/hr IVPB DAILY [facility] Azithromycin 250 mg/ Sodium (Chloride) 250 mls @ 250 mls/hr IVPB Q24H [facility] Acyclovir 500 mg/ Sodium (Chloride) 100 mls @ 100 mls/hr IV Q8H [facility] Ibuprofen (Motrin Tab) 600 mg PO TID [facility] Physical Exam - Constitutional Appears: No Acute Distress - Head Exam Head Exam: NORMAL INSPECTION - Eye Exam Eye Exam: EOMI, PERRL - ENT Exam ENT Exam: Mucous Membranes Dry (HERPES SIMPLEX LESIONS NOTED UPON UPPER LIP.), Normal Exam - Neck Exam Neck exam: Positive for: Normal Inspection. Negative for: Lymphadenopathy, Meningismus - Respiratory Exam Respiratory Exam: Clear to Auscultation Bilateral - Cardiovascular Exam Cardiovascular Exam: REGULAR RHYTHM, +S1 - GI/Abdominal Exam GI & Abdominal Exam: Normal Bowel Sounds, Soft. absent: Organomegaly - Extremities Exam Extremities exam: Positive for: pedal pulses present. Negative for: calf tenderness, pedal edema Additional comments: NO hOMANS POSITIVE. - Neurological Exam Neurological exam: Alert, CN II-XII Intact, Oriented x3, Reflexes Normal - Psychiatric Exam Psychiatric exam: Normal Mood - Skin Skin Exam: Dry, Normal Color, Warm Results - Vital Signs Recent Vital Signs: Last Vital Signs Temp 98.0 F 06/18/17 07:05 Pulse 72 06/18/17 07:05 Resp 20 06/18/17 07:05 BP 96/60 L 06/18/17 07:05 Pulse Ox 98 06/18/17 07:05 - Labs Result Diagrams: 06/17/17 17:15 06/17/17 17:15 Labs: Laboratory Results - last 24 hr 06/17/17 06/17/17 06/17/17 17:01 17:15 17:15 WBC 7.2 RBC 4.22 Hgb 11.2 Hct 33.9 L MCV 80.3 L MCH 26.6 L MCHC 33.2 RDW 15.0 H Plt Count 184 MPV 8.5 Neut % (Auto) 71.0 Lymph % (Auto) 23.2 [place] % (Auto) 3.4 Eos % (Auto) 2.1 Baso % (Auto) 0.3 Neut # 5.1 Lymph # 1.7 [place] # 0.2 Eos # 0.2 Baso # 0.0 Puncture Site Rra pCO2 33 L pO2 96 HCO3 25.4 ABG pH 7.47 H ABG Total CO2 25.0 ABG O2 Saturation 99.4 H ABG Base Excess 0.7 ABG Hemoglobin 10.7 L ABG Carboxyhemoglobin 2.3 H POC ABG HHb (Measured) 0.6 ABG Methemoglobin 1.6 Esdras Test Pos A-a O2 Difference 12.0 Respiratory Index 0.1 Hgb O2 Saturation 95.5 Liter Flow 0 FiO2 21.0 Sodium 136 Potassium 3.8 Chloride 100 Carbon Dioxide 25 Anion Gap 14 BUN 14 Creatinine 0.6 L Est GFR ( Amer) > 60 Est GFR (Non-Af Amer) > 60 Random Glucose 170 H Calcium 9.3 Total Bilirubin 0.4 AST 52 H D ALT 70 H D Alkaline Phosphatase 264 H D Total Protein 7.9 Albumin 3.9 Globulin 4.0 H Albumin/Globulin Ratio 1.0 Urine HCG, Qual Cryptococcus Ag 06/17/17 06/17/17 17:42 17:42 WBC RBC Hgb Hct MCV MCH MCHC RDW Plt Count MPV Neut % (Auto) Lymph % (Auto) [place] % (Auto) Eos % (Auto) Baso % (Auto) Neut # Lymph # [place] # Eos # Baso # Puncture Site pCO2 pO2 HCO3 ABG pH ABG Total CO2 ABG O2 Saturation ABG Base Excess ABG Hemoglobin ABG Carboxyhemoglobin POC ABG HHb (Measured) ABG Methemoglobin Esdras Test A-a O2 Difference Respiratory Index Hgb O2 Saturation Liter Flow FiO2 Sodium Potassium Chloride Carbon Dioxide Anion Gap BUN Creatinine Est GFR ( Amer) Est GFR (Non-Af Amer) Random Glucose Calcium Total Bilirubin AST ALT Alkaline Phosphatase Total Protein Albumin Globulin Albumin/Globulin Ratio Urine HCG, Qual Negative Cryptococcus Ag Negative - Imaging and Cardiology Chest x-ray Status: Report reviewed by me (no active disease.) Assessment & Plan (1) Headache Assessment and Plan: MRI OF THE BRAIN PENDING. IF NEGATIVE,CONSIDER LP AND APPROPRIATE CULTURES. AGREE WITH NEUROLOGIST TO ADD ACYCLOVIR TO THE PRESENT REGIMEN. CONTINUE iv ANTIBIOTICS. Status: Acute (2) Pneumonia Assessment and Plan: FOLLOW-UP SPUTUM CULTURE TO ADJUST ANTIBIOTICS. cHECK LDH. ADD IV iv bACTRIM TO THE PRESENT REGIMEN. dc zITHROMAX IN VIEW OF ELEVATED TRANSAMINITIS. 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 cONTINUE tRUVADA ONE CAPSULE ONCE A DAY. cONTINUE TIVICAY 50 MG ONCE A DAY. Status: Acute (4) Gastroenteritis Assessment and Plan: STOOLS FOR LEUKOCYTES AND CULTURE. STOOLS FOR CRYPTOSPORIDIOSIS. Status: Acute - Assessment and Plan (Free Text) Plan: pancultures. RPR. ESR. HIV-1 RNA PCR quantitative levels T lymphocyte subset studies. Toxoplasmosis IgG antibody CMV -iGg ANTIBODY HEPATITIS SCREEN A,B,C. LDH D. DIMER. PRO CALCITONIN CONTINUE iv CEFTRIAXONE 1 G ONCE A DAY DAILY. 06/18/17. CONTINUE iv ACYCLOVIR 500 MG EVERY 8 HOURLY. 06/18/17. DC ZITHROMAX.. START iv BACTRIM 240 MG TMP/SMX iv PIGGYBACK EVERY 12 HOURLY. 06/18/17. FOLLOW-UP MRI - BRAIN. F/U LFTS. WILL FOLLOW ALONG WITH YOU AND MAKE RECOMMENDATIONS NEEDED.
--- NOTE | 2017-06-18 12:15 | MRI ---
PROCEDURE: MRI BRAIN WITH AND WITHOUT CONTRAST HISTORY: meningeal infectious process Vs space occupying COMPARISON: None. TECHNIQUE: Multiplanar, multisequence MR images of the brain were obtained with and without intravenous contrast enhancement. A dose of of the 11 cc of Omniscan was utilized for intravenous contrast. FINDINGS: HEMORRHAGE: None DWI: No evidence of an acute or early subacute infarction. BRAIN PARENCHYMA: There are 2 tiny, punctate long TR hyper intense foci identified in the right frontal lobe white matter with remaining white matter signal within normal limits above and below the tentorium including throughout the cul corpus callosum. Brainstem signal intensity is unremarkable throughout. Neither of these foci enhance pattern and are of indeterminate clinical origin and significance. There is no mass effect. The sulci and cisterns as well as ventricular volume are normal. There is no suspicious extra-axial fluid collection identified. The midline brain and appears unremarkable and normal corticomedullary differentiation is seen diffusely. ENHANCEMENT: No abnormal intracranial enhancement. The meninges appear within normal limits throughout. VENTRICLES: Unremarkable. No hydrocephalus. CRANIUM: Unremarkable. ORBITS: Grossly unremarkable. PARANASAL SINUSES/MASTOIDS: Partial or near complete opacification affects the majority of the brain sinuses sparing only the right frontal sinus a minimally. Findings reflect thomas sinusitis. VASCULAR SYSTEM: Skull base flow voids intact. OTHER FINDINGS: None . IMPRESSION: 1. Two punctate long TR hyperintensities identified in the right frontal lobe which do not enhance and the remaining white matter is within normal limits in signal including the corpus callosum. This appearance is nonspecific and is of uncertain clinical significance and origin. There is in fact no abnormal intracranial enhancement. Differs diagnosis this minimal finding varies from hypertension and migraine headaches up to demyelination. 2. Incidental thomas sinusitis with the right frontal sinus least affected.
[2017-06-18] MEDS ORDERED: Azithromycin 250 MG in Sodium Chloride 0.9% 250 ML IVPB SCH (13:00)
--- NOTE | 2017-06-18 13:25 | CON ---
DATE: REASON FOR ADMISSION: Cough, cold, and headache. CHIEF COMPLAINT: The patient was brought in to [facility] with a history of headache, fever and chills, with a cough for the last one week. From a neurological point of view, I was called into evaluate her for her headache. HISTORY OF PRESENT ILLNESS: Ms. Latoya Anna is a 51-year-old right-handed female who was in her usual state of health for the last one week developed cough, viral syndrome with headache. She brings up phlegm. At times, she feels chills. The headache is not associating with any visual or bulbar dysfunction. No history of neck pain. No history of vocal weakness of her body. No history of loss of consciousness. No history of involuntary movements. PAST MEDICAL HISTORY: Being diagnosed HIV in 1999, has been on medication. Depression. PERSONAL HISTORY: She is a mother of three children, history of one . She is disabled. No history of drug abuse. No history of smoking or alcohol use. REVIEW OF SYSTEMS: A 12-point review of system has been reviewed. Neurological system shows headache. MEDICATIONS: She is on azithromycin, ceftriaxone, Cogentin, ergocalciferol, haloperidol, Lexapro, and ibuprofen. PHYSICAL EXAMINATION VITAL SIGNS: Blood pressure of 97/63, mean arterial pressure of 74, respiratory rate of 16, and temperature of 98.1. NECK: Supple. No carotid bruits. HEART: Sounds regular. CHEST: Fair air entry. EXTREMITIES: No edema in the legs. NEUROLOGIC: Mental status examination: She is awake, alert, oriented to person, place, and time. Speech is clear. Naming, repetition, fluency, and comprehension all within normal. CRANIAL NERVE EXAMINATION: Visual field intact. Pupils are reactive to light. Extraocular movements normal. No nystagmus. No facial sensory deficits. No facial asymmetry. Hearing is normal. Tongue is midline. Good gag. EXAMINATION OF THE NECK: No meningismus. No Brudzinski's sign and no Kernig's signs noted. EXAMINATION OF THE CERVICAL SPINE AND SKULL: No tenderness. MOTOR EXAMINATION: An outstretched hand with eyes closed and no drift noted. Power is symmetric on either side. DEEP TENDON REFLEXES: Biceps, brachialis, triceps are 2+ on either side. Both knees are 1+. Both ankles are absent. The patient shows high arch to feet. Ankles are 1+. Plantars are downgoing. SENSORY EXAMINATION: Mild sensory neuropathy. Sensory motor neuropathy. COORDINATION: Bjfysu-qkos-lfvmvy test is intact. GAIT: Deferred at this time. CONCLUSION: Upon reviewing her history and neurological examination, Ms. Latoya Anna has been presenting with non-specific headache, which is probably secondary to her viral syndrome associating with persistent cough. The patient has already been on antibiotics. The patient will be observed closely and if the patient's symptoms has not resolved at that point I would consider spinal tap to rule out any infectious source for her headache. DIAGNOSTIC DATA: CT of the chest is clear. LABORATORY DATA: WBC is 7.2, , hematocrit is 33.9, and platelets are 184. ABGs; pH of 7.47, pCO2 of 33, pO2 of 96, and bicarbonate of 25.4 with oxygen saturation of 99.4. Sodium of 136, potassium of 3.8, chloride of 100, bicarbonate of 25, BUN of 14, GFR more than 60, and random glucose of 170. ALT is 70 and AST is 52. Urine hCG negative. Streptococcal antigen is also negative. RECOMMENDATIONS: 1. MRI of the brain is recommended. 2. Continue IV hydration, appropriate antibiotic as per ID. 3. Continue observation for now. No spinal tap is necessary for now. The patient is asymptomatic, I doubt the patient has meningeal process. The patient will be followed closely with you. Mazin Lynn MD MTDD
[2017-06-18] MEDS: Sulfamethoxazole/Trimethoprim 240 MG in Dextrose 5% In Water 250 ML IVPB SCH (14:05)
[2017-06-18] MEDS: Albuterol HFA 90 mcg/actuation (8 g) IH SCH (19:00)
[2017-06-19] MEDS: Albuterol HFA 90 mcg/actuation (8 g) IH SCH ×4 (01:55→19:52)
[2017-06-19] MEDS: Sulfamethoxazole/Trimethoprim 240 MG in Dextrose 5% In Water 250 ML IVPB SCH ×2 (03:00→14:10)
[2017-06-19 08:11] LABS: BASO % 0.5 % (0.0-2.0); EOS # 0.3 K/uL (0.0-0.7); EOS % 5.5 % (0.0-4.0); HEMATOCRIT 31.5 % (34.0-47.0); LYMPH # 1.4 K/uL (1.0-4.3); LYMPH % 25.9 % (20.0-40.0); MEAN CELL VOLUME 79.7 fL (81.0-99.0); MEAN CORPUSCULAR HGB CONC 33.9 g/dL (33.0-37.0); MEAN PLATELET VOLUME 8.6 fL (7.2-11.7); MONO # 0.3 K/uL (0.0-0.8); MONO % 4.7 % (0.0-10.0); NRBC % 0.1 % (0.0-2.0); RED CELL DISTRIBUTION WIDTH 15.3 % (11.5-14.5); WHITE BLOOD COUNT 5.5 K/uL (4.8-10.8)
[2017-06-19 08:19] LABS: CHLORIDE 104 mmol/L (98-107); POTASSIUM 4.1 mmol/L (3.6-5.2); SODIUM 137 mmol/L (132-148)
[2017-06-19 08:21] LABS: ALB/GLOB RATIO 0.9 (1.0-2.1); AST/SGOT 83 U/L (14-36); BILIRUBIN,DIRECT 0.3 mg/dL (0.0-0.4); BILIRUBIN,TOTAL 0.4 mg/dL (0.2-1.3); CARBON DIOXIDE 24 mmol/L (22-30); GFR AFRICAN-AMERICAN > 60; TOTAL PROTEIN 7.5 g/dL (6.3-8.3)
[2017-06-19 08:22] LABS: ALKALINE PHOSPHATASE 284 U/L (38-126); ALT/SGPT 116 U/L (9-52); BLOOD UREA NITROGEN 14 mg/dL (7-17); CALCIUM 9.1 mg/dl (8.6-10.4); GLUCOSE,RANDOM 83 mg/dL (65-105)
--- NOTE | 2017-06-19 09:23 | HP ---
HISTORY OF PRESENT ILLNESS: This is a 51-year-old female with history of HIV, on antiretroviral medications. The patient presented to my office on the day of admission with symptoms of headache that has been intermittent for 2 weeks prior to this admission. The patient also had respiratory symptoms in the form of cough and expectoration. The patient was treated with Augmentin 1 week prior to this admission, but after partial improvement, the patient relapsed symptoms again. The patient was admitted to medical floor for further management after both Neurology and ID were consulted. REVIEW OF SYSTEMS: Other review of system is negative. ALLERGIES: THE PATIENT IS ALLERGIC TO ORANGE, RISPERIDONE AND TOMATO. SOCIAL HISTORY: No history of smoking, EtOH or substance abuse. HOME MEDICATIONS: Include ibuprofen 600 mg three times a day, hydroxyzine 25 mg twice a day, Haldol 2 mg daily, Lexapro 20 mg daily, Truvada 200 mg/300 mg daily, Tivicay 50 mg daily, and Cogentin 0.5 mg daily. PAST MEDICAL HISTORY: HIV positive, on antiretroviral medications. FAMILY HISTORY: Noncontributory. PHYSICAL EXAMINATION: VITAL SIGNS: Blood pressure 96/60, temperature 98.0, respiratory rate 20, and pulse 72. HEENT: Pupils are equal and reactive to light. Normal-appearing mucosa of the conjunctivae, oropharynx, and nasal membrane mucosa. NECK: Supple. No JVD. No carotid bruits. No lymph node. No thyromegaly. CHEST AND LUNGS: Bilateral symmetrical expansion. Good air exchange. No rales. No rhonchi. CARDIOVASCULAR SYSTEM: PMI not localized. S1 and S2. No additional sounds. ABDOMEN: Normoactive bowel sounds. No tenderness. No organomegaly. No masses. EXTREMITIES: No cyanosis. No clubbing. No edema. CENTRAL NERVOUS SYSTEM: Alert, awake, and oriented x3. No neurological deficits could be appreciated. DIAGNOSTIC DATA: An MRI was done that did not show significant specific abnormality and also chest x-ray was done that did not show any acute infiltration. ASSESSMENT: Human immunodeficiency virus positive with unknown CD4 count, rule out opportunistic infection. PLAN: Follow Neurology and ID recommendations. Continue current medications including Bactrim, Rocephin and acyclovir that were added by Infectious Disease development consultant. [facility] MD [facility] # [id number]
[2017-06-19] MEDS: Emtricitabine-Tenofovir 200 mg-300 mg Tab PO SCH (10:10)
[2017-06-19] MEDS: Acyclovir 500 MG in Sodium Chloride 0.9% 100 ML IV SCH ×2 (11:42→19:53)
--- NOTE | 2017-06-19 18:02 | CP.PCM.PN ---
Subjective - Date & Time of Evaluation Date of Evaluation: 06/19/17 Time of Evaluation: 18:02 - Subjective Subjective: CHIEF COMPLAINTS TODAY : AFEBRILE VSS BP 96/60 Oxygen saturation 98% on room air Denies any headaches Feels better. +ve cough ROS HEENT : N. Resp : no SOB wheezing, +ve cough Cardio : No CP, PND orthopnea GI : No abd. Pain, n/v [employer] : No headache , focal deficit. Musculoskel : N Ext. : Pedal pulses intact, no edema or calf pain Derm : N Psych : N. PE. Pt. is alert awake in no distress. V.S As noted in the chart Head ,ear nose,throat and eyes : Normal. HERPES SIMPLEX LESIONS UPPER LIP. Neck : Supple with normal carotids. Lungs: Clear air entry. Heart : S1 & S2 normal . . No murmur. S4 + Abd : Soft non tender with normal bowel sounds. Neuro : Moves all ext. with no localized deficit. Ext : No edema with intact pulses. Neg. calf tenderness Derm : No rashes or decubitus ulcer. Radiology/Labs . BLOOD CULTURES NEGATIVE TO DATE LFTS INCREASING TRANSAMINITIS, ALKALINE PHOSPHATASE 284 HEPATITIS SCREEN -VE A,B AND C LDH N NORMAL PRO CALCITONIN -NORMAL Asssessment : HEADACHES? SINUSITIS (BYMRI ) BRONCHITIS. HIV+VE TRANSAMINITIS? DRUGS. Plan DC iv CEFTRIAXONE. START iv CEFEPIME 1 G EVERY 24 HOURLY 06/19/17 DECREASE iv bACTRIM 160 MG EVERY 12 HOURLY-2 dECREASE iv ACYCLOVIR 500 EVERY 12 HOURLY.-2 fOLLOW-UP SPUTUM gRAM STAIN AND CULTURE. fOLLOW-UP lftS. . Objective - Vital Signs/Intake and Output Vital Signs (last 24 hours): Temp Pulse Resp BP Pulse Ox 7.8 F L 80 20 112/72 99 06/19/17 15:44 06/19/17 15:44 06/19/17 15:44 06/19/17 15:44 06/19/17 15:44 - Medications Medications: Current Medications Albuterol (Ventolin Hfa 90 Mcg/Actuation (8 G)) 2 puff IH RQ6 [facility] Last Admin: 06/19/17 13:40 Dose: 2 puff Benztropine Mesylate (Cogentin) 0.5 mg PO DAILY [facility] Last Admin: 06/19/17 10:10 Dose: 0.5 mg Dolutegravir Sodium (Tivicay) 50 mg PO DAILY [facility] Last Admin: 06/19/17 10:11 Dose: 50 mg Emtricitabine/Tenofovir (Truvada 200 Mg-300 Mg) 1 tab PO DAILY [facility] Last Admin: 06/19/17 10:10 Dose: 1 tab Ergocalciferol (Drisdol 50,000 Intl Units Cap) 1 cap PO QWK [facility] Escitalopram Oxalate (Lexapro) 20 mg PO DAILY [facility] Last Admin: 06/19/17 10:10 Dose: 20 mg Haloperidol (Haldol) 2 mg PO DAILY [facility] Last Admin: 06/19/17 10:11 Dose: 2 mg Hydroxyzine HCl (Atarax) 25 mg PO BID [facility] Last Admin: 06/19/17 10:11 Dose: 25 mg Trimethoprim/Sulfamethoxazole (160 mg/ Dextrose) 250 mls @ 250 mls/hr IVPB Q12H [facility] Acyclovir 500 mg/ Sodium (Chloride) 100 mls @ 100 mls/hr IV Q12H [facility] Cefepime HCl 1 gm/ Dextrose 50 mls @ 100 mls/hr IVPB Q24H [facility] - Labs Labs: 06/19/17 07:56 06/19/17 07:56 Assessment and Plan (1) Headache Status: Acute (2) Pneumonia Status: Acute (3) 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
[2017-06-19] MEDS: Sulfamethoxazole/Trimethoprim 160 MG in Dextrose 5% In Water 250 ML IVPB SCH (21:20)
[2017-06-20] MEDS: Albuterol HFA 90 mcg/actuation (8 g) IH SCH ×4 (02:33→19:22)
[2017-06-20] MEDS: Acyclovir 500 MG in Sodium Chloride 0.9% 100 ML IV SCH ×2 (06:48→19:43)
[2017-06-20] MEDS: Emtricitabine-Tenofovir 200 mg-300 mg Tab PO SCH (09:51)
[2017-06-20] MEDS: Sulfamethoxazole/Trimethoprim 160 MG in Dextrose 5% In Water 250 ML IVPB SCH ×2 (09:51→20:57)
[2017-06-20 11:11] LABS: BASO % 0.4 % (0.0-2.0); EOS # 0.1 K/uL (0.0-0.7); EOS % 1.5 % (0.0-4.0); HEMATOCRIT 33.9 % (34.0-47.0); LYMPH # 1.8 K/uL (1.0-4.3); LYMPH % 33.4 % (20.0-40.0); MEAN CELL VOLUME 79.7 fL (81.0-99.0); MEAN CORPUSCULAR HEMOGLOBIN 26.6 pg (27.0-31.0); MEAN CORPUSCULAR HGB CONC 33.4 g/dL (33.0-37.0); MEAN PLATELET VOLUME 8.4 fL (7.2-11.7); MONO # 0.2 K/uL (0.0-0.8); MONO % 3.6 % (0.0-10.0); NRBC % 0.1 % (0.0-2.0); RED CELL DISTRIBUTION WIDTH 14.9 % (11.5-14.5); WHITE BLOOD COUNT 5.4 K/uL (4.8-10.8)
[2017-06-20 11:20] LABS: CHLORIDE 99 mmol/L (98-107); SODIUM 135 mmol/L (132-148)
[2017-06-20 11:21] LABS: POTASSIUM 3.9 mmol/L (3.6-5.2)
[2017-06-20 11:23] LABS: ALB/GLOB RATIO 1.1 (1.0-2.1); AST/SGOT 56 U/L (14-36); BILIRUBIN,DIRECT 0.4 mg/dL (0.0-0.4); BILIRUBIN,TOTAL 0.5 mg/dL (0.2-1.3); BLOOD UREA NITROGEN 14 mg/dL (7-17); CARBON DIOXIDE 21 mmol/L (22-30); GFR AFRICAN-AMERICAN > 60; GLUCOSE,RANDOM 134 mg/dL (65-105)
[2017-06-20 11:24] LABS: ALKALINE PHOSPHATASE 294 U/L (38-126); ALT/SGPT 101 U/L (9-52); CALCIUM 9.1 mg/dl (8.6-10.4)
[2017-06-20] MEDS: Cefepime IV 1 gm in Dextrose 1 GM/50 ML BAG IVPB SCH (12:47)
--- NOTE | 2017-06-20 18:44 | CP.PCM.PN ---
Subjective - Date & Time of Evaluation Date of Evaluation: 06/20/17 Time of Evaluation: 18:44 - Subjective Subjective: CHIEF COMPLAINTS TODAY : AFEBRILE VSS Denies any headaches Feels better. INTERMITTENT COUGH ROS HEENT : N. Resp : no SOB wheezing, +ve cough Cardio : No CP, PND orthopnea GI : No abd. Pain, n/v [employer] : No headache , focal deficit. Musculoskel : N Ext. : Pedal pulses intact, no edema or calf pain Derm : N Psych : N. PE. Pt. is alert awake in no distress. V.S As noted in the chart Head ,ear nose,throat and eyes : Normal. HERPES SIMPLEX LESIONS UPPER LIP IMPROVING Neck : Supple with normal carotids. Lungs: Clear air entry. Heart : S1 & S2 normal . . No murmur. S4 + Abd : Soft non tender with normal bowel sounds. Neuro : Moves all ext. with no localized deficit. Ext : No edema with intact pulses. Neg. calf tenderness Derm : No rashes or decubitus ulcer. Radiology/Labs . BLOOD CULTURES NEGATIVE TO DATE LFTS -improving HEPATITIS SCREEN -VE A,B AND C LDH N NORMAL. esr 60 PRO CALCITONIN -NORMAL SPUTUM - CULTURE N Alex MRSA SCREEN NEGATIVE d-dimer <200 CD4 HELPER CELLS 247cells/mcl Asssessment : HEADACHES? CORDOVA-SINUSITIS (BYMRI ) DOUBT MENINGITIS NO MENINGEAL SIGNS & SYMPTOMATIC IMPROVEMENT. BRONCHITIS. HIV+VE TRANSAMINITIS? DRUGS. Plan ON iv CEFEPIME 1 G EVERY 24 HOURLY 06/19/17 DC IV ACYLOVIR in AM DC IV BACTRIM IN AM PO BACTRIM 1SS PO BID X 5 DAYS STARTING AM. PO ACYCLOVIR 400MG PO TID X 5 DAYS STARTING AM. DC IV CEFIPIME IN AM. START PO AVELOX 400MG ONCE DAILY W FOOD X 10 DAYS FOR SINUSITIS. DC ISOLATION. CONTINUE HAART RX BEFORE. VL -PENDING ENT EVAL OPD FOR SINUSITUS IF SYMPTOMS PERSIST. WILL DISCUSS WITH PMD, . Objective - Vital Signs/Intake and Output Vital Signs (last 24 hours): Temp Pulse Resp BP Pulse Ox 97.5 F L 86 20 102/68 96 06/20/17 16:00 06/20/17 16:00 06/20/17 16:00 06/20/17 16:00 06/20/17 16:00 Intake and Output: 06/20/17 06/20/17 06:59 18:59 Intake Total 830 Balance 830 - Medications Medications: Current Medications Albuterol (Ventolin Hfa 90 Mcg/Actuation (8 G)) 2 puff IH RQ6 [facility] Last Admin: 06/20/17 13:22 Dose: 2 puff Benztropine Mesylate (Cogentin) 0.5 mg PO DAILY [facility] Last Admin: 06/20/17 09:51 Dose: 0.5 mg Dolutegravir Sodium (Tivicay) 50 mg PO DAILY [facility] Last Admin: 06/20/17 09:50 Dose: 50 mg Emtricitabine/Tenofovir (Truvada 200 Mg-300 Mg) 1 tab PO DAILY [facility] Last Admin: 06/20/17 09:51 Dose: 1 tab Ergocalciferol (Drisdol 50,000 Intl Units Cap) 1 cap PO QWK [facility] Escitalopram Oxalate (Lexapro) 20 mg PO DAILY [facility] Last Admin: 06/20/17 09:51 Dose: Not Given Haloperidol (Haldol) 2 mg PO DAILY [facility] Last Admin: 06/20/17 09:50 Dose: Not Given Hydroxyzine HCl (Atarax) 25 mg PO BID [facility] Last Admin: 06/20/17 17:53 Dose: 25 mg Trimethoprim/Sulfamethoxazole (160 mg/ Dextrose) 250 mls @ 250 mls/hr IVPB Q12H [facility] Last Admin: 06/20/17 09:51 Dose: 250 mls/hr Acyclovir 500 mg/ Sodium (Chloride) 100 mls @ 100 mls/hr IV Q12H [facility] Last Admin: 06/20/17 06:48 Dose: 100 mls/hr Cefepime HCl (Maxipime Iv 1 Gm Premix) 1 gm in 50 mls @ 100 mls/hr IVPB Q24H [facility] Last Admin: 06/20/17 12:47 Dose: 100 mls/hr Ondansetron HCl (Zofran Inj) 4 mg IVP Q6H PRN PRN Reason: nausea/vomiting Last Admin: 06/19/17 22:26 Dose: 4 mg - Labs Labs: 06/20/17 11:04 06/20/17 11:04 Assessment and Plan (1) Headache Status: Acute (2) Pneumonia Status: Acute (3) 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
[2017-06-21] MEDS: Albuterol HFA 90 mcg/actuation (8 g) IH SCH ×4 (01:39→19:20)
[2017-06-21] MEDS: Acyclovir 500 MG in Sodium Chloride 0.9% 100 ML IV SCH ×2 (06:18→19:09)
[2017-06-21] MEDS: Sulfamethoxazole/Trimethoprim 160 MG in Dextrose 5% In Water 250 ML IVPB SCH ×2 (09:58→20:03)
[2017-06-21] MEDS: Emtricitabine-Tenofovir 200 mg-300 mg Tab PO SCH (09:58)
[2017-06-21] MEDS ORDERED: Amoxicillin-Clav 500-125 mg Tab PO SCH ×2 (10:00→22:45)
[2017-06-21] MEDS: Cefepime IV 1 gm in Dextrose 1 GM/50 ML BAG IVPB SCH (11:49)
--- NOTE | 2017-06-21 15:23 | PN ---
DATE: NEUROLOGICAL PROBLEM: Viral syndrome with headache. SUBJECTIVE: The patient claims that her headache has gone completely. Still mild cough, however, she is improved remarkably as per her statement. Her ID consult has been reviewed and appreciated. PHYSICAL EXAMINATION VITAL SIGNS: Blood pressure of 102/57, mean arterial pressure was 72, respiratory rate of 16, temperature of 97.6, and pulse rate of 65. NECK: Supple. No meningeal signs noted. NEUROLOGIC: Cranial nerves are normal. 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 LABORATORY DATA: Her recent blood workup, WBC of 7.2, hemoglobin of 11.2, hematocrit of 33.9, and platelet of 184. Cryptococcal antigen is negative. DIAGNOSTIC DATA: MRI of the brain reviewed, no acute pathology is noted, nonspecific T2 signal noted. No space occupying lesion or any atrophy related to her primary illness is noted. CONCLUSION: The patient presenting with viral syndrome, been improving with current medication and hydration. There is no clear indication for the spinal tap at present for her. I do not think the patient does have cryptococcal meningitis. PLAN: We will continue the present management. The patient will be followed up closely with you. Mazin Lynn MD
--- NOTE | 2017-06-21 22:36 | CP.PCM.PN ---
Subjective - Date & Time of Evaluation Date of Evaluation: 06/21/17 Time of Evaluation: 22:36 - Subjective Subjective: CHIEF COMPLAINTS TODAY : AFEBRILE VSS Denies any headaches Feels better. INTERMITTENT COUGH ROS HEENT : N. Resp : no SOB wheezing, +ve cough Cardio : No CP, PND orthopnea GI : No abd. Pain, n/v [employer] : No headache , focal deficit. Musculoskel : N Ext. : Pedal pulses intact, no edema or calf pain Derm : N Psych : N. PE. Pt. is alert awake in no distress. V.S As noted in the chart Head ,ear nose,throat and eyes : Normal. HERPES SIMPLEX LESIONS UPPER LIP IMPROVING Neck : Supple with normal carotids. Lungs: Clear air entry. Heart : S1 & S2 normal . . No murmur. S4 + Abd : Soft non tender with normal bowel sounds. Neuro : Moves all ext. with no localized deficit. Ext : No edema with intact pulses. Neg. calf tenderness Derm : No rashes or decubitus ulcer. Radiology/Labs . BLOOD CULTURES NEGATIVE TO DATE LFTS -improving HEPATITIS SCREEN -VE A,B AND C LDH N NORMAL. esr 60 PRO CALCITONIN -NORMAL SPUTUM - CULTURE N Alex MRSA SCREEN NEGATIVE d-dimer <200 CD4 HELPER CELLS 247cells/mcl Asssessment : HEADACHES? CORDOVA-SINUSITIS (BYMRI ) DOUBT MENINGITIS NO MENINGEAL SIGNS & SYMPTOMATIC IMPROVEMENT. BRONCHITIS. HIV+VE TRANSAMINITIS? DRUGS. Plan DC IV ACYLOVIR DC IV BACTRIM PO BACTRIM 1SS PO BID X 5 DAYS STARTING AM. PO ACYCLOVIR 400MG PO TID X 5 DAYS STARTING AM. DC IV CEFIPIME . START PO Augmentin 500mg W FOOD X 10 DAYS FOR SINUSITIS. bacid 1tab po hs as probiotic DC ISOLATION. CONTINUE HAART RX BEFORE. VL -PENDING case discussed with ATTENDING DR ROMERO. Objective - Vital Signs/Intake and Output Vital Signs (last 24 hours): Temp Pulse Resp BP Pulse Ox 97.9 F 83 18 110/68 96 06/21/17 22:00 06/21/17 22:00 06/21/17 22:00 06/21/17 22:00 06/21/17 15:38 Intake and Output: 06/21/17 06/22/17 18:59 06:59 Intake Total 1080 350 Balance 1080 350 - Medications Medications: Current Medications Albuterol (Ventolin Hfa 90 Mcg/Actuation (8 G)) 2 puff IH RQ6 [facility] Last Admin: 06/21/17 19:20 Dose: 2 puff Benztropine Mesylate (Cogentin) 0.5 mg PO DAILY [facility] Last Admin: 06/21/17 09:58 Dose: 0.5 mg Dolutegravir Sodium (Tivicay) 50 mg PO DAILY [facility] Last Admin: 06/21/17 09:58 Dose: 50 mg Emtricitabine/Tenofovir (Truvada 200 Mg-300 Mg) 1 tab PO DAILY [facility] Last Admin: 06/21/17 09:58 Dose: 1 tab Ergocalciferol (Drisdol 50,000 Intl Units Cap) 1 cap PO QWK [facility] Escitalopram Oxalate (Lexapro) 20 mg PO DAILY [facility] Last Admin: 06/21/17 10:07 Dose: Not Given Haloperidol (Haldol) 2 mg PO DAILY [facility] Last Admin: 06/21/17 10:07 Dose: Not Given Hydroxyzine HCl (Atarax) 25 mg PO BID [facility] Last Admin: 06/21/17 17:32 Dose: 25 mg Trimethoprim/Sulfamethoxazole (160 mg/ Dextrose) 250 mls @ 250 mls/hr IVPB Q12H [facility] Last Admin: 06/21/17 20:03 Dose: 250 mls/hr Acyclovir 500 mg/ Sodium (Chloride) 100 mls @ 100 mls/hr IV Q12H [facility] Last Admin: 06/21/17 19:09 Dose: 100 mls/hr Cefepime HCl (Maxipime Iv 1 Gm Premix) 1 gm in 50 mls @ 100 mls/hr IVPB Q24H [facility] Last Admin: 06/21/17 11:49 Dose: 100 mls/hr Ondansetron HCl (Zofran Inj) 4 mg IVP Q6H PRN PRN Reason: nausea/vomiting Last Admin: 06/19/17 22:26 Dose: 4 mg - Labs Labs: 06/20/17 11:04 06/20/17 11:04 Assessment and Plan (1) Headache Status: Acute (2) Pneumonia Status: Acute (3) 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
[2017-06-22 01:12] VITALS: RESP 20
[2017-06-22] MEDS: Albuterol HFA 90 mcg/actuation (8 g) IH SCH ×2 (01:13→08:53)
[2017-06-22 07:50] VITALS: BP 98/64; PULSE 73; TEMP 97.8; O2SAT 97
[2017-06-22] MEDS ORDERED: Amoxicillin-Clav 500-125 mg Tab PO SCH (10:00)
[2017-06-22] MEDS ORDERED: Tmp-Smz 400 mg-80 mg SS Tab PO SCH (10:00)
[2017-06-22] MEDS: Emtricitabine-Tenofovir 200 mg-300 mg Tab PO SCH (11:26)
--- NOTE | 2017-06-22 11:53 | CP.PCM.PN ---
Subjective - Date & Time of Evaluation Date of Evaluation: 06/22/17 Time of Evaluation: 11:53 Objective - Vital Signs/Intake and Output Vital Signs (last 24 hours): Temp Pulse Resp BP Pulse Ox 97.8 F 73 20 98/64 L 97 06/22/17 07:46 06/22/17 07:46 06/22/17 07:46 06/22/17 07:46 06/22/17 07:46 Intake and Output: 06/22/17 06/22/17 06:59 18:59 Intake Total 350 Balance 350 - Medications Medications: Current Medications Acyclovir (Zovirax) 400 mg PO TID [facility] Stop: 06/27/17 10:01 Last Admin: 06/22/17 11:27 Dose: 400 mg Albuterol (Ventolin Hfa 90 Mcg/Actuation (8 G)) 2 puff IH RQ6 [facility] Last Admin: 06/22/17 08:53 Dose: 2 puff Amoxicillin/Clavulanate Potassium (Augmentin 500 Mg-125 Mg Tab) 1 tab PO Q8H [facility] Last Admin: 06/22/17 11:40 Dose: 1 tab Benztropine Mesylate (Cogentin) 0.5 mg PO DAILY [facility] Last Admin: 06/22/17 11:28 Dose: Not Given Dolutegravir Sodium (Tivicay) 50 mg PO DAILY [facility] Last Admin: 06/22/17 11:26 Dose: 50 mg Emtricitabine/Tenofovir (Truvada 200 Mg-300 Mg) 1 tab PO DAILY [facility] Last Admin: 06/22/17 11:26 Dose: 1 tab Ergocalciferol (Drisdol 50,000 Intl Units Cap) 1 cap PO QWK [facility] Escitalopram Oxalate (Lexapro) 20 mg PO DAILY [facility] Last Admin: 06/22/17 11:29 Dose: Not Given Haloperidol (Haldol) 2 mg PO DAILY [facility] Last Admin: 06/22/17 11:28 Dose: Not Given Hydroxyzine HCl (Atarax) 25 mg PO BID [facility] Last Admin: 06/22/17 11:27 Dose: 25 mg Ondansetron HCl (Zofran Inj) 4 mg IVP Q6H PRN PRN Reason: nausea/vomiting Last Admin: 06/19/17 22:26 Dose: 4 mg Trimethoprim/Sulfamethoxazole (Bactrim Ss Tab) 1 tab PO BID [facility] Stop: 06/27/17 10:01 Last Admin: 06/22/17 11:27 Dose: 1 tab - Labs Labs: 06/20/17 11:04 06/20/17 11:04 Assessment and Plan (1) Headache Status: Acute (2) Pneumonia Status: Acute (3) 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
--- NOTE | 2017-06-22 13:15 | CP.PCM.PN ---
Subjective - Date & Time of Evaluation Date of Evaluation: 06/22/17 Time of Evaluation: 13:00 - Subjective Subjective: IRRIGATOR GRAVITY FLOW NOTES 51 year old female, whose past medical history includes HIV, is admitted for headache, fever, chills and cough Pt seen today denies any headache , fever, chills, N/V/D, cough improved oob ambulating without any problems MRi- Two punctate long TR hyperintensities identified in the right frontal lobe which do not enhance and the remaining white matter is within normal limits in signal including the corpus callosum. This appearance is nonspecific and is of uncertain clinical significance and origin. There is in fact no abnormal intracranial enhancement. Differs diagnosis this minimal finding varies from hypertension and migraine headaches up to demyelination. 2. Incidental thomas sinusitis with the right frontal sinus least affected. a febrile blood culture- negative sputum culture - negative D/W Dr. Mallorie Chung cleared for discharge home from ID stand point and continue AUGMENTIN, ACYCLOVIR AND BACTRIM X 5 MORE DAYS D/W Dr. Reyna stable for discharge home today and f/u wi Dr. Reyna office in 1 week Discharge plan discussed with patient , who understands and agrees with plan RX given patient instructed to returns to ED if symptoms returns or any other concerning symptoms Objective - Vital Signs/Intake and Output Vital Signs (last 24 hours): Temp Pulse Resp BP Pulse Ox 97.8 F 73 20 98/64 L 97 06/22/17 07:46 06/22/17 07:46 06/22/17 07:46 06/22/17 07:46 06/22/17 07:46 Intake and Output: 06/22/17 06/22/17 06:59 18:59 Intake Total 350 Balance 350 - Medications Medications: Current Medications Acyclovir (Zovirax) 400 mg PO TID [facility] Stop: 06/27/17 10:01 Last Admin: 06/22/17 11:27 Dose: 400 mg Albuterol (Ventolin Hfa 90 Mcg/Actuation (8 G)) 2 puff IH RQ6 [facility] Last Admin: 06/22/17 08:53 Dose: 2 puff Amoxicillin/Clavulanate Potassium (Augmentin 500 Mg-125 Mg Tab) 1 tab PO Q8H [facility] Last Admin: 06/22/17 11:40 Dose: 1 tab Benztropine Mesylate (Cogentin) 0.5 mg PO DAILY [facility] Last Admin: 06/22/17 11:28 Dose: Not Given Dolutegravir Sodium (Tivicay) 50 mg PO DAILY [facility] Last Admin: 06/22/17 11:26 Dose: 50 mg Emtricitabine/Tenofovir (Truvada 200 Mg-300 Mg) 1 tab PO DAILY [facility] Last Admin: 06/22/17 11:26 Dose: 1 tab Ergocalciferol (Drisdol 50,000 Intl Units Cap) 1 cap PO QWK [facility] Escitalopram Oxalate (Lexapro) 20 mg PO DAILY [facility] Last Admin: 06/22/17 11:29 Dose: Not Given Haloperidol (Haldol) 2 mg PO DAILY [facility] Last Admin: 06/22/17 11:28 Dose: Not Given Hydroxyzine HCl (Atarax) 25 mg PO BID [facility] Last Admin: 06/22/17 11:27 Dose: 25 mg Ondansetron HCl (Zofran Inj) 4 mg IVP Q6H PRN PRN Reason: nausea/vomiting Last Admin: 06/19/17 22:26 Dose: 4 mg Trimethoprim/Sulfamethoxazole (Bactrim Ss Tab) 1 tab PO BID [facility] Stop: 06/27/17 10:01 Last Admin: 06/22/17 11:27 Dose: 1 tab - Labs Labs: 06/20/17 11:04 06/20/17 11:04
--- NOTE | 2017-06-23 00:49 | DS ---
REASON FOR ADMISSION: This is a 51 years old female who has HIV positive and admitted for respiratory symptoms and headache. COURSE OF HOSPITALIZATION: The patient was admitted to medical floor and she had an ID consult done by Dr. Donna Chung. The patient was started on IV acyclovir and Rocephin as well as Bactrim. The patient's symptoms remarkably improved. The patient also had neurology consultation done by Dr. Lynn. The patient improved and she has CD4 count more than 200. The patient was discharged home to take Avelox 400 mg once a day for five more days, acyclovir 400 mg three times a day for five more days, and Bactrim single strength one twice a day for five more days. ASSESSMENT: 1. Human immunodeficiency virus positive patient with acute bronchitis. 2. Vital syndrome that responded well to acyclovir. [facility] MD Axel
[2017-06-23 15:35] LABS: TOXOPLASMA IGG AB <7.20 IU/mL; TOXOPLASMA IGM AB <8.00 AU/mL
[2017-06-23 15:37] LABS: VARICELLA-ZOSTER AB (IGM) <=0.90 (<=0.90)
[2017-06-23 15:39] LABS: HERPED VIRUS SOURCE Serum
[2017-06-24] MEDS ORDERED: Ergocalciferol 50,000 Intl Units Cap PO SCH (10:00)
== END 2017-06-22 14:07 | disposition home or self-care (01) | DRG 714 ==
LOC: C.ER 16:14 → C.9E 19:41 → C.5S 21:03 → OBSVTOIN 06-19 17:38
PROVIDERS: ADMIT Internal Medicine; ATTEND Internal Medicine
DX: B20 Human immunodeficiency virus [HIV] disease (principal); R64 Cachexia; J20.9 Acute bronchitis, unspecified; G43.909 Migraine, unspecified, not intractable, without status migrainosus; J32.4 Chronic pansinusitis; K52.9 Noninfective gastroenteritis and colitis, unspecified; R74.0 Nonspecific elevation of levels of transaminase and lactic acid dehydrogenase [LDH]; B00.1 Herpesviral vesicular dermatitis; Z87.01 Personal history of pneumonia (recurrent); Z79.899 Other long term (current) drug therapy

== ENCOUNTER 2017-10-04 07:37 | Emergency (ER) | payer MEDICAID ==
--- NOTE | 2017-10-04 08:05 | C.PDOC ---
History Of Present Illness 52-YEAR-OLD FEMALE, PRESENTS TO THE EMERGENCY DEPARTMENT WITH COMPLAINTS OF FEVER X 3 DAYS. +COUGH NV. NO HI, CP, SOB/JUÁREZ. NO DIARRHEA. COMPLIANT W HIV MEDS , CD4 200. +FLU IMM 05/2017 EXAM MILD DIST NONTOXIC HEENT NEG LUNGS CTA B/L NO W/R/R CV RRR SINUS TACH ABD NEG NEURO INTACT REMAINDER NEG Time Seen by Provider: 10/04/17 07:51 Chief Complaint (Nursing): Fever History Per: Patient History/Exam Limitations: no limitations Onset/Duration Of Symptoms: Days Current Symptoms Are (Timing): Still Present Past Medical History Reviewed: Historical Data, Nursing Documentation, Vital Signs Vital Signs: Last Vital Signs Temp 99.8 F H 10/04/17 11:18 Pulse 88 10/04/17 11:18 Resp 18 10/04/17 11:18 BP 97/59 L 10/04/17 11:18 Pulse Ox 96 10/04/17 11:55 - Medical History PMH: Arthritis, Bronchitis, Depression, Diverticulitis, Gall Bladder Disease, HIV, Pneumonia Surgical History: Cholecystectomy Denies: Appendectomy, CABG, Carotid Endarterectomy, Coronary Stent, Pacemaker , Tonsillectomy Family History: States: Unknown Family Hx, Hypertension - Social History Hx Alcohol Use: No Hx Substance Use: No - Immunization History Hx Tetanus Toxoid Vaccination: No Hx Influenza Vaccination: Yes (05/2017) Hx Pneumococcal Vaccination: Yes (05/2017) Review Of Systems Except As Marked, All Systems Reviewed And Found Negative. Constitutional: Positive for: Fever Cardiovascular: Negative for: Chest Pain Respiratory: Positive for: Cough. Negative for: Shortness of Breath, SOB with Excertion Gastrointestinal: Positive for: Nausea, Vomiting Neurological: Negative for: Weakness, Numbness, Headache Physical Exam - Physical Exam Appears: Non-toxic, No Acute Distress (MILD) Skin: Warm, Dry, No Rash Head: Atraumatic, Normacephalic Eye(s): bilateral: Normal Inspection, PERRL, EOMI Nose: Normal Oral Mucosa: Moist Lips: Normal Appearing Neck: Normal ROM Chest: Symmetrical Cardiovascular: Rhythm Regular (SINUS TACH), No Murmur Respiratory: Normal Breath Sounds, No Accessory Muscle Use Gastrointestinal/Abdominal: Soft, No Tenderness Extremity: Normal ROM Neurological/Psych: Oriented x3, Normal Speech ED Course And Treatment - Laboratory Results Result Diagrams: 10/04/17 08:44 10/04/17 08:44 O2 Sat by Pulse Oximetry: 96 (ON RA) Pulse Ox Interpretation: Normal Progress - Re-Evaluation Re-evaluation Note: 10/04/17 09:35 NAD APPEARS COMFORTABLE 10/04/17 11:53 FEELS BETTER NONTOXIC VSS - Data Reviewed Data Reviewed: Lab, Diagnostic imaging, Old records Disposition Counseled Patient/Family Regarding: Studies Performed, Diagnosis, Need For Followup, Rx Given - Disposition Referrals: Lucy Reyna MD [Staff Provider] - Disposition: HOME/ ROUTINE Disposition Time: 11:54 Condition: IMPROVED Prescriptions: Ondansetron [Zofran Odt] 4 mg PO TID PRN #9 odt PRN Reason: Nausea/Vomiting Oseltamivir [Tamiflu] 75 mg PO BID #9 cap Instructions: Influenza (ED) Forms: [facility] (Burmese), Work Excuse Print Language: BELARUSIAN - Clinical Impression Clinical Impression: Influenza - Scribe Statement The provider has reviewed the documentation as recorded by the Scribe (Shruti Araujo) All medical record entries made by the Scribe were at my direction and personally dictated by me. I have reviewed the chart and agree that the record accurately reflects my personal performance of the history, physical exam, medical decision making, and the department course for this patient. I have also personally directed, reviewed, and agree with the discharge instructions and disposition.
[2017-10-04] MEDS ORDERED: Lactated Ringer's 2,000 ML ONE (08:15)
[2017-10-04 08:45] LABS: VENOUS BLOOD GAS PCO2 40 mmHg (40-60); VENOUS BLOOD GAS PO2 22 mm/Hg (30-55)
[2017-10-04 08:54] LABS: BASO % 0.7 % (0.0-2.0); EOS # 0.5 K/uL (0.0-0.7); EOS % 10.1 % (0.0-4.0); HEMOGLOBIN 10.2 g/dL (11.0-16.0); LYMPH # 1.1 K/uL (1.0-4.3); LYMPH % 21.3 % (20.0-40.0); MEAN CELL VOLUME 78.4 fL (81.0-99.0); MEAN CORPUSCULAR HGB CONC 33.2 g/dL (33.0-37.0); MEAN PLATELET VOLUME 8.9 fL (7.2-11.7); MONO # 0.2 K/uL (0.0-0.8); MONO % 4.1 % (0.0-10.0); NEUT # 3.3 K/uL (1.8-7.0); NEUT % 63.8 % (50.0-75.0); NRBC % 0.2 % (0.0-2.0); RBC 3.91 Mil/uL (3.80-5.20); RED CELL DISTRIBUTION WIDTH 17.2 % (11.5-14.5); WHITE BLOOD COUNT 5.1 K/uL (4.8-10.8)
[2017-10-04 08:55] LABS: INR 1.1; PROTHROMBIN TIME 12.2 SECONDS (9.7-12.2)
[2017-10-04 09:10] LABS: ALT/SGPT 28 U/L (9-52); AST/SGOT 27 U/L (14-36); BLOOD UREA NITROGEN 14 mg/dL (7-17); CALCIUM 8.4 mg/dl (8.6-10.4); GFR AFRICAN-AMERICAN > 60; GFR NON-AFRICAN AMERICAN > 60; MAGNESIUM 1.7 mg/dL (1.6-2.3)
[2017-10-04 09:45] VITALS: RESP 18
--- NOTE | 2017-10-04 10:09 | RAD ---
HISTORY: FEVER, HIV COMPARISON: 06/17/2017 TECHNIQUE: Chest PA and lateral FINDINGS: LUNGS: No active pulmonary disease. PLEURA: No significant pleural effusion identified. No pneumothorax apparent. CARDIOVASCULAR: Normal. OSSEOUS STRUCTURES: No significant abnormalities. VISUALIZED UPPER ABDOMEN: Normal. OTHER FINDINGS: None. IMPRESSION: No active disease.
[2017-10-04 11:19] VITALS: BP 97/59; PULSE 88; TEMP 99.8
[2017-10-04 11:55] VITALS: O2SAT 96
== END 2017-10-04 12:20 | disposition home or self-care (01) ==
LOC: C.ER 07:37
DX: J11.1 Influenza due to unidentified influenza virus with other respiratory manifestations (principal)
CPT/HCPCS: 71046; 80053; 82803; 83735; 84100; 85025; 85610; 85730; 87804; 96361; 96374; 99285; J1885; J7120

== ENCOUNTER 2017-12-24 07:58 | Day surgery (SDC) | payer MEDICAID ==
[2017-12-24 08:35] VITALS: BMI 23.4
[2017-12-24] MEDS ORDERED: Propofol 10 mg/ml Inj (20 ML) ONE ×3 (11:30→11:53)
[2017-12-24] MEDS ORDERED: Lidocaine Hydrochloride 5 ML INJ ONE (11:30)
[2017-12-24] MEDS ORDERED: Midazolam 2 MG/2 ML VIAL ONE (11:34)
[2017-12-24 12:20] VITALS: TEMP 99.6
[2017-12-24 12:48] VITALS: PULSE 79
[2017-12-24 12:52] VITALS: BP 115/92; RESP 18; O2SAT 98
== END 2017-12-24 12:50 | disposition home or self-care (01) ==
LOC: C.ENDO 07:58
PROVIDERS: ATTEND Internal Medicine Gastroenterology
DX: Z12.11 Encounter for screening for malignant neoplasm of colon (principal); R10.13 Epigastric pain; K22.10 Ulcer of esophagus without bleeding; K44.9 Diaphragmatic hernia without obstruction or gangrene; K64.8 Other hemorrhoids
CPT/HCPCS: 43239; 45378; 88305; J2250; J2704

== ENCOUNTER 2018-03-29 09:45 | Inpatient (IN) | payer MEDICAID ==
[2018-03-29 09:45] VITALS: BMI 23.4
[2018-03-29] MEDS ORDERED: Sodium Chloride 0.9% 1,000 ML IV ONE ×3 (10:10→13:32)
--- NOTE | 2018-03-29 10:17 | C.PDOC ---
History Of Present Illness 52 yo female w/PMhx of HIV(CD4 more than 200), major depressive ds, come in for evaluation of fever, malaise, bodyaches gradually developed since yesterday associated with dry cough, Left sided chest pain. Pt reports, chest pain is localized over left anterior chest wall, reproducible, worse with movement. Otherwise, pt denies headache, dizziness, lethargy, drooling or sore throat, neck pain, rash, SOB, dyspnea, wheezing, palpitation, diaphoresis, abd. pain, N/ V/D, UTi sx, denies recent travel or known sick contact. AT the time of evaluation, pt is AAO#3, appears in pain. HPI: Influenza Time Seen by Provider: 03/29/18 10:02 Chief Complaint: Flu-like Symptoms Past Medical History Vital Signs: Last Vital Signs Temp 101.6 F H 03/29/18 09:53 Pulse 109 H 03/29/18 09:53 Resp 18 03/29/18 09:53 BP 87/53 L 03/29/18 09:53 Pulse Ox 97 03/29/18 09:53 - Medical History PMH: Arthritis, Bronchitis, Depression, Diverticulitis, Gall Bladder Disease, HIV, Pneumonia Denies: Anemia, Anxiety, Asthma, Atrial Fibrillation, Bipolar Disorder, Cardia Arrhythmia, CHF, COPD, Crohn's Disease, Emphysema, Fractures, Gastritis, HTN, Hypercholesterolemia, Mitral Valve Prolapse, Osteoporosis, Pancreatitis, Paranoia, Peripheral Edema, Post Traumatic Stress Disorder, Pulmonary Embolism, Chronic Kidney Disease, Rheumatoid Arthritis, Schizophrenia, Sickle Cell Disease , Sleep Apnea Surgical History: Cholecystectomy Denies: Appendectomy, CABG, Carotid Endarterectomy, Coronary Stent, Pacemaker , Tonsillectomy Family History: States: Unknown Family Hx, Hypertension - Social History Hx Alcohol Use: No Hx Substance Use: No - Immunization History Hx Tetanus Toxoid Vaccination: No Hx Influenza Vaccination: Yes (05/2017) Hx Pneumococcal Vaccination: Yes (05/2017) Physical Exam - Physical Exam Appears: Well, Non-toxic, No Acute Distress Skin: Normal Color, Warm, Dry, No Rash Head: Normacephalic Eye(s): bilateral: PERRL Ear(s): Bilateral: Normal Nose: No Flaring, No Discharge Oral Mucosa: Moist, No Drooling Throat: No Erythema, No Exudate, No Drooling, Other (uvula midline, no edema.) Neck: Trachea Midline, Supple Chest: Symmetrical, No Deformity, Tenderness (over anterior left sided chest wall overlying 4-6 intercostal spaces. No skin changes, no palpable deformity.) Cardiovascular: Rhythm Regular, No Murmur, No JVD Respiratory: No Decreased Breath Sounds, No Accessory Muscle Use, No Stridor, No Wheezing Gastrointestinal/Abdominal: Soft, No Tenderness, No Distention, No Guarding Back: No CVA Tenderness Extremity: Normal ROM, No Deformity, No Swelling Neurological/Psych: Oriented x3, Normal Speech - Laboratory Results Result Diagrams: 03/29/18 10:37 03/29/18 10:37 Urine POC: Negative - ECG ECG: Positive for: Interpreted By Me, Viewed By Me Interpretation Of Abn EKG: Sinus tachy@110/min, incomplete RBBB, no acute t wave or ST-T changes. O2 Sat by Pulse Oximetry: 97 Pulse Ox Interpretation: Normal - Progress ED Course And Treament: On re-eval, pt remained slightly improved, hemodynamicaly stable. Non-toxic. Blood work review (+) acute leukocytosis with left shift, lactic acid- normal CXR review with (+) B/L perihilar fullness r/o infiltrate r/o PCP PNA ( pt has hx of HIV). Blood cx pending. Pt was empirically tx for PCP. case discussed with pt's and admission arranged to tele with ID consult . 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
[2018-03-29] MEDS ORDERED: Sodium Chloride 0.9% 1,000 ML ONE (10:33)
[2018-03-29 10:41] LABS: VENOUS BLOOD GAS BASE EXCESS -2.6 mmol/L (0.0-2.0); VENOUS BLOOD GAS PCO2 27 mmHg (40-60); VENOUS BLOOD GAS PO2 45 mm/Hg (30-55); VENOUS BLOOD PH 7.47 (7.32-7.43)
[2018-03-29 10:41] LABS: BASO # 0.1 K/uL (0.0-0.2); HEMOGLOBIN 9.5 g/dL (11.0-16.0); LYMPH # 1.5 K/uL (1.0-4.3); MEAN CORPUSCULAR HEMOGLOBIN 27.1 pg (27.0-31.0); MEAN CORPUSCULAR HGB CONC 33.6 g/dL (33.0-37.0); MONO # 0.6 K/uL (0.0-0.8)
[2018-03-29 10:44] LABS: BASO % 0.4 % (0.0-2.0); EOS % 0.1 % (0.0-4.0); LYMPH % 12.1 % (20.0-40.0); MEAN PLATELET VOLUME 9.3 fL (7.2-11.7); MONO % 4.5 % (0.0-10.0); NEUT # 10.6 K/uL (1.8-7.0); NEUT % 82.9 % (50.0-75.0); RBC 3.5 Mil/uL (3.80-5.20); RED CELL DISTRIBUTION WIDTH 16.9 % (11.5-14.5)
[2018-03-29 10:47] LABS: WHITE BLOOD COUNT 12.8 K/uL (4.8-10.8)
[2018-03-29 10:48] LABS: MEAN CELL VOLUME 80.4 fL (81.0-99.0)
[2018-03-29] MEDS ORDERED: Tmp-Smz 800 mg-160 mg DS Tab PO STA (10:52)
[2018-03-29 10:54] LABS: INR 1.3; PROTHROMBIN TIME 14.1 SECONDS (9.7-12.2)
[2018-03-29 10:57] LABS: ALB/GLOB RATIO 1.2 (1.0-2.1); ALBUMIN 3.8 g/dL (3.5-5.0); ALT/SGPT 23 U/L (9-52); AST/SGOT 18 U/L (14-36); BLOOD UREA NITROGEN 14 mg/dL (7-17); CALCIUM 8.2 mg/dl (8.6-10.4); GFR AFRICAN-AMERICAN > 60; GFR NON-AFRICAN AMERICAN > 60
[2018-03-29] MEDS ORDERED: Clindamycin 600mg/50ml NS 600 MG/50 ML BAG IVPB ONE (11:00)
[2018-03-29] MEDS ORDERED: Magnesium Sulfate 1 gm in D5W 1 GM/100 ML BAG IVPB ONE ×2 (11:16→11:42)
[2018-03-29] MEDS ORDERED: Tmp-Smz 800 mg-160 mg DS Tab ONE (11:19)
[2018-03-29 12:07] LABS: URINE BILIRUBIN NEGATIVE (NEGATIVE); URINE CLARITY Clear (Clear); URINE COLOR Yellow (YELLOW); URINE GLUCOSE (UA) NORMAL (Normal); URINE LEUKOCYTE ESTERASE NEG Leu/uL (Negative); URINE PROTEIN NEGATIVE (NEGATIVE); URINE UROBILINOGEN NORMAL mg/dL (0.2-1.0)
[2018-03-29] MEDS ORDERED: MethylPREDNISolone 40 mg Vial IVP STA (12:19)
[2018-03-29 12:24] LABS: URINE BLOOD NEGATIVE (NEGATIVE)
[2018-03-29 12:36] LABS: BARBITURATES, UR NEGATIVE (NEGATIVE); BENZODIAZEPINES, UR NEGATIVE (NEGATIVE); OPIATES, UR NEGATIVE (NEGATIVE); PHENCYCLIDINE, UR NEGATIVE (NEGATIVE)
[2018-03-29] MEDS ORDERED: MethylPREDNISolone 40 mg Vial ONE (12:47)
--- NOTE | 2018-03-29 13:15 | RAD ---
Date of service: 03/29/2018 HISTORY: Sepsis Patient COMPARISON: Chest radiograph dated 10/04/2017 FINDINGS: LUNGS: No active pulmonary disease. PLEURA: No significant pleural effusion identified, no pneumothorax apparent. CARDIOVASCULAR: Normal. OSSEOUS STRUCTURES: No significant abnormalities. VISUALIZED UPPER ABDOMEN: Normal. OTHER FINDINGS: None. IMPRESSION: No active disease.
--- NOTE | 2018-03-29 13:30 | CP.PCM.CON ---
History of Present Illness - History of Present Illness History of Present Illness: INFECTIOUS DISEASE CONSULT: HPI : 52-year-old female with past medical history off HIV, CD4 more than 200, on Truvada 1 tablet by mouth once a day, TIVICAY 50 mg by mouth once a day daily, with history of major depressive disease, arthritis, history of diverticulitis and previous history of PCPpneumonia, history of migraine headaches who comes in on 03/29/18 with complains off dry cough, left-sided pleuritic chest pain localized over the left anterior chest wall, worse with movement and elevated temperatures. Patient denies history of recent travel or known sick contacts. Patient states she is also having diarrhea which started today while in the hospital. Patient denies any sore throat, neck pain, shortness of breath, wheezing, palpitations or night sweats. Patient denies any previous history or exposure to TB. Patient denies any dysuria, hematuria or abdominal pain. In the ER patient was found to have oxygen saturation of 88% with normal lactate and she was given a dose off Bactrim one double strength by mouth stat with clindamycin 600 mg one dose. Chest x-ray on admission was reported to be negative. Serum LDH also reported to be normal. Infectious disease consultation requested by PMD for evaluation off fevers, and HIV. PMH: Arthritis, Bronchitis, Depression, Diverticulitis, Gall Bladder Disease, HIV, Pneumonia,hx of migraines. Surgical History: Cholecystectomy Denies: Appendectomy, CABG, Carotid Endarterectomy, Coronary Stent, Pacemaker , Tonsillectomy Family History: States: Unknown Family Hx, Hypertension - Social History Hx Alcohol Use: No Hx Substance Use: No - Immunization History Hx Tetanus Toxoid Vaccination: No Hx Influenza Vaccination: Yes (05/2017) Hx Pneumococcal Vaccination: Yes (05/2017) ALLERGY: orange, risperidone, tomato. Review of Systems - Constitutional Constitutional: Chills, Fever, Headache, Lethargy - EENT Eyes: absent: Change in Vision, Spots in Vision Ears: absent: Ear Pain Nose/Mouth/Throat: Dry Mouth. absent: Dysphagia, Odynophagia, Sore Throat, Neck Pain - Cardiovascular Cardiovascular: Chest Pain (left-sided pleuritic chest pain.) - Respiratory Respiratory: Cough (dry.), Pain with Coughing. absent: Hemoptysis - Gastrointestinal Gastrointestinal: Loose Stools. absent: Abdominal Pain, Nausea, Vomiting - Genitourinary Genitourinary: absent: Dysuria, Urinary Urgency, Freq UTI - Reproductive: Female Reproductive:Female: absent: Genital Lesions, Vaginal Discharge - Musculoskeletal Musculoskeletal: Myalgias - Neurological Neurological: Headaches. absent: Sensory Deficit, Tremor - Psychiatric Psychiatric: Depression - Hematologic/Lymphatic Hematologic: As Per HPI. absent: Easy Bleeding, Easy Bruising, Lymphadenopathy Past Patient History - Infectious Disease Hx of Infectious Diseases: None - Past Medical History & Family History Past Medical History?: Yes - Past Social History Smoking Status: Never Smoked - CARDIAC Hx Atrial Fibrillation: No Hx Cardia Arrhythmia: No Hx Congestive Heart Failure: No Hx Hypercholesterolemia: No Hx Hypertension: No Hx Mitral Valve Prolapse: No Hx Pacemaker: No Hx Peripheral Edema: No - PULMONARY Hx Asthma: No Hx Bronchitis: Yes Hx Chronic Obstructive Pulmonary Disease (COPD): No Hx Emphysema: No Hx Pneumonia: Yes Hx Pulmonary Embolism: No Hx Sleep Apnea: No - NEUROLOGICAL Hx Neurological Disorder: No - HEENT Hx HEENT Problems: No - RENAL Hx Chronic Kidney Disease: No - ENDOCRINE/METABOLIC Hx Endocrine Disorders: No - HEMATOLOGICAL/ONCOLOGICAL Hx Anemia: No Hx Human Immunodeficiency Virus (HIV): Yes Hx Sickle Cell Disease: No - INTEGUMENTARY Hx Dermatological Problems: No - MUSCULOSKELETAL/RHEUMATOLOGICAL Hx Arthritis: Yes Hx Fractures: No Hx Osteoporosis: No Hx Rheumatoid Arthritis: No - GASTROINTESTINAL Hx Crohn's Disease: No Hx Diverticulitis: Yes Hx Gall Bladder Disease: Yes Hx Gastritis: No Hx Pancreatitis: No - GENITOURINARY/GYNECOLOGICAL Hx Genitourinary Disorders: No - PSYCHIATRIC Hx Anxiety: No Hx Bipolar Disorder: No Hx Depression: Yes Hx Paranoia: No Hx Post Traumatic Stress Disorder: No Hx Schizophrenia: No Hx Substance Use: No - SURGICAL HISTORY Hx Appendectomy: No Hx Carotid Endarterectomy: No Hx Cholecystectomy: Yes Hx Coronary Artery Bypass Graft: No Hx Coronary Stent: No Hx Tonsillectomy: No - ANESTHESIA Hx Anesthesia: Yes Hx Anesthesia Reactions: No Hx Malignant Hyperthermia: No Meds Allergies/Adverse Reactions: Allergies Allergy/AdvReac Type Severity Reaction Status Date / Time orange Allergy Verified 03/29/18 09:57 risperidone [From Risperdal] Allergy RASH Verified 03/29/18 09:57 tomato Allergy RASH Verified 03/29/18 09:57 Physical Exam - Constitutional Appears: No Acute Distress, Cachectic - Head Exam Head Exam: NORMAL INSPECTION - Eye Exam Eye Exam: EOMI, PERRL - ENT Exam ENT Exam: Normal Oropharynx - Neck Exam Neck exam: Positive for: Normal Inspection. Negative for: Lymphadenopathy, Meningismus - Respiratory Exam Respiratory Exam: Rhonchi (left-sided), NORMAL BREATHING PATTERN - Cardiovascular Exam Cardiovascular Exam: REGULAR RHYTHM, +S1, +S2 - GI/Abdominal Exam GI & Abdominal Exam: Normal Bowel Sounds, Soft - Extremities Exam Extremities exam: Positive for: pedal pulses present. Negative for: calf tenderness, pedal edema - Neurological Exam Neurological exam: Alert, CN II-XII Intact, Normal Gait, Oriented x3, Reflexes Normal - Psychiatric Exam Psychiatric exam: Normal Mood - Skin Skin Exam: Normal Color, Warm Results - Vital Signs Recent Vital Signs: Last Vital Signs Temp 99.8 F H 03/29/18 11:18 Pulse 77 03/29/18 12:33 Resp 20 03/29/18 12:33 BP 91/47 L 03/29/18 12:33 Pulse Ox 99 03/29/18 12:33 - Labs Result Diagrams: 03/29/18 10:37 03/29/18 10:37 Labs: Laboratory Results - last 24 hr 03/29/18 03/29/18 03/29/18 10:35 10:37 10:37 WBC 12.8 H D RBC 3.50 L Hgb 9.5 L Hct 28.2 L MCV 80.4 L D MCH 27.1 MCHC 33.6 RDW 16.9 H Plt Count 123 L D MPV 9.3 Neut % (Auto) 82.9 H Lymph % (Auto) 12.1 L [place] % (Auto) 4.5 Eos % (Auto) 0.1 Baso % (Auto) 0.4 Neut # (Auto) 10.6 H Lymph # (Auto) 1.5 [place] # (Auto) 0.6 Eos # (Auto) 0.0 Baso # (Auto) 0.1 Differential Comment PT 14.1 H INR 1.3 APTT 34 pO2 45 VBG pH 7.47 H VBG pCO2 27 L VBG HCO3 22.5 VBG Total CO2 20.5 L VBG O2 Sat (Calc) 88.0 H VBG Base Excess -2.6 L VBG Potassium 3.5 L Sodium 139.0 Chloride 107.0 Glucose 156 H Lactate 0.8 Potassium Carbon Dioxide Anion Gap BUN Creatinine Est GFR ( Amer) Est GFR (Non-Af Amer) Random Glucose Calcium Magnesium Total Bilirubin AST ALT Alkaline Phosphatase Lactate Dehydrogenase Troponin I Total Protein Albumin Globulin Albumin/Globulin Ratio Venous Blood Potassium 3.5 L Urine Color Urine Clarity Urine pH Ur Specific [place] Urine Protein Urine Glucose (UA) Urine Ketones Urine Blood Urine Nitrate Urine Bilirubin Urine Urobilinogen Ur Leukocyte Esterase Urine WBC (Auto) Urine RBC (Auto) Urine Opiates Screen Urine Methadone Screen Ur Barbiturates Screen Ur Phencyclidine Scrn Ur Amphetamines Screen U Benzodiazepines Scrn U Oth Cocaine Metabols U Cannabinoids Screen Grp A Beta Strep Ag 03/29/18 03/29/18 03/29/18 10:37 10:37 11:48 WBC RBC Hgb Hct MCV MCH MCHC RDW Plt Count MPV Neut % (Auto) Lymph % (Auto) [place] % (Auto) Eos % (Auto) Baso % (Auto) Neut # (Auto) Lymph # (Auto) [place] # (Auto) Eos # (Auto) Baso # (Auto) Differential Comment PT INR APTT pO2 VBG pH VBG pCO2 VBG HCO3 VBG Total CO2 VBG O2 Sat (Calc) VBG Base Excess VBG Potassium Sodium 139 Chloride 104 Glucose Lactate Potassium 3.6 Carbon Dioxide 23 Anion Gap 16 BUN 14 Creatinine 0.7 Est GFR ( Amer) > 60 Est GFR (Non-Af Amer) > 60 Random Glucose 142 H Calcium 8.2 L Magnesium 1.5 L Total Bilirubin 0.5 AST 18 ALT 23 Alkaline Phosphatase 137 H Lactate Dehydrogenase 384 Troponin I < 0.0120 Total Protein 7.1 Albumin 3.8 Globulin 3.2 Albumin/Globulin Ratio 1.2 Venous Blood Potassium Urine Color Urine Clarity Urine pH Ur Specific [place] Urine Protein Urine Glucose (UA) Urine Ketones Urine Blood Urine Nitrate Urine Bilirubin Urine Urobilinogen Ur Leukocyte Esterase Urine WBC (Auto) Urine RBC (Auto) Urine Opiates Screen Urine Methadone Screen Ur Barbiturates Screen Ur Phencyclidine Scrn Ur Amphetamines Screen U Benzodiazepines Scrn U Oth Cocaine Metabols U Cannabinoids Screen Grp A Beta Strep Ag Negative 03/29/18 03/29/18 11:54 11:54 WBC RBC Hgb Hct MCV MCH MCHC RDW Plt Count MPV Neut % (Auto) Lymph % (Auto) [place] % (Auto) Eos % (Auto) Baso % (Auto) Neut # (Auto) Lymph # (Auto) [place] # (Auto) Eos # (Auto) Baso # (Auto) Differential Comment PT INR APTT pO2 VBG pH VBG pCO2 VBG HCO3 VBG Total CO2 VBG O2 Sat (Calc) VBG Base Excess VBG Potassium Sodium Chloride Glucose Lactate Potassium Carbon Dioxide Anion Gap BUN Creatinine Est GFR ( Amer) Est GFR (Non-Af Amer) Random Glucose Calcium Magnesium Total Bilirubin AST ALT Alkaline Phosphatase Lactate Dehydrogenase Troponin I Total Protein Albumin Globulin Albumin/Globulin Ratio Venous Blood Potassium Urine Color Yellow Urine Clarity Clear Urine pH 5.0 Ur Specific [place] 1.019 Urine Protein Negative Urine Glucose (UA) Normal Urine Ketones Negative Urine Blood Negative Urine Nitrate Negative Urine Bilirubin Negative Urine Urobilinogen Normal Ur Leukocyte Esterase Neg Urine WBC (Auto) 1 Urine RBC (Auto) 1 Urine Opiates Screen Negative Urine Methadone Screen Negative Ur Barbiturates Screen Negative Ur Phencyclidine Scrn Negative Ur Amphetamines Screen Negative U Benzodiazepines Scrn Negative U Oth Cocaine Metabols Negative U Cannabinoids Screen Negative Grp A Beta Strep Ag - Imaging and Cardiology Chest x-ray Status: Report reviewed by me (no active disease.) Assessment & Plan (1) Fever Status: Acute (2) Pneumonia Status: Acute (3) Gastroenteritis Status: Acute (4) 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 SPUTUM CULTURE. ESR. CRP HIV-1 RNA PCR quantitative levels T lymphocyte subset studies. D. DIMER. PRO CALCITONIN START iv CEFTRIAXONE 1 G ONCE A DAY DAILY. 03/29/18 CONTINUE IV ZITHROMAX 500MG IVPB Q 25HRLY. 03/29/18 START iv BACTRIM 240 MG TMP/SMX iv PIGGYBACK EVERY 12 [address] 03/29/18 CT CHEST W/IV CONTRAST R/O PNEUMONIA /PE PROTOCOL DIARRHOEA W/U - CHECK STOOLS FOR C.DIFFICILE TOXIN. STOOLS FOR CULTURE/LEUKOCYTES ENTERIC PRECAUTIONS. WILL FOLLOW ALONG WITH YOU AND MAKE RECOMMENDATIONS NEEDED.
[2018-03-29 13:32] LABS: VENOUS BLOOD GAS BASE EXCESS -4.4 mmol/L (0.0-2.0); VENOUS BLOOD GAS PCO2 35 mmHg (40-60); VENOUS BLOOD GAS PO2 39 mm/Hg (30-55); VENOUS BLOOD PH 7.37 (7.32-7.43)
[2018-03-29 17:45] LABS: LEGIONELLA AG URINE NEGATIVE (NEGATIVE)
[2018-03-29] MEDS ORDERED: HYDROXYZINE PAMOATE 25 MG PO SCH (18:00)
[2018-03-29] MEDS: Albuterol HFA 90 mcg/actuation (8 g) IH SCH (20:41)
[2018-03-29] MEDS: Albuterol-Ipratrop 3 mg / 0.5 (3 ml) UD INH SCH (20:41)
[2018-03-29] MEDS: Sulfamethoxazole/Trimethoprim 240 MG in Dextrose 5% In Water 250 ML IVPB SCH (21:32)
[2018-03-29 22:33] LABS: MYCOPLASMA PNEUMONIAE IGM NEGATIVE (NEGATIVE)
[2018-03-30] MEDS: Albuterol-Ipratrop 3 mg / 0.5 (3 ml) UD INH SCH ×4 (01:34→20:20)
[2018-03-30] MEDS: Albuterol HFA 90 mcg/actuation (8 g) IH SCH ×4 (01:35→22:38)
--- NOTE | 2018-03-30 03:58 | HP ---
HISTORY OF PRESENT ILLNESS: This is a 52-year-old female with history of HIV disease, compliant to antiretroviral medications. The patient stated that not she is not sure of her CD4 count. The patient has been followed by Dr. Alva in [facility]. The patient presented with one day history of fever, malaise, as well as left-sided chest pain. The patient's symptoms were associated with dry cough. Pain has been increasing with the breathing and it is worse with breathing. The patient denied to have any productive cough. No history of dizziness, sore throat, neck pain. Other, review of system is negative. ALLERGIES: POSITIVE FOR RISPERIDONE, TOMATO, AND ORANGE. MEDICATIONS: Reviewed as per MAR. SOCIAL HISTORY: No history of smoking, EtOH, or substance abuse. FAMILY HISTORY: Not contributory. PAST MEDICAL HISTORY: As above. PHYSICAL EXAMINATION: GENERAL: The patient is in bed, comfortable, not in any cardiopulmonary distress but in mild distress due to the left side chest pain. VITAL SIGNS: Fever was 101.6 that decreased to 98.5, blood pressure 94/60, respiratory rate 20, and pulse 70. HEENT: Pupils equal and reactive to light. Normal-appearing mucosa of the conjunctivae, oropharynx, and nasal membrane mucosa. NECK: Supple. No JVD. No carotid bruit. No lymph node. No thyromegaly. CHEST AND LUNGS: Bilateral symmetrical expansion. Good air exchange. No rales, no rhonchi. CARDIOVASCULAR SYSTEM: PMI not localized. S1, S2. No additional sounds. ABDOMEN: Normoactive bowel sounds. No tenderness. No organomegaly. No masses. EXTREMITIES: No cyanosis, no clubbing, no edema. 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 No neurological deficit could be appreciated. ASSESSMENT: 1. Fever with leukocytosis and left-sided chest pain with dry cough, likely secondary to clinically community-acquired pneumonia. 2. Human immunodeficiency virus disease, on antiretroviral medications. Continue current medications, and Infectious Disease consult; and we will follow the recommendations. We will start the patient on Rocephin and azithromycin. Lucy Reyna MD
[2018-03-30] MEDS ORDERED: Iodixanol 320 MG/ML 100 ML BOTTLE IV ONE (08:01)
[2018-03-30] MEDS ORDERED: Azithromycin 500 MG in Sodium Chloride 0.9% 250 ML IVPB SCH (10:00)
[2018-03-30] MEDS: Emtricitabine-Tenofovir 200 mg-300 mg Tab PO SCH (10:14)
--- NOTE | 2018-03-30 10:43 | CT ---
Date of service: 03/30/2018 PROCEDURE: CT Chest with contrast (Pulmonary Angiogram) HISTORY: pulmonary embolism protocol COMPARISON: CT chest dated 03/06/2017. TECHNIQUE: Axial computed tomography images were obtained of the chest in the pulmonary arterial phase of enhancement. Coronal and sagittal reformatted images were created and reviewed. Intravenous contrast dose: 100 mL Visipaque 320 Radiation dose: Total exam DLP = 235.6 mGy-cm. This CT exam was performed using one or more of the following dose reduction techniques: Automated exposure control, adjustment of the mA and/or kV according to patient size, and/or use of iterative reconstruction technique. FINDINGS: PULMONARY ARTERIES: Unremarkable. No pulmonary embolism. AORTA: No acute findings. No thoracic aortic aneurysm. LUNGS: Left upper lobe infiltrate along the fissure. Small focus of medial left lower lobe infiltrate. Tree-in-bud opacities in the peripheral right lower lobe. PLEURAL SPACES: Unremarkable. No effusion or pneumothorax. HEART: Unremarkable. No cardiomegaly. No significant pericardial effusion. LYMPH NODES: No lymphadenopathy. BONES, CHEST WALL: Unremarkable. No fracture or destructive lesion OTHER FINDINGS: Small hiatal hernia. Prior cholecystectomy. IMPRESSION: Unremarkable CT pulmonary angiogram. No pulmonary embolus. Left upper lobe infiltrate. Small focus of medial left lower lobe infiltrate. Peripheral right lower lobe tree-in-bud opacities
[2018-03-30] MEDS: Sulfamethoxazole/Trimethoprim 240 MG in Dextrose 5% In Water 250 ML IVPB SCH ×2 (13:07→21:50)
--- NOTE | 2018-03-30 16:53 | CP.PCM.PN ---
Subjective - Date & Time of Evaluation Date of Evaluation: 03/30/18 Time of Evaluation: 16:53 - Subjective Subjective: CHIEF COMPLAINTS TODAY : tmax 99.8 c/o abdominal pain nausea/voniting x4 today +VE DIARRHOEA denies SOB ROS. HEENT : N. Resp : No SOB wheezing, + DRY COUGH Cardio : No CP, PND orthopnea GI : No abd. Pain, n/v PENS AND PENCILS DIPPER : No headache , focal deficit. Musculoskel : N Ext. : Pedal pulses intact, no edema or calf pain Derm : N Psych : N. PE. Pt. is alert awake in no distress. V.S As noted in the chart Head ,ear nose,throat and eyes : Normal. Neck : Supple with normal carotids. Lungs: RHONCHI LT UPPER LUNG POSTERIORLY/AND RT.LL Heart : S1 & S2 normal . . No murmur. S4 + Abd : SOFT+ with normal bowel sounds. Neuro : Moves all ext. with no localized deficit. Ext : No edema with intact pulses. Neg. calf tenderness Derm : No rashes or decubitus ulcer. Radiology/Labs ESR 55 STOOL -C.DIFFICILE -VE LEUKOCYTES. CT CHEST W IV CONTRAST -VE PE TYRELL/LML&RLL INFIL E TREE/BUD APPEARANCE Asssessment : FEVER ETIOLOGY B/L PNEUMONIA ?CAP CS ATYPICAL R/O NTM INFECTION GASTROENTERITIS. HIV+VE . HEADACHES ?HX OF MIGRAINES DEPRESSION Plan : QUANTIFERON GOLD TB TEST SPUTUM FOR AFB DAILY X 3 DAYS ( MORNING SPECIMEN ) BY INDUCING SPUTUM. DC IV AZITHROMAX ?ABDOMINAL PAIN/?QT PROLONGATION WITH HER PSYCHE MEDS. CONTINUE iv CEFTRIAXONE 1 G ONCE A DAY DAILY. 03/29/18 CONTINUE iv BACTRIM 240 MG TMP/SMX iv PIGGYBACK EVERY 12 HOURLY. 03/29/18. ADD IV DOXYCYCLINE 100MG IV [id number] FOR ATYPICAL ORGANISMS 03/30/18 DIARRHOEA W/U IN PROGRESS. CRYPTOCOCCAL AG SERUM CRYPTOSPORIDIOSIS STOOL AG GIARDIA STOOL AG. ENTERIC PRECAUTIONS. Objective - Vital Signs/Intake and Output Vital Signs (last 24 hours): Temp Pulse Resp BP Pulse Ox 98.4 F 80 20 109/63 100 03/30/18 15:00 03/30/18 16:01 03/30/18 15:00 03/30/18 15:00 03/30/18 15:00 Intake and Output: 03/30/18 03/30/18 06:59 18:59 Intake Total 1300 730 Balance 1300 730 - Medications Medications: Current Medications Albuterol (Ventolin Hfa 90 Mcg/Actuation (8 G)) 2 puff IH RQ6 [facility] Last Admin: 03/30/18 13:15 Dose: Not Given Albuterol/Ipratropium (Duoneb 3 Mg/0.5 Mg (3 Ml) Ud) 3 ml INH RQ6 [facility] Last Admin: 03/30/18 13:13 Dose: 3 ml Benztropine Mesylate (Cogentin) 0.5 mg PO DAILY [facility] Last Admin: 03/30/18 10:14 Dose: 0.5 mg Dolutegravir Sodium (Tivicay) 50 mg PO DAILY N[facility]OLAY PRN Reason: Protocol Last Admin: 03/30/18 10:14 Dose: 50 mg Emtricitabine/Tenofovir (Truvada 200 Mg-300 Mg) 1 tab PO DAILY NIKOLAY PRN Reason: Protocol Last Admin: 03/30/18 10:14 Dose: 1 tab Ergocalciferol (Drisdol 50,000 Intl Units Cap) 1 cap PO QWK [facility] Escitalopram Oxalate (Lexapro) 20 mg PO DAILY NIKOLAY Last Admin: 03/30/18 10:14 Dose: 20 mg Folic Acid (Folic Acid) 1 mg PO DAILY N[facility]OLAY Last Admin: 03/30/18 10:14 Dose: 1 mg Haloperidol (Haldol) 2 mg PO DAILY [facility]OLAY Last Admin: 03/30/18 10:14 Dose: 2 mg Hydroxyzine HCl (Atarax) 25 mg PO BID [facility] Last Admin: 03/30/18 10:13 Dose: 25 mg Trimethoprim/Sulfamethoxazole (240 mg/ Dextrose) 250 mls @ 100 mls/hr IVPB Q12H [facility]OLAY PRN Reason: Protocol Last Admin: 03/30/18 13:07 Dose: 100 mls/hr Ceftriaxone Sodium 1 gm/ (Sodium Chloride) 100 mls @ 100 mls/hr IVPB Q24H [facility]IKOLAY PRN Reason: Protocol Last Admin: 03/29/18 18:00 Dose: 100 mls/hr Azithromycin 500 mg/ Sodium (Chloride) 250 mls @ 250 mls/hr IVPB DAILY NIKOLAY PRN Reason: Protocol Last Admin: 03/30/18 10:13 Dose: 250 mls/hr Ibuprofen (Motrin Tab) 600 mg PO DAILY NIKOLAY Last Admin: 03/30/18 10:14 Dose: Not Given Ondansetron HCl (Zofran Inj) 4 mg IVP Q8 PRN PRN Reason: Nausea/Vomiting Last Admin: 03/30/18 13:07 Dose: 4 mg - Labs Labs: 03/29/18 10:37 03/29/18 10:37 PT 14.1 SECONDS (9.7-12.2) H 03/29/18 10:37 INR 1.3 03/29/18 10:37 APTT 34 SECONDS (21-34) 03/29/18 10:37 Assessment and Plan (1) Fever Status: Acute (2) Pneumonia Status: Acute (3) Gastroenteritis Status: Acute (4) 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
--- NOTE | 2018-03-30 17:52 | CARD ---
APPROVED REPORT Date of service: 03/29/2018 EKG Measurement Heart [id number] <Conclusion> Sinus tachycardia Incomplete right bundle branch block Nonspecific ST and T wave abnormality Abnormal ECG
[2018-03-31] MEDS: Albuterol HFA 90 mcg/actuation (8 g) IH SCH ×4 (01:08→22:11)
[2018-03-31] MEDS: Albuterol-Ipratrop 3 mg / 0.5 (3 ml) UD INH SCH ×4 (01:08→19:34)
--- NOTE | 2018-03-31 03:09 | PN ---
DATE: 03/30/2018 DAILY PROGRESS NOTE SUBJECTIVE: The patient is seen today, 03/30/2018. She had three episodes of diarrhea and vomiting. Fever came down. PHYSICAL EXAMINATION: VITAL SIGNS: Temperature 98.3, respiratory rate 18, pulse 76, and blood pressure 117/67. HEENT: Pupils equal and reactive to light. Normal-appearing mucosa of the conjunctivae, oropharynx and nasal membrane mucosa. NECK: Supple. No JVD. No carotid bruit. No lymph node. No thyromegaly. CHEST AND LUNGS: Bilateral symmetrical expansion. Good air exchange. No rales. No rhonchi. CARDIOVASCULAR SYSTEM: PMI not localized. S1, S2. No additional sounds. ABDOMEN: Normoactive bowel sounds. No tenderness. No organomegaly. No masses. EXTREMITIES: No cyanosis, no clubbing, no edema. RECEIVING ASSOCIATE STORE: Alert, awake, oriented x2. No neurological deficit could be appreciated. ASSESSMENT: Community-acquired pneumonia, gastroenteritis, human immunodeficiency virus positive. PLAN: Continue current antibiotics. Follow ID recommendations. IV fluid as needed. Antiemetics, Reglan/Zofran. [facility] MD Axel
[2018-03-31 08:23] LABS: BASO % 0.4 % (0.0-2.0); EOS # 0.1 K/uL (0.0-0.7); EOS % 1.2 % (0.0-4.0); HEMOGLOBIN 9.3 g/dL (11.0-16.0); LYMPH # 1.6 K/uL (1.0-4.3); LYMPH % 25.5 % (20.0-40.0); MEAN CELL VOLUME 81.3 fL (81.0-99.0); MEAN CORPUSCULAR HEMOGLOBIN 27.7 pg (27.0-31.0); MEAN CORPUSCULAR HGB CONC 34.1 g/dL (33.0-37.0); MEAN PLATELET VOLUME 9.1 fL (7.2-11.7); MONO # 0.2 K/uL (0.0-0.8); NEUT # 4.5 K/uL (1.8-7.0); NEUT % 69.9 % (50.0-75.0); RBC 3.34 Mil/uL (3.80-5.20); RED CELL DISTRIBUTION WIDTH 17.1 % (11.5-14.5); WHITE BLOOD COUNT 6.4 K/uL (4.8-10.8)
[2018-03-31 08:45] LABS: ALB/GLOB RATIO 1.2 (1.0-2.1); ALBUMIN 3.4 g/dL (3.5-5.0); ALT/SGPT 34 U/L (9-52); AST/SGOT 15 U/L (14-36); BLOOD UREA NITROGEN 9 mg/dL (7-17); CALCIUM 8.3 mg/dl (8.6-10.4); GFR AFRICAN-AMERICAN > 60; GFR NON-AFRICAN AMERICAN > 60
[2018-03-31] MEDS: Emtricitabine-Tenofovir 200 mg-300 mg Tab PO SCH (11:25)
[2018-03-31] MEDS: Sulfamethoxazole/Trimethoprim 240 MG in Dextrose 5% In Water 250 ML IVPB SCH ×2 (11:25→22:11)
[2018-03-31] MEDS: Belladonna-Phenobarbital PO PRN ×2 (14:32→17:41)
[2018-03-31] MEDS: Aluminum Hydroxide/Magnesium Hydroxide Susp (30 mL) PO PRN (14:33)
[2018-03-31] MEDS: Pantoprazole 40 mg EC Tab PO SCH (17:41)
[2018-03-31 18:00] LABS: % CD4 (T HELPER CELL) 8 Percent (30-61); % CD8 (SUPPRESSOR T CELL) 62 Percent (12-42); ABSOLUTE CD4 CELLS 87 Cells/mcL (490-1740); ABSOLUTE CD8 CELLS 637 Cells/mcL (180-1170); ABSOLUTE LYMPHOCYTES 1029 Cells/mcL (850-3900); HELPER/SUPPRESSOR RATIO 0.14 Ratio (0.86-5.00)
--- NOTE | 2018-03-31 18:21 | CP.PCM.PN ---
Subjective - Date & Time of Evaluation Date of Evaluation: 03/31/18 Time of Evaluation: 18:21 - Subjective Subjective: CHIEF COMPLAINTS TODAY : afebrile c/o abdominal pain +veNAUSEA DIARRHOEA IMPROVING denies SOB ROS. HEENT : N. Resp : No SOB wheezing, + DRY COUGH Cardio : No CP, PND orthopnea GI : No abd. Pain, n/v HOME CARE NURSE : No headache , focal deficit. Musculoskel : N Ext. : Pedal pulses intact, no edema or calf pain Derm : N Psych : N. PE. Pt. is alert awake in no distress. V.S As noted in the chart Head ,ear nose,throat and eyes : Normal. Neck : Supple with normal carotids. Lungs: RHONCHI LT UPPER LUNG POSTERIORLY/AND RT.LL Heart : S1 & S2 normal . . No murmur. S4 + Abd : SOFT+ with normal bowel sounds. Neuro : Moves all ext. with no localized deficit. Ext : No edema with intact pulses. Neg. calf tenderness Derm : No rashes or decubitus ulcer. Radiology/Labs cd4 COUNT 87 LOW CD4/CD8 0.14 CRYPT ANTIGEN SERUM- NEGATIVE ESR 55 STOOL -C.DIFFICILE -VE LEUKOCYTES. CT CHEST W IV CONTRAST -VE PE TYRELL/LML&RLL INFIL E TREE/BUD APPEARANCE Asssessment : B/L PNEUMONIA ?CAP CS ATYPICAL R/O NTM INFECTION GASTROENTERITIS. HIV+VE . HEADACHES ?HX OF MIGRAINES DEPRESSION Plan : QUANTIFERON GOLD TB TEST-P SPUTUM FOR AFB DAILY X 3 DAYS ( MORNING SPECIMEN )-P BY INDUCING SPUTUM. DC IV AZITHROMAX ?ABDOMINAL PAIN/?QT PROLONGATION WITH HER PSYCHE MEDS. CONTINUE iv CEFTRIAXONE 1 G ONCE A DAY DAILY. 03/29/18 CONTINUE iv BACTRIM 240 MG TMP/SMX iv PIGGYBACK EVERY 12 HOURLY. 03/29/18. ADD IV DOXYCYCLINE 100MG IV [id number] FOR ATYPICAL ORGANISMS 03/30/18 DIARRHOEA W/U IN PROGRESS. TB W/U IN PROGRESS CRYPTOCOCCAL AG SERUM CRYPTOSPORIDIOSIS STOOL AG GIARDIA STOOL AG. ENTERIC PRECAUTIONS/ AIR BORNE PRECAUTIONS Objective - Vital Signs/Intake and Output Vital Signs (last 24 hours): Temp Pulse Resp BP Pulse Ox 98.0 F 65 20 110/68 100 03/31/18 16:00 03/31/18 18:01 03/31/18 16:00 03/31/18 16:00 03/31/18 16:00 Intake and Output: 03/31/18 03/31/18 06:59 18:59 Intake Total 900 740 Balance 900 740 - Medications Medications: Current Medications Al Hydrox/Mg Hydrox/Simethicone (Maalox 30 Ml) 10 ml PO TID PRN PRN Reason: Indigestion / Heartburn Last Admin: 03/31/18 14:33 Dose: 10 ml Albuterol (Ventolin Hfa 90 Mcg/Actuation (8 G)) 2 puff IH RQ6 [facility] Last Admin: 03/31/18 13:13 Dose: Not Given Albuterol/Ipratropium (Duoneb 3 Mg/0.5 Mg (3 Ml) Ud) 3 ml INH RQ6 [facility] Last Admin: 03/31/18 13:13 Dose: Not Given Belladonna/Phenobarbital () 1 tab PO TID PRN PRN Reason: Indigestion / Heartburn Last Admin: 03/31/18 17:41 Dose: 1 tab Benztropine Mesylate (Cogentin) 0.5 mg PO DAILY [facility] Last Admin: 03/31/18 11:25 Dose: 0.5 mg Dolutegravir Sodium (Tivicay) 50 mg PO DAILY [facility] PRN Reason: Protocol Last Admin: 03/31/18 11:25 Dose: 50 mg Emtricitabine/Tenofovir (Truvada 200 Mg-300 Mg) 1 tab PO DAILY [facility] PRN Reason: Protocol Last Admin: 03/31/18 11:25 Dose: 1 tab Ergocalciferol (Drisdol 50,000 Intl Units Cap) 1 cap PO QWK [facility] Escitalopram Oxalate (Lexapro) 20 mg PO DAILY [facility] Last Admin: 03/31/18 11:25 Dose: 20 mg Folic Acid (Folic Acid) 1 mg PO DAILY [facility] Last Admin: 03/31/18 11:24 Dose: 1 mg Haloperidol (Haldol) 2 mg PO DAILY [facility] Last Admin: 03/31/18 11:25 Dose: 2 mg Hydroxyzine HCl (Atarax) 25 mg PO BID [facility] Last Admin: 03/31/18 17:41 Dose: 25 mg Trimethoprim/Sulfamethoxazole (240 mg/ Dextrose) 250 mls @ 100 mls/hr IVPB Q12H [facility] PRN Reason: Protocol Last Admin: 03/31/18 11:25 Dose: 100 mls/hr Ceftriaxone Sodium 1 gm/ (Sodium Chloride) 100 mls @ 100 mls/hr IVPB Q24H [facility] PRN Reason: Protocol Last Admin: 03/31/18 17:41 Dose: 100 mls/hr Doxycycline Hyclate 100 mg/ (Sodium Chloride) 100 mls @ 100 mls/hr IVPB Q12H [facility] PRN Reason: Protocol Last Admin: 03/31/18 14:30 Dose: 100 mls/hr Ondansetron HCl (Zofran Inj) 4 mg IVP Q8 PRN PRN Reason: Nausea/Vomiting Last Admin: 03/30/18 13:07 Dose: 4 mg Pantoprazole Sodium (Protonix Ec Tab) 40 mg PO DAILY [facility] Last Admin: 03/31/18 17:41 Dose: 40 mg - Labs Labs: 03/31/18 08:11 03/31/18 08:11 PT 14.1 SECONDS (9.7-12.2) H 03/29/18 10:37 INR 1.3 03/29/18 10:37 APTT 34 SECONDS (21-34) 03/29/18 10:37 Assessment and Plan (1) Fever Status: Acute (2) Pneumonia Status: Acute (3) Gastroenteritis Status: Acute (4) 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
[2018-04-01] MEDS: Aluminum Hydroxide/Magnesium Hydroxide Susp (30 mL) PO PRN (00:46)
[2018-04-01] MEDS: Albuterol-Ipratrop 3 mg / 0.5 (3 ml) UD INH SCH ×4 (01:21→19:12)
[2018-04-01] MEDS: Albuterol HFA 90 mcg/actuation (8 g) IH SCH ×3 (01:21→19:11)
--- NOTE | 2018-04-01 03:23 | PN ---
DATE: 03/31/2018 SUBJECTIVE: The patient is seen today, 03/31/2018. She is not in any cardiopulmonary distress. The patient has epigastric pain and decreased cough and chest pain. OBJECTIVE: VITAL SIGNS: Blood pressure 110/68, temperature 98, respiratory rate 20, and pulse 63. HEENT: Pupils equal and reactive to light. Normal-appearing mucosa of the conjunctivae, oropharynx, and nasal membrane mucosa. NECK: Supple. No JVD. No carotid bruit. No lymph nodes. No thyromegaly. CHEST AND LUNGS: Bilateral symmetrical expansion. Good air exchange. No rales, no rhonchi. CARDIOVASCULAR SYSTEM: PMI not localized. S1, S2. No additional sounds. ABDOMEN: Normoactive bowel sounds. No tenderness. No organomegaly. No masses. EXTREMITIES: No cyanosis, no clubbing, no edema. MANAGER REGULATORY: Alert, awake, oriented x2. No neurological deficit could be appreciated. ASSESSMENT: Community-acquired pneumonia, human immunodeficiency virus positive, epigastric pain, possible gastritis. PLAN: We will give the patient Protonix as well as Maalox and . Follow ID recommendations. Lucy Reyna MD
[2018-04-01] MEDS: Sulfamethoxazole/Trimethoprim 240 MG in Dextrose 5% In Water 250 ML IVPB SCH ×2 (10:41→22:22)
[2018-04-01] MEDS: Emtricitabine-Tenofovir 200 mg-300 mg Tab PO SCH (10:42)
[2018-04-01] MEDS: Pantoprazole 40 mg EC Tab PO SCH (10:42)
--- NOTE | 2018-04-01 16:08 | CP.PCM.PN ---
Subjective - Date & Time of Evaluation Date of Evaluation: 04/01/18 Time of Evaluation: 16:08 - Subjective Subjective: CHIEF COMPLAINTS TODAY : afebrile, DENIES SOB C/O COUGH c/o abdominal pain ROS. HEENT : N. Resp : No SOB wheezing, + DRY COUGH Cardio : No CP, PND orthopnea GI : +VE ABD.PAIN, DIARRHOEA LADIES ATTENDANT : No headache , focal deficit. Musculoskel : N Ext. : Pedal pulses intact, no edema or calf pain Derm : N Psych : N. PE. Pt. is alert awake in no distress. V.S As noted in the chart Head ,ear nose,throat and eyes : Normal. Neck : Supple with normal carotids. Lungs: RHONCHI LT UPPER LUNG POSTERIORLY/AND RT.LL Heart : S1 & S2 normal . . No murmur. S4 + Abd : SOFT+ GENERALIZED TENDERNESS with normal bowel sounds. Neuro : Moves all ext. with no localized deficit. Ext : No edema with intact pulses. Neg. calf tenderness Derm : No rashes or decubitus ulcer. Radiology/Labs HIV 1-RNA PCR QT LEVEL 4.96 -HIGH CD4 COUNT 87 LOW CD4/CD8 0.14 CRYPT ANTIGEN SERUM- NEGATIVE ESR 55 STOOL +VE OB STOOL -C.DIFFICILE -VE LEUKOCYTES. CT CHEST W IV CONTRAST -VE PE TYRELL/LML&RLL INFIL E TREE/BUD APPEARANCE QUANTIFERON GOLD TB TEST- NEGATIVE Asssessment : B/L PNEUMONIA ?CAP CS ATYPICAL R/O NTM INFECTION ABDOMINAL PAIN .+VE GI BLEEDING R/O ULCER VS GI MALIGNANCY HIV+VE . HEADACHES ?HX OF MIGRAINES DEPRESSION Plan : SPUTUM FOR AFB DAILY X 3 DAYS ( MORNING SPECIMEN )-P BY INDUCING SPUTUM. CONTINUE iv CEFTRIAXONE 1 G ONCE A DAY DAILY. 03/29/18 CONTINUE iv BACTRIM 240 MG TMP/SMX iv PIGGYBACK EVERY 12 HOURLY. 03/29/18. ADD IV DOXYCYCLINE 100MG IV [id number] FOR ATYPICAL ORGANISMS 03/30/18 GI CONSULT IN PROGRESS. CT ABDOMEN W PO /CONTRAST ORDERED BY PMD DIARRHOEA W/U IN PROGRESS. TB W/U IN PROGRESS CRYPTOCOCCAL AG SERUM CRYPTOSPORIDIOSIS STOOL AG GIARDIA STOOL AG. ENTERIC PRECAUTIONS/ AIR BORNE PRECAUTIONS Objective - Vital Signs/Intake and Output Vital Signs (last 24 hours): Temp Pulse Resp BP Pulse Ox 98 F 80 20 121/68 99 04/01/18 08:00 04/01/18 08:00 04/01/18 08:00 04/01/18 08:00 04/01/18 08:00 Intake and Output: 04/01/18 04/01/18 06:59 18:59 Intake Total 500 650 Balance 500 650 - Medications Medications: Current Medications Al Hydrox/Mg Hydrox/Simethicone (Maalox 30 Ml) 10 ml PO TID PRN PRN Reason: Indigestion / Heartburn Last Admin: 04/01/18 00:46 Dose: 10 ml Albuterol (Ventolin Hfa 90 Mcg/Actuation (8 G)) 2 puff IH RQ6 [facility] Last Admin: 04/01/18 13:22 Dose: Not Given Albuterol/Ipratropium (Duoneb 3 Mg/0.5 Mg (3 Ml) Ud) 3 ml INH RQ6 [facility] Last Admin: 04/01/18 13:23 Dose: Not Given Belladonna/Phenobarbital () 1 tab PO TID PRN PRN Reason: Indigestion / Heartburn Last Admin: 03/31/18 17:41 Dose: 1 tab Benztropine Mesylate (Cogentin) 0.5 mg PO DAILY [facility] Last Admin: 04/01/18 10:42 Dose: 0.5 mg Dolutegravir Sodium (Tivicay) 50 mg PO DAILY [facility] PRN Reason: Protocol Last Admin: 04/01/18 10:42 Dose: 50 mg Emtricitabine/Tenofovir (Truvada 200 Mg-300 Mg) 1 tab PO DAILY [facility] PRN Reason: Protocol Last Admin: 04/01/18 10:42 Dose: 1 tab Ergocalciferol (Drisdol 50,000 Intl Units Cap) 1 cap PO QWK [facility] Escitalopram Oxalate (Lexapro) 20 mg PO DAILY [facility] Last Admin: 04/01/18 10:42 Dose: 20 mg Folic Acid (Folic Acid) 1 mg PO DAILY [facility] Last Admin: 04/01/18 10:42 Dose: 1 mg Haloperidol (Haldol) 2 mg PO DAILY [facility] Last Admin: 04/01/18 10:42 Dose: 2 mg Hydroxyzine HCl (Atarax) 25 mg PO BID [facility] Last Admin: 04/01/18 10:42 Dose: 25 mg Trimethoprim/Sulfamethoxazole (240 mg/ Dextrose) 250 mls @ 100 mls/hr IVPB Q12H [facility] PRN Reason: Protocol Last Admin: 04/01/18 10:41 Dose: 100 mls/hr Ceftriaxone Sodium 1 gm/ (Sodium Chloride) 100 mls @ 100 mls/hr IVPB Q24H [facility] PRN Reason: Protocol Last Admin: 03/31/18 17:41 Dose: 100 mls/hr Doxycycline Hyclate 100 mg/ (Sodium Chloride) 100 mls @ 100 mls/hr IVPB Q12H [facility] PRN Reason: Protocol Last Admin: 04/01/18 11:06 Dose: 100 mls/hr Ondansetron HCl (Zofran Inj) 4 mg IVP Q8 PRN PRN Reason: Nausea/Vomiting Last Admin: 03/30/18 13:07 Dose: 4 mg Pantoprazole Sodium (Protonix Ec Tab) 40 mg PO DAILY [facility] Last Admin: 04/01/18 10:42 Dose: 40 mg - Labs Labs: 03/31/18 08:11 03/31/18 08:11 PT 14.1 SECONDS (9.7-12.2) H 03/29/18 10:37 INR 1.3 03/29/18 10:37 APTT 34 SECONDS (21-34) 03/29/18 10:37 Assessment and Plan (1) Fever Status: Acute (2) Pneumonia Status: Acute (3) Gastroenteritis Status: Acute (4) 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
[2018-04-01] MEDS: Belladonna-Phenobarbital PO PRN (16:20)
[2018-04-01] MEDS ORDERED: Iohexol 240 (50 ml) PO ONE (19:45)
[2018-04-01] MEDS ORDERED: Iodixanol 320 mg/ml 150 ml Bottle IV ONE (21:35)
--- NOTE | 2018-04-01 23:37 | PN ---
DATE: 04/01/2018 DAILY PROGRESS NOTE SUBJECTIVE: The patient is seen today, 04/01/2018. She is not in any cardiopulmonary distress but the patient has abdominal pain. Also stool occult blood is positive. OBJECTIVE: VITAL SIGNS: Blood pressure 120/78, temperature 99.1, respiratory rate 20, and pulse 75. HEENT: Pupils equal, reactive to light. Normal-appearing mucosa of the conjunctivae, oropharynx and nasal membrane mucosa. NECK: Supple. No JVD. No carotid bruit. No lymph node. No thyromegaly. CHEST AND LUNGS: Bilateral symmetrical expansion. Good air exchange. No rales. No rhonchi. CARDIOVASCULAR SYSTEM: PMI not localized. S1, S2. No additional sounds. ABDOMEN: Normoactive bowel sounds. Positive epigastric tenderness. EXTREMITIES: No cyanosis, no clubbing, no edema. DAY CARE HOME MOTHER: Alert, awake, oriented x3. No neurological deficit could be appreciated. ASSESSMENT: Clinical pneumonia, human immunodeficiency virus positive, epigastric pain with stool occult positive for blood. PLAN: We will do GI consult. CT abdomen with p.o. contrast. Continue current medications. Lucy Reyna MD
[2018-04-02] MEDS: Albuterol-Ipratrop 3 mg / 0.5 (3 ml) UD INH SCH ×3 (01:13→20:06)
[2018-04-02] MEDS: Albuterol HFA 90 mcg/actuation (8 g) IH SCH ×3 (01:13→20:06)
[2018-04-02 08:46] LABS: BASO % 0.5 % (0.0-2.0); EOS # 0.1 K/uL (0.0-0.7); EOS % 4.1 % (0.0-4.0); HEMOGLOBIN 9.5 g/dL (11.0-16.0); LYMPH # 0.8 K/uL (1.0-4.3); LYMPH % 24.2 % (20.0-40.0); MEAN CORPUSCULAR HEMOGLOBIN 27.7 pg (27.0-31.0); MEAN CORPUSCULAR HGB CONC 34.7 g/dL (33.0-37.0); MEAN PLATELET VOLUME 8.8 fL (7.2-11.7); MONO # 0.2 K/uL (0.0-0.8); MONO % 5.3 % (0.0-10.0); NEUT # 2.3 K/uL (1.8-7.0); NEUT % 65.9 % (50.0-75.0); NRBC % 0.1 % (0.0-2.0); RBC 3.42 Mil/uL (3.80-5.20); RED CELL DISTRIBUTION WIDTH 17.4 % (11.5-14.5); WHITE BLOOD COUNT 3.5 K/uL (4.8-10.8)
[2018-04-02 09:00] LABS: ALB/GLOB RATIO 1.1 (1.0-2.1); ALBUMIN 3.4 g/dL (3.5-5.0); ALT/SGPT 28 U/L (9-52); AST/SGOT 11 U/L (14-36); BLOOD UREA NITROGEN 7 mg/dL (7-17); CALCIUM 8.8 mg/dl (8.6-10.4); GFR AFRICAN-AMERICAN > 60; GFR NON-AFRICAN AMERICAN > 60
--- NOTE | 2018-04-02 09:50 | CT ---
Date of service: 04/01/2018 PROCEDURE: CT Abdomen and Pelvis with contrast HISTORY: abdominal pain COMPARISON: 01/20/2017 TECHNIQUE: Contrast dose: 100 mL Visipaque 320 Radiation dose: Total exam DLP = 243.23 mGy-cm. This CT exam was performed using one or more of the following dose reduction techniques: Automated exposure control, adjustment of the mA and/or kV according to patient size, and/or use of iterative reconstruction technique. FINDINGS: LOWER THORAX: Small bilateral pleural effusion. No infiltrate. Trace subsegmental atelectasis both lower lobes secondary to pleural effusion. There is circumferential mural thickening of the distal side thickness. This may reflect esophagitis but further evaluation is advised to exclude neoplasm. LIVER: Mild hepatomegaly. The liver measures 19.3 cm craniocaudal. The right lobe is elongated and this may reflect a Apple's lobe configuration rather than true hepatomegaly. Smooth contour. . There is intrahepatic biliary dilatation in the right lobe of the liver but not on the left lobe. The patient is status post cholecystectomy. The right lobe biliary dilatation may be the result of this prior cholecystectomy but further evaluation is suggested. Correlate with laboratory evaluation. No mass. There are several coarse calcifications in the right lobe possibly granulomatous. GALLBLADDER AND BILE DUCTS: Cholecystectomy PANCREAS: Unremarkable. No gross lesion or ductal dilatation. SPLEEN: Mild splenomegaly. The spleen measures 14.9 cm in greatest dimension. No mass. ADRENALS: Unremarkable. No mass. KIDNEYS AND URETERS: Unremarkable. No hydronephrosis. No solid mass. VASCULATURE: Unremarkable. No aortic aneurysm. BOWEL: Circumferential mural thickening of the ascending colon, hepatic flexure and transverse colon consistent with nonspecific colitis. Consider the possibility of infectious colitis such as C difficile. Nonspecific circumferential mural thickening of the 2nd duodenum is noted. No evidence of bowel obstruction. Sigmoid diverticulosis. No evidence of diverticulitis. APPENDIX: Normal appendix. PERITONEUM: Unremarkable. No free fluid. No free air. LYMPH NODES: Trace ascites. No pneumoperitoneum. BLADDER: Unremarkable. REPRODUCTIVE: Normal uterus BONES: No acute fracture. OTHER FINDINGS: None. IMPRESSION: Findings consistent with nonspecific colitis. Biliary dilatation in the right lobe of the liver. Status post cholecystectomy. These may be related. Correlate with laboratory evaluation. Small bilateral pleural effusion. Mild hepatosplenomegaly. See above. Trace ascites. Nonspecific mural thickening of the distal esophagus. Consider correlation with endoscopy. Nonspecific mural thickening of the 2nd portion of the duodenum. The preliminary findings for this examination were reported by [facility] at 10:41 p.m. on 04/01/2018. There is concurrence of this report with the preliminary findings.
[2018-04-02] MEDS ORDERED: Ergocalciferol 50,000 Intl Units Cap PO SCH (10:00)
--- NOTE | 2018-04-02 11:11 | CP.PCM.CON ---
<Nestor Peter - Last Filed: 04/02/18 11:32> History of Present Illness - History of Present Illness History of Present Illness: GI Fellow PGY4, Consult Note. Consulted for positive occult stool. Latoya Anna is a 52yo female with history of HIV (non-compliant), arthritis, depression, esophageal ulcer who presented with community acquired pneumonia and changing GI symptoms and and positive occult stool. She is improving after supportive care and antibiotics. She developed abdominal pain and diarrhea 2 days ago. ID has been working her up for several opportunistic GI infections. She had EGD 12/30 which showed esophageal ulcer. Colonoscopy was done at the same time but poor prep. She conitnues to take NSAIDs intermittently and has not been taking PPI therapy. Her stool started to turn from brown to black 3 days ago. She has vomited, yellow material, this AM. No red blood seen. Social history: non-smoker, no ETOH use Family history: reviewed, no history of colon or GI cancer 12pt ROS completed and negative except for above. Past Patient History - Infectious Disease Hx of Infectious Diseases: None - Past Medical History & Family History Past Medical History?: Yes - Past Social History Smoking Status: Never Smoked - CARDIAC Hx Atrial Fibrillation: No Hx Cardia Arrhythmia: No Hx Congestive Heart Failure: No Hx Hypercholesterolemia: No Hx Hypertension: No Hx Mitral Valve Prolapse: No Hx Pacemaker: No Hx Peripheral Edema: No - PULMONARY Hx Asthma: No Hx Bronchitis: Yes Hx Chronic Obstructive Pulmonary Disease (COPD): No Hx Emphysema: No Hx Pneumonia: Yes Hx Pulmonary Embolism: No Hx Sleep Apnea: No - NEUROLOGICAL Hx Neurological Disorder: No - HEENT Hx HEENT Problems: No - RENAL Hx Chronic Kidney Disease: No - ENDOCRINE/METABOLIC Hx Endocrine Disorders: No - HEMATOLOGICAL/ONCOLOGICAL Hx Anemia: No Hx Human Immunodeficiency Virus (HIV): Yes Hx Sickle Cell Disease: No - INTEGUMENTARY Hx Dermatological Problems: No - MUSCULOSKELETAL/RHEUMATOLOGICAL Hx Arthritis: Yes Hx Fractures: No Hx Osteoporosis: No Hx Rheumatoid Arthritis: No - GASTROINTESTINAL Hx Crohn's Disease: No Hx Diverticulitis: Yes Hx Gall Bladder Disease: Yes Hx Gastritis: No Hx Pancreatitis: No - GENITOURINARY/GYNECOLOGICAL Hx Genitourinary Disorders: No - PSYCHIATRIC Hx Anxiety: No Hx Bipolar Disorder: No Hx Depression: Yes Hx Paranoia: No Hx Post Traumatic Stress Disorder: No Hx Schizophrenia: No Hx Substance Use: No - SURGICAL HISTORY Hx Appendectomy: No Hx Carotid Endarterectomy: No Hx Cholecystectomy: Yes Hx Coronary Artery Bypass Graft: No Hx Coronary Stent: No Hx Tonsillectomy: No - ANESTHESIA Hx Anesthesia: Yes Hx Anesthesia Reactions: No Hx Malignant Hyperthermia: No Meds Allergies/Adverse Reactions: Allergies Allergy/AdvReac Type Severity Reaction Status Date / Time orange Allergy Verified 03/29/18 09:57 risperidone [From Risperdal] Allergy RASH Verified 03/29/18 09:57 tomato Allergy RASH Verified 03/29/18 09:57 - Medications Medications: Current Medications Al Hydrox/Mg Hydrox/Simethicone (Maalox 30 Ml) 10 ml PO TID PRN PRN Reason: Indigestion / Heartburn Last Admin: 04/01/18 00:46 Dose: 10 ml Albuterol (Ventolin Hfa 90 Mcg/Actuation (8 G)) 2 puff IH RQ6 [facility] Last Admin: 04/02/18 08:01 Dose: Not Given Albuterol/Ipratropium (Duoneb 3 Mg/0.5 Mg (3 Ml) Ud) 3 ml INH RQ6 [facility] Last Admin: 04/02/18 08:01 Dose: Not Given Belladonna/Phenobarbital () 1 tab PO TID PRN PRN Reason: Indigestion / Heartburn Last Admin: 04/01/18 16:20 Dose: 1 tab Benztropine Mesylate (Cogentin) 0.5 mg PO DAILY [facility] Last Admin: 04/01/18 10:42 Dose: 0.5 mg Dolutegravir Sodium (Tivicay) 50 mg PO DAILY [facility] PRN Reason: Protocol Last Admin: 04/01/18 10:42 Dose: 50 mg Emtricitabine/Tenofovir (Truvada 200 Mg-300 Mg) 1 tab PO DAILY [facility] PRN Reason: Protocol Last Admin: 04/01/18 10:42 Dose: 1 tab Ergocalciferol (Drisdol 50,000 Intl Units Cap) 1 cap PO QWK [facility] Escitalopram Oxalate (Lexapro) 20 mg PO DAILY [facility] Last Admin: 04/01/18 10:42 Dose: 20 mg Folic Acid (Folic Acid) 1 mg PO DAILY [facility] Last Admin: 04/01/18 10:42 Dose: 1 mg Haloperidol (Haldol) 2 mg PO DAILY [facility] Last Admin: 04/01/18 10:42 Dose: 2 mg Trimethoprim/Sulfamethoxazole (240 mg/ Dextrose) 250 mls @ 100 mls/hr IVPB Q12H [facility] PRN Reason: Protocol Last Admin: 04/01/18 22:22 Dose: 100 mls/hr Ceftriaxone Sodium 1 gm/ (Sodium Chloride) 100 mls @ 100 mls/hr IVPB Q24H [facility] PRN Reason: Protocol Last Admin: 04/01/18 16:20 Dose: 100 mls/hr Doxycycline Hyclate 100 mg/ (Sodium Chloride) 100 mls @ 100 mls/hr IVPB Q12H [facility] PRN Reason: Protocol Last Admin: 04/02/18 00:08 Dose: 100 mls/hr Ondansetron HCl (Zofran Inj) 4 mg IVP Q8 PRN PRN Reason: Nausea/Vomiting Last Admin: 04/02/18 00:10 Dose: 4 mg Pantoprazole Sodium (Protonix Inj) 40 mg IVP Q12H [facility] Physical Exam - Constitutional Appears: Non-toxic, No Acute Distress, Chronically Ill - Head Exam Head Exam: ATRAUMATIC, NORMAL INSPECTION - Eye Exam Eye Exam: EOMI, Normal appearance, PERRL - ENT Exam ENT Exam: Mucous Membranes Moist, Normal Exam - Respiratory Exam Respiratory Exam: Clear to Auscultation Bilateral, NORMAL BREATHING PATTERN. absent: Wheezes - Cardiovascular Exam Cardiovascular Exam: REGULAR RHYTHM, +S1, +S2 - GI/Abdominal Exam GI & Abdominal Exam: Normal Bowel Sounds, Soft. absent: Organomegaly, Tenderness - Rectal Exam Rectal Exam: NORMAL INSPECTION - Extremities Exam Extremities exam: Positive for: normal inspection - Neurological Exam Neurological exam: Alert, CN II-XII Intact, Oriented x3 - Psychiatric Exam Psychiatric exam: Normal Affect, Normal Mood - Skin Skin Exam: Dry, Intact, Normal Color Results - Vital Signs Recent Vital Signs: Last Vital Signs Temp 98.2 F 04/02/18 07:52 Pulse 71 04/02/18 07:52 Resp 20 04/02/18 07:52 BP 114/67 04/02/18 07:52 Pulse Ox 100 04/02/18 07:52 - Labs Result Diagrams: 04/02/18 08:33 04/02/18 08:33 Labs: Laboratory Results - last 24 hr 07/04/02/18 04/02/18 08:11 08:33 08:33 WBC 3.5 L RBC 3.42 L Hgb 9.5 L Hct 27.4 L MCV 80.0 L MCH 27.7 MCHC 34.7 RDW 17.4 H Plt Count 162 MPV 8.8 Neut % (Auto) 65.9 Lymph % (Auto) 24.2 Clark % (Auto) 5.3 Eos % (Auto) 4.1 H Baso % (Auto) 0.5 Neut # (Auto) 2.3 Lymph # (Auto) 0.8 L Clark # (Auto) 0.2 Eos # (Auto) 0.1 Baso # (Auto) 0.0 Sodium 139 Potassium 4.0 Chloride 107 Carbon Dioxide 23 Anion Gap 13 BUN 7 Creatinine 0.6 L Est GFR ( Amer) > 60 Est GFR (Non-Af Amer) > 60 Random Glucose 88 Calcium 8.8 Total Bilirubin 0.3 AST 11 L D ALT 28 Alkaline Phosphatase 114 Total Protein 6.5 Albumin 3.4 L Globulin 3.0 Albumin/Globulin Ratio 1.1 TB Test (QFT) Nil 0.07 TB Test Mitogen - Nil 2.17 TB Test TB - Nil <0.00 TB Test (QFT) Negative Assessment & Plan - Assessment and Plan (Free Text) Assessment: 52F with history of HIV (non-compliant), arthritis, depression, esophageal ulcer who presented with community acquired pneumonia and changing GI symptoms and and positive occult stool. #Epigastric pain #Acute diarrhea #Chronic NSAID use #Possible upper gi bleed #Anemia #Mural thickening of distal esophagus #Right Biliary intrahepatic dilation #Right sided colitis. #CAP #HIV, noncompliant #OA #Hx of Esophageal ulcer. Plan: -Continue supportive care -Continue Abx per ID for CAP and prophylaxis. Avoid Doxy PO (Pill esophagitis) -Stool culture, ova, parasites PENDING -F/U Stool Ag tests. C. Diff negative. -Monitor Hb closely. Transfuse to maintain Hb greater than 7. -PPI BID IV -Avoid NSAIDs, Anticoag. -Clinical picture and imaging concerning for significant distal esophagitis and ?infectious colitis. -Endoscopic procedures per clinical course. She ate this AM and procedure not emergent at this time, but we will continue to follow closely. <Michelle Braga - Last Filed: 04/02/18 11:48> Meds - Medications Medications: Current Medications Al Hydrox/Mg Hydrox/Simethicone (Maalox 30 Ml) 10 ml PO TID PRN PRN Reason: Indigestion / Heartburn Last Admin: 04/01/18 00:46 Dose: 10 ml Albuterol (Ventolin Hfa 90 Mcg/Actuation (8 G)) 2 puff IH RQ6 [facility] Last Admin: 04/02/18 08:01 Dose: Not Given Albuterol/Ipratropium (Duoneb 3 Mg/0.5 Mg (3 Ml) Ud) 3 ml INH RQ6 [facility] Last Admin: 04/02/18 08:01 Dose: Not Given Belladonna/Phenobarbital () 1 tab PO TID PRN PRN Reason: Indigestion / Heartburn Last Admin: 04/01/18 16:20 Dose: 1 tab Benztropine Mesylate (Cogentin) 0.5 mg PO DAILY [facility] Last Admin: 04/02/18 11:34 Dose: 0.5 mg Dolutegravir Sodium (Tivicay) 50 mg PO DAILY [facility] PRN Reason: Protocol Last Admin: 04/02/18 11:34 Dose: 50 mg Emtricitabine/Tenofovir (Truvada 200 Mg-300 Mg) 1 tab PO DAILY [facility] PRN Reason: Protocol Last Admin: 04/02/18 11:34 Dose: 1 tab Ergocalciferol (Drisdol 50,000 Intl Units Cap) 1 cap PO QWK [facility] Last Admin: 04/02/18 11:34 Dose: 1 cap Escitalopram Oxalate (Lexapro) 20 mg PO DAILY [facility] Last Admin: 04/02/18 11:34 Dose: 20 mg Folic Acid (Folic Acid) 1 mg PO DAILY [facility] Last Admin: 04/02/18 11:34 Dose: 1 mg Haloperidol (Haldol) 2 mg PO DAILY [facility] Last Admin: 04/02/18 11:35 Dose: 2 mg Trimethoprim/Sulfamethoxazole (240 mg/ Dextrose) 250 mls @ 100 mls/hr IVPB Q12H [facility] PRN Reason: Protocol Last Admin: 04/02/18 11:35 Dose: 100 mls/hr Ceftriaxone Sodium 1 gm/ (Sodium Chloride) 100 mls @ 100 mls/hr IVPB Q24H [facility] PRN Reason: Protocol Last Admin: 04/01/18 16:20 Dose: 100 mls/hr Doxycycline Hyclate 100 mg/ (Sodium Chloride) 100 mls @ 100 mls/hr IVPB Q12H [facility] PRN Reason: Protocol Last Admin: 04/02/18 00:08 Dose: 100 mls/hr Ondansetron HCl (Zofran Inj) 4 mg IVP Q8 PRN PRN Reason: Nausea/Vomiting Last Admin: 04/02/18 00:10 Dose: 4 mg Pantoprazole Sodium (Protonix Inj) 40 mg IVP Q12H [facility] Last Admin: 04/02/18 11:34 Dose: 40 mg Results - Vital Signs Recent Vital Signs: Last Vital Signs Temp 98.2 F 04/02/18 07:52 Pulse 71 04/02/18 07:52 Resp 20 04/02/18 07:52 BP 114/67 04/02/18 07:52 Pulse Ox 100 04/02/18 07:52 - Labs Result Diagrams: 04/02/18 08:33 04/02/18 08:33 Labs: Laboratory Results - last 24 hr 03/31/18 04/02/18 04/02/18 08:11 08:33 08:33 WBC 3.5 L RBC 3.42 L Hgb 9.5 L Hct 27.4 L MCV 80.0 L MCH 27.7 MCHC 34.7 RDW 17.4 H Plt Count 162 MPV 8.8 Neut % (Auto) 65.9 Lymph % (Auto) 24.2 Clark % (Auto) 5.3 Eos % (Auto) 4.1 H Baso % (Auto) 0.5 Neut # (Auto) 2.3 Lymph # (Auto) 0.8 L Clark # (Auto) 0.2 Eos # (Auto) 0.1 Baso # (Auto) 0.0 Sodium 139 Potassium 4.0 Chloride 107 Carbon Dioxide 23 Anion Gap 13 BUN 7 Creatinine 0.6 L Est GFR ( Amer) > 60 Est GFR (Non-Af Amer) > 60 Random Glucose 88 Calcium 8.8 Total Bilirubin 0.3 AST 11 L D ALT 28 Alkaline Phosphatase 114 Total Protein 6.5 Albumin 3.4 L Globulin 3.0 Albumin/Globulin Ratio 1.1 TB Test (QFT) Nil 0.07 TB Test Mitogen - Nil 2.17 TB Test TB - Nil <0.00 TB Test (QFT) Negative Attending/Attestation - Attestation I have personally seen and examined this patient.: Yes I have fully participated in the care of the patient.: Yes I have reviewed all pertinent clinical information: Yes Notes (Text): 04/02/18 11:45 Patient seen and examined with GI fellow at bedside. This is a 52 yr old F with history of HIV (non-compliant), arthritis, depression, esophageal ulcer who presented with community acquired pneumonia and changing GI symptoms and and positive occult stool. No s/s of overt Gi bleeding. H/Hct stable. Mural thickening of distal esophagus may be esophagitis or esophageal ulcer. Will continue PPi po daily. Stool infectious work up pending. C diff negative. Diet as tolerated. Due to no overt Gi bleeding will schedule endoscopy if clinically warranted. Will trend daily CBC and treat active infections. Diet as tolerated.
[2018-04-02] MEDS: Emtricitabine-Tenofovir 200 mg-300 mg Tab PO SCH (11:34)
[2018-04-02] MEDS: Sulfamethoxazole/Trimethoprim 240 MG in Dextrose 5% In Water 250 ML IVPB SCH ×2 (11:35→22:47)
--- NOTE | 2018-04-02 17:36 | CP.PCM.PN ---
Subjective - Date & Time of Evaluation Date of Evaluation: 04/02/18 Time of Evaluation: 17:35 - Subjective Subjective: CHIEF COMPLAINTS TODAY : afebrile, DENIES SOB C/O COUGH c/o abdominal pain MAINLY EPIGASTRIC. dENIES FURTHER HEADACHES ROS. HEENT : N. 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 Musculoskel : N Ext. : Pedal pulses intact, no edema or calf pain Derm : N Psych : N. PE. Pt. is alert awake in no distress. V.S As noted in the chart Head ,ear nose,throat and eyes : Normal. Neck : Supple with normal carotids. Lungs: RHONCHI LT UPPER LUNG POSTERIORLY/AND RT.LL Heart : S1 & S2 normal . . No murmur. S4 + Abd : SOFT+ GENERALIZED TENDERNESS with normal bowel sounds. Neuro : Moves all ext. with no localized deficit. Ext : No edema with intact pulses. Neg. calf tenderness Derm : No rashes or decubitus ulcer. Radiology/Labs HIV 1-RNA PCR QT LEVEL 4.96 -HIGH CD4 COUNT 87 LOW CD4/CD8 0.14 CRYPT ANTIGEN SERUM- NEGATIVE ESR 55 STOOL +VE OB STOOL -C.DIFFICILE -VE LEUKOCYTES. CT CHEST W IV CONTRAST -VE PE TYRELL/LML&RLL INFIL E TREE/BUD APPEARANCE QUANTIFERON GOLD TB TEST- NEGATIVE CT ABD/PELVIS W IV/PO CONTRAST 04/02/18 REVIEWED. Thickening of distal esophagus. Biliary dilatation right lobe of the liver, with coarse calcifications in the liver consistent with granulomas. Mural thickening ascending colon/hepatic flexure/transverse colon ? Colitis. Circumferential thickening second portion of duodenum. Asssessment : B/L PNEUMONIA ?CAP CS ATYPICAL R/O NTM INFECTION ABDOMINAL PAIN .+VE GI BLEEDING R/O ULCER VS GI MALIGNANCY VS ESOPHAGITIS HIV+VE .NONCOMPLIANT HEADACHES ?HX OF MIGRAINES DEPRESSION Plan : SPUTUM FOR AFB DAILY X 3 DAYS ( MORNING SPECIMEN )-P BY INDUCING SPUTUM. CONTINUE iv CEFTRIAXONE 1 G ONCE A DAY DAILY. 03/29/18 CONTINUE iv BACTRIM 240 MG TMP/SMX iv PIGGYBACK EVERY 12 HOURLY. 03/29/18. ADD IV DOXYCYCLINE 100MG IV [id number] FOR ATYPICAL ORGANISMS 03/30/18 GI W/U IN PROGRESS. PATIENT FOR COLONOSCOPY/EGD WITH APPROPRIATE BIOPSIES FOR AFB,CMV,HERPES AND CRYTOSPORIDIOSIS/MICROSPORIDIOSIS DIARRHOEA W/U IN PROGRESS. TB W/U IN PROGRESS CRYPTOSPORIDIOSIS STOOL AG GIARDIA STOOL AG. ENTERIC PRECAUTIONS/ AIR BORNE PRECAUTIONS Objective - Vital Signs/Intake and Output Vital Signs (last 24 hours): Temp Pulse Resp BP Pulse Ox 98.2 F 88 16 120/72 100 04/02/18 16:00 04/02/18 16:00 04/02/18 16:00 04/02/18 16:00 04/02/18 16:00 Intake and Output: 04/02/18 04/02/18 06:59 18:59 Intake Total 500 730 Balance 500 730 - Medications Medications: Current Medications Al Hydrox/Mg Hydrox/Simethicone (Maalox 30 Ml) 10 ml PO TID PRN PRN Reason: Indigestion / Heartburn Last Admin: 04/01/18 00:46 Dose: 10 ml Albuterol (Ventolin Hfa 90 Mcg/Actuation (8 G)) 2 puff IH RQ6 [facility] Last Admin: 04/02/18 08:01 Dose: Not Given Albuterol/Ipratropium (Duoneb 3 Mg/0.5 Mg (3 Ml) Ud) 3 ml INH RQ6 [facility] Last Admin: 04/02/18 08:01 Dose: Not Given Belladonna/Phenobarbital () 1 tab PO TID PRN PRN Reason: Indigestion / Heartburn Last Admin: 04/01/18 16:20 Dose: 1 tab Benztropine Mesylate (Cogentin) 0.5 mg PO DAILY [facility] Last Admin: 04/02/18 11:34 Dose: 0.5 mg Dolutegravir Sodium (Tivicay) 50 mg PO DAILY [facility] PRN Reason: Protocol Last Admin: 04/02/18 11:34 Dose: 50 mg Emtricitabine/Tenofovir (Truvada 200 Mg-300 Mg) 1 tab PO DAILY [facility] PRN Reason: Protocol Last Admin: 04/02/18 11:34 Dose: 1 tab Ergocalciferol (Drisdol 50,000 Intl Units Cap) 1 cap PO QWK [facility] Last Admin: 04/02/18 11:34 Dose: 1 cap Escitalopram Oxalate (Lexapro) 20 mg PO DAILY [facility] Last Admin: 04/02/18 11:34 Dose: 20 mg Folic Acid (Folic Acid) 1 mg PO DAILY [facility] Last Admin: 04/02/18 11:34 Dose: 1 mg Haloperidol (Haldol) 2 mg PO DAILY [facility] Last Admin: 04/02/18 11:35 Dose: 2 mg Trimethoprim/Sulfamethoxazole (240 mg/ Dextrose) 250 mls @ 100 mls/hr IVPB Q12H [facility] PRN Reason: Protocol Last Admin: 04/02/18 11:35 Dose: 100 mls/hr Ceftriaxone Sodium 1 gm/ (Sodium Chloride) 100 mls @ 100 mls/hr IVPB Q24H [facility] PRN Reason: Protocol Last Admin: 04/02/18 15:43 Dose: 100 mls/hr Doxycycline Hyclate 100 mg/ (Sodium Chloride) 100 mls @ 100 mls/hr IVPB Q12H [facility] PRN Reason: Protocol Last Admin: 04/02/18 14:31 Dose: 100 mls/hr Ondansetron HCl (Zofran Inj) 4 mg IVP Q8 PRN PRN Reason: Nausea/Vomiting Last Admin: 04/02/18 00:10 Dose: 4 mg Pantoprazole Sodium (Protonix Inj) 40 mg IVP Q12H [facility] Last Admin: 04/02/18 11:34 Dose: 40 mg - Labs Labs: 04/02/18 08:33 04/02/18 08:33 PT 14.1 SECONDS (9.7-12.2) H 03/29/18 10:37 INR 1.3 03/29/18 10:37 APTT 34 SECONDS (21-34) 03/29/18 10:37 Assessment and Plan (1) Fever Status: Acute (2) Pneumonia Status: Acute (3) Gastroenteritis Status: Acute (4) 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
[2018-04-03] MEDS: Albuterol-Ipratrop 3 mg / 0.5 (3 ml) UD INH SCH ×3 (01:23→13:20)
[2018-04-03] MEDS: Albuterol HFA 90 mcg/actuation (8 g) IH SCH ×3 (01:23→13:20)
--- NOTE | 2018-04-03 03:34 | PN ---
DATE: 04/02/2018 SUBJECTIVE: She is not in any cardiopulmonary distress. Abdominal pain is less. CAT scan of the abdomen and pelvis was done, that showed nonspecific picture of colitis. PHYSICAL EXAMINATION: VITAL SIGNS: Blood pressure 114/67, temperature 98.2, respiratory rate 20, and pulse 82. HEENT: Pupils equal, reactive to light. Normal-appearing mucosa of the conjunctivae, oropharynx, and nasal membrane mucosa. NECK: Supple. No JVD. No carotid bruit. No lymph node. No thyromegaly. CHEST AND LUNGS: Bilateral symmetrical expansion. Good air exchange. No rales. No rhonchi. CARDIOVASCULAR SYSTEM: PMI not localized. S1, S2. No additional sounds. ABDOMEN: Normoactive bowel sounds. No tenderness. No organomegaly. No masses. EXTREMITIES: No cyanosis, no clubbing, no edema. 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 No neurological deficit could be appreciated. ASSESSMENT: 1. Nonspecific colitis, status post viral infection. 2. Clinical pneumonia. PLAN: We will follow GI consult. Continue current antibiotics and follow ID consultants. Lucy Reyna MD
--- NOTE | 2018-04-03 08:34 | CP.PCM.PN ---
<Annelise Crawley - Last Filed: 04/03/18 08:30> Subjective - Date & Time of Evaluation Date of Evaluation: 04/03/18 Time of Evaluation: 07:00 - Subjective Subjective: GI Fellow PGY5 Progress Note Pt seen and evaluated at bedside, pt doing well with complaints of abdominal pain, diarrhea, nausea or vomiting. Denies rectal bleeding. ROS: A 12pt ROS was negative except as above. Objective - Vital Signs/Intake and Output Vital Signs (last 24 hours): Temp Pulse Resp BP Pulse Ox 98.2 F 72 20 114/70 98 04/03/18 07:00 04/03/18 07:00 04/03/18 07:00 04/03/18 07:00 04/03/18 07:00 - Medications Medications: Current Medications Al Hydrox/Mg Hydrox/Simethicone (Maalox 30 Ml) 10 ml PO TID PRN PRN Reason: Indigestion / Heartburn Last Admin: 04/01/18 00:46 Dose: 10 ml Albuterol (Ventolin Hfa 90 Mcg/Actuation (8 G)) 2 puff IH RQ6 [facility] Last Admin: 04/03/18 01:23 Dose: Not Given Albuterol/Ipratropium (Duoneb 3 Mg/0.5 Mg (3 Ml) Ud) 3 ml INH RQ6 [facility] Last Admin: 04/03/18 01:23 Dose: Not Given Belladonna/Phenobarbital () 1 tab PO TID PRN PRN Reason: Indigestion / Heartburn Last Admin: 04/01/18 16:20 Dose: 1 tab Benztropine Mesylate (Cogentin) 0.5 mg PO DAILY [facility] Last Admin: 04/02/18 11:34 Dose: 0.5 mg Dolutegravir Sodium (Tivicay) 50 mg PO DAILY [facility] PRN Reason: Protocol Last Admin: 04/02/18 11:34 Dose: 50 mg Emtricitabine/Tenofovir (Truvada 200 Mg-300 Mg) 1 tab PO DAILY [facility] PRN Reason: Protocol Last Admin: 04/02/18 11:34 Dose: 1 tab Ergocalciferol (Drisdol 50,000 Intl Units Cap) 1 cap PO QWK [facility] Last Admin: 04/02/18 11:34 Dose: 1 cap Escitalopram Oxalate (Lexapro) 20 mg PO DAILY [facility] Last Admin: 04/02/18 11:34 Dose: 20 mg Folic Acid (Folic Acid) 1 mg PO DAILY [facility] Last Admin: 04/02/18 11:34 Dose: 1 mg Haloperidol (Haldol) 2 mg PO DAILY [facility] Last Admin: 04/02/18 11:35 Dose: 2 mg Trimethoprim/Sulfamethoxazole (240 mg/ Dextrose) 250 mls @ 100 mls/hr IVPB Q12H [facility] PRN Reason: Protocol Last Admin: 04/02/18 22:47 Dose: 100 mls/hr Ceftriaxone Sodium 1 gm/ (Sodium Chloride) 100 mls @ 100 mls/hr IVPB Q24H [facility] PRN Reason: Protocol Last Admin: 04/02/18 15:43 Dose: 100 mls/hr Doxycycline Hyclate 100 mg/ (Sodium Chloride) 100 mls @ 100 mls/hr IVPB Q12H [facility] PRN Reason: Protocol Last Admin: 04/03/18 00:22 Dose: 100 mls/hr Ondansetron HCl (Zofran Inj) 4 mg IVP Q8 PRN PRN Reason: Nausea/Vomiting Last Admin: 04/02/18 00:10 Dose: 4 mg Pantoprazole Sodium (Protonix Inj) 40 mg IVP Q12H [facility] Last Admin: 04/02/18 22:47 Dose: 40 mg - Labs Labs: 04/02/18 08:33 04/02/18 08:33 PT 14.1 SECONDS (9.7-12.2) H 03/29/18 10:37 INR 1.3 03/29/18 10:37 APTT 34 SECONDS (21-34) 03/29/18 10:37 - Constitutional Appears: Non-toxic, No Acute Distress - Head Exam Head Exam: ATRAUMATIC, NORMAL INSPECTION, NORMOCEPHALIC - Eye Exam Eye Exam: EOMI, Normal appearance, PERRL - ENT Exam ENT Exam: Mucous Membranes Moist - Neck Exam Neck Exam: Full ROM - Respiratory Exam Respiratory Exam: NORMAL BREATHING PATTERN - Cardiovascular Exam Cardiovascular Exam: REGULAR RHYTHM, RRR - GI/Abdominal Exam GI & Abdominal Exam: Soft, Normal Bowel Sounds. absent: Distended, Tenderness - Rectal Exam Rectal Exam: Deferred - Extremities Exam Extremities Exam: Full ROM - Neurological Exam Neurological Exam: Alert, Awake, Oriented x3 - Psychiatric Exam Psychiatric exam: Normal Affect, Normal Mood - Skin Skin Exam: Dry, Intact, Normal Color, Warm Assessment and Plan - Assessment and Plan (Free Text) Assessment: This is a 52F with history of HIV (non-compliant), arthritis, depression, esophageal ulcer who presented with community acquired pneumonia and changing GI symptoms and and positive occult stool. 1. Epigastric pain-resolved 2. Acute diarrhea-improving 3. Chronic NSAID use 4. Anemia 5. Mural thickening of distal esophagus 6. Right Biliary intrahepatic dilation 7. Right sided colitis 8. CAP 9. HIV, noncompliant 10. Hx of Esophageal ulcer Plan: -Continue supportive care -Continue Abx per ID for CAP and HIV antivirals -Stool culture, ova, parasites pending -F/U Stool Ag tests. C. Diff negative. -Monitor Hb closely. Transfuse to maintain Hb greater than 7. -PPI BID IV -Avoid NSAIDs -Pt hemodynamically stable with no active GI bleeding -Endoscopic procedures per clinical course, monitor H/H, no plan for emergent EGD at this time -EGD 12/2017 with esophageal ulcer, colonoscopy with poor prep needs repeat as outpt -Will continue to follow closely. <Michelle Braga - Last Filed: 04/03/18 09:09> Objective - Vital Signs/Intake and Output Vital Signs (last 24 hours): Temp Pulse Resp BP Pulse Ox 98.2 F 69 20 114/70 98 04/03/18 07:00 04/03/18 07:10 04/03/18 07:00 04/03/18 07:00 04/03/18 07:00 - Medications Medications: Current Medications Al Hydrox/Mg Hydrox/Simethicone (Maalox 30 Ml) 10 ml PO TID PRN PRN Reason: Indigestion / Heartburn Last Admin: 04/01/18 00:46 Dose: 10 ml Albuterol (Ventolin Hfa 90 Mcg/Actuation (8 G)) 2 puff IH RQ6 [facility] Last Admin: 04/03/18 08:34 Dose: 2 puff Albuterol/Ipratropium (Duoneb 3 Mg/0.5 Mg (3 Ml) Ud) 3 ml INH RQ6 [facility] Last Admin: 04/03/18 08:34 Dose: Not Given Belladonna/Phenobarbital () 1 tab PO TID PRN PRN Reason: Indigestion / Heartburn Last Admin: 04/01/18 16:20 Dose: 1 tab Benztropine Mesylate (Cogentin) 0.5 mg PO DAILY [facility] Last Admin: 04/02/18 11:34 Dose: 0.5 mg Dolutegravir Sodium (Tivicay) 50 mg PO DAILY [facility] PRN Reason: Protocol Last Admin: 04/02/18 11:34 Dose: 50 mg Emtricitabine/Tenofovir (Truvada 200 Mg-300 Mg) 1 tab PO DAILY [facility] PRN Reason: Protocol Last Admin: 04/02/18 11:34 Dose: 1 tab Ergocalciferol (Drisdol 50,000 Intl Units Cap) 1 cap PO QWK [facility] Last Admin: 04/02/18 11:34 Dose: 1 cap Escitalopram Oxalate (Lexapro) 20 mg PO DAILY [facility] Last Admin: 04/02/18 11:34 Dose: 20 mg Folic Acid (Folic Acid) 1 mg PO DAILY [facility] Last Admin: 04/02/18 11:34 Dose: 1 mg Haloperidol (Haldol) 2 mg PO DAILY [facility] Last Admin: 04/02/18 11:35 Dose: 2 mg Trimethoprim/Sulfamethoxazole (240 mg/ Dextrose) 250 mls @ 100 mls/hr IVPB Q12H [facility] PRN Reason: Protocol Last Admin: 04/02/18 22:47 Dose: 100 mls/hr Ceftriaxone Sodium 1 gm/ (Sodium Chloride) 100 mls @ 100 mls/hr IVPB Q24H [facility] PRN Reason: Protocol Last Admin: 04/02/18 15:43 Dose: 100 mls/hr Doxycycline Hyclate 100 mg/ (Sodium Chloride) 100 mls @ 100 mls/hr IVPB Q12H [facility] PRN Reason: Protocol Last Admin: 04/03/18 00:22 Dose: 100 mls/hr Ondansetron HCl (Zofran Inj) 4 mg IVP Q8 PRN PRN Reason: Nausea/Vomiting Last Admin: 04/02/18 00:10 Dose: 4 mg Pantoprazole Sodium (Protonix Inj) 40 mg IVP Q12H [facility] Last Admin: 04/02/18 22:47 Dose: 40 mg - Labs Labs: 04/03/18 08:49 04/02/18 08:33 PT 14.1 SECONDS (9.7-12.2) H 03/29/18 10:37 INR 1.3 03/29/18 10:37 APTT 34 SECONDS (21-34) 03/29/18 10:37 Attending/Attestation - Attestation I have personally seen and examined this patient.: Yes I have fully participated in the care of the patient.: Yes I have reviewed all pertinent clinical information, including history, physical exam and plan: Yes Notes (Text): 04/03/18 09:07 Patient seen and examined with GI fellow at bedside. This is a 52 yr old F with history of HIV (non-compliant), arthritis, depression, esophageal ulcer who presented with community acquired pneumonia and loose stools, nausea, vomiting which has all resolved now and she is tolerating regular diet. No s/s of overt Gi bleeding with occult positive. H/Hct stable. Mural thickening of distal esophagus may be esophagitis or esophageal ulcer. Will continue PPi po daily. Stool infectious work up pending. C diff negative. Diet as tolerated. Due to no overt Gi bleeding can get outpatient EGD/ colonoscopy once respiratory and infectious issues resolved. No indication for inpatient scope. Antibiotics as per ID. Thank you for letting us allow to participate in the care of your patient.
[2018-04-03 08:57] LABS: BASO % 0.7 % (0.0-2.0); EOS # 0.2 K/uL (0.0-0.7); HEMOGLOBIN 9.9 g/dL (11.0-16.0); LYMPH # 0.8 K/uL (1.0-4.3); LYMPH % 28.5 % (20.0-40.0); MEAN CELL VOLUME 80.8 fL (81.0-99.0); MEAN CORPUSCULAR HEMOGLOBIN 27.6 pg (27.0-31.0); MEAN CORPUSCULAR HGB CONC 34.1 g/dL (33.0-37.0); MEAN PLATELET VOLUME 8.8 fL (7.2-11.7); MONO # 0.2 K/uL (0.0-0.8); MONO % 5.6 % (0.0-10.0); NEUT # 1.7 K/uL (1.8-7.0); NEUT % 58.2 % (50.0-75.0); NRBC % 0.1 % (0.0-2.0); RBC 3.6 Mil/uL (3.80-5.20); RED CELL DISTRIBUTION WIDTH 16.9 % (11.5-14.5)
[2018-04-03 09:14] LABS: ALB/GLOB RATIO 1.1 (1.0-2.1); ALBUMIN 3.9 g/dL (3.5-5.0); ALT/SGPT 25 U/L (9-52); AST/SGOT 15 U/L (14-36); BLOOD UREA NITROGEN 7 mg/dL (7-17); CALCIUM 9.3 mg/dl (8.6-10.4); GFR AFRICAN-AMERICAN > 60; GFR NON-AFRICAN AMERICAN > 60
[2018-04-03] MEDS: Sulfamethoxazole/Trimethoprim 240 MG in Dextrose 5% In Water 250 ML IVPB SCH ×2 (09:59→22:20)
[2018-04-03] MEDS: Emtricitabine-Tenofovir 200 mg-300 mg Tab PO SCH (09:59)
--- NOTE | 2018-04-03 12:26 | CP.PCM.PN ---
<Alexys Aly S - Last Filed: 04/03/18 15:38> Subjective - Date & Time of Evaluation Date of Evaluation: 04/03/18 Time of Evaluation: 12:25 - Subjective Subjective: Progress Note for Medicine- Dr. Navarro covering Dr. Reyna Pt seen and examined at bedside. She states that she is "feeling much better today." She denies nausea, vomiting, abdominal pain, diarrhea, constipation. No acute events overnight as per nursing. Objective - Vital Signs/Intake and Output Vital Signs (last 24 hours): Temp Pulse Resp BP Pulse Ox 98.2 F 69 20 114/70 98 04/03/18 07:00 04/03/18 07:10 04/03/18 07:00 04/03/18 07:00 04/03/18 07:00 - Medications Medications: Current Medications Al Hydrox/Mg Hydrox/Simethicone (Maalox 30 Ml) 10 ml PO TID PRN PRN Reason: Indigestion / Heartburn Last Admin: 04/01/18 00:46 Dose: 10 ml Albuterol (Ventolin Hfa 90 Mcg/Actuation (8 G)) 2 puff IH RQ6 [facility] Last Admin: 04/03/18 08:34 Dose: 2 puff Albuterol/Ipratropium (Duoneb 3 Mg/0.5 Mg (3 Ml) Ud) 3 ml INH RQ6 [facility] Last Admin: 04/03/18 08:34 Dose: Not Given Belladonna/Phenobarbital () 1 tab PO TID PRN PRN Reason: Indigestion / Heartburn Last Admin: 04/01/18 16:20 Dose: 1 tab Benztropine Mesylate (Cogentin) 0.5 mg PO DAILY [facility] Last Admin: 04/03/18 09:59 Dose: 0.5 mg Dolutegravir Sodium (Tivicay) 50 mg PO DAILY [facility] PRN Reason: Protocol Last Admin: 04/03/18 09:59 Dose: 50 mg Emtricitabine/Tenofovir (Truvada 200 Mg-300 Mg) 1 tab PO DAILY [facility] PRN Reason: Protocol Last Admin: 04/03/18 09:59 Dose: 1 tab Ergocalciferol (Drisdol 50,000 Intl Units Cap) 1 cap PO QWK [facility] Last Admin: 04/02/18 11:34 Dose: 1 cap Escitalopram Oxalate (Lexapro) 20 mg PO DAILY [facility] Last Admin: 04/03/18 09:59 Dose: 20 mg Folic Acid (Folic Acid) 1 mg PO DAILY [facility] Last Admin: 04/03/18 09:59 Dose: 1 mg Haloperidol (Haldol) 2 mg PO DAILY [facility] Last Admin: 04/03/18 09:59 Dose: 2 mg Trimethoprim/Sulfamethoxazole (240 mg/ Dextrose) 250 mls @ 100 mls/hr IVPB Q12H [facility] PRN Reason: Protocol Last Admin: 04/03/18 09:59 Dose: 100 mls/hr Ceftriaxone Sodium 1 gm/ (Sodium Chloride) 100 mls @ 100 mls/hr IVPB Q24H [facility] PRN Reason: Protocol Last Admin: 04/02/18 15:43 Dose: 100 mls/hr Doxycycline Hyclate 100 mg/ (Sodium Chloride) 100 mls @ 100 mls/hr IVPB Q12H [facility] PRN Reason: Protocol Last Admin: 04/03/18 12:18 Dose: 100 mls/hr Ondansetron HCl (Zofran Inj) 4 mg IVP Q8 PRN PRN Reason: Nausea/Vomiting Last Admin: 04/02/18 00:10 Dose: 4 mg Pantoprazole Sodium (Protonix Inj) 40 mg IVP Q12H [facility] Last Admin: 04/03/18 10:15 Dose: 40 mg - Labs Labs: 04/03/18 08:49 04/03/18 08:49 PT 14.1 SECONDS (9.7-12.2) H 03/29/18 10:37 INR 1.3 03/29/18 10:37 APTT 34 SECONDS (21-34) 03/29/18 10:37 - Constitutional Appears: No Acute Distress - Head Exam Head Exam: ATRAUMATIC, NORMOCEPHALIC - Eye Exam Eye Exam: EOMI, Normal appearance - ENT Exam ENT Exam: Mucous Membranes Moist - Respiratory Exam Respiratory Exam: Clear to Ausculation Bilateral, NORMAL BREATHING PATTERN - Cardiovascular Exam Cardiovascular Exam: REGULAR RHYTHM, +S1, +S2 - GI/Abdominal Exam GI & Abdominal Exam: Soft. absent: Tenderness - Neurological Exam Neurological Exam: Alert, Awake, Oriented x3 - Psychiatric Exam Psychiatric exam: Normal Affect, Normal Mood - Skin Skin Exam: Dry, Warm Assessment and Plan - Assessment and Plan (Free Text) Plan: Epigastric pain with acute diarrhea in the setting of Chronic NSAID use GI consult placed to Dr. Kishan Stone appreciated -Continue supportive care -Continue Abx per ID for CAP and prophylaxis. Avoid Doxy PO (Pill esophagitis ) -Stool culture, ova, parasites PENDING -F/U Stool Ag tests. C. Diff negative. -Monitor Hb closely. Transfuse to maintain Hb greater than 7. -PPI BID IV -Avoid NSAIDs, Anticoag. -Clinical picture and imaging concerning for significant distal esophagitis and ?infectious colitis. -Endoscopic procedures per clinical course. She ate this AM and procedure not emergent at this time, but we will continue to follow closely. ID consult placed to Dr. Carlyn Stone appreciated CEFTRIAXONE 1 G IV ONCE A DAY DAILY. 03/29/18 BACTRIM 240 MG IV PIGGYBACK EVERY 12 HOURLY. 03/29/18. DOXYCYCLINE 100MG IV [id number] FOR ATYPICAL ORGANISMS 03/30/18 Enteric precautions/airborne precautions Hx of Esophageal ulcer Stool occult blood + Stool leukocytes negative Stool Cx- negative C. Diff negative UCx negative Blood Cx NGTD ESR [address] Abdomen/Pelvis- Right Biliary intrahepatic dilation, Mural thickening of distal esophagus, non-specific colitis Maalox 10mL PO TID prn indigestion 1T PO TID prn indigestion Zofran 4mg IV q8hrs prn nausea/vomiting Patient is no longer experiencing abdominal pain, diarrhea She has been afebrile >24hrs Pneumonia- CAP ID consult placed to Dr. Carlyn Stone appreciated CEFTRIAXONE 1 G IV ONCE A DAY DAILY. started 03/29/18 BACTRIM 240 MG IV PIGGYBACK EVERY 12 HOURLY. started 03/29/18. ADD IV DOXYCYCLINE 100MG IV [id number] FOR ATYPICAL ORGANISMS started 03/30/18 Enteric precautions/airborne precautions Sputum cx- Normal Aydee CXR no active disease CT chest: TYRELL infiltrate; RLL opacity TB- negative Legionella- negative Mycoplasma- negative GBS- negative Afebrile >24hrs Elevated D-Dimer 494 CTA- negative Anemia Hemoglobin 9.9 04/03/18- continue to monitor; stable Folate 1mg PO daily Asthma Ventolin 90mcg 2puff q6hr Duonebs q6hrs HIV, noncompliant with meds at home HIV1 RNA- 4.96 CD4 8 Absolute CD4 87 %CD8 62 Absolute CD8 637 Cryptococcus ag- negative WBC 3.0 04/03/18 Tivicay 50mg PO daily Truvada 200mg-300mg PO daily Anxiety/Depression Lexapro 20mg PO daily Haldol 2mg PO daily PPX Protonix 40mg IV daily Zofran 4mg IV prn nausea/vomiting Case discussed with Dr. Ramon Aly D.O. <Jarek Navarro - Last Filed: 04/04/18 21:33> Objective - Vital Signs/Intake and Output Vital Signs (last 24 hours): Temp Pulse Resp BP Pulse Ox 98.3 F 90 20 106/66 98 04/04/18 15:30 04/04/18 15:30 04/04/18 15:30 04/04/18 15:30 04/04/18 15:30 - Medications Medications: Current Medications Al Hydrox/Mg Hydrox/Simethicone (Maalox 30 Ml) 10 ml PO TID PRN PRN Reason: Indigestion / Heartburn Last Admin: 04/01/18 00:46 Dose: 10 ml Albuterol (Ventolin Hfa 90 Mcg/Actuation (8 G)) 2 puff IH RQ6 [facility] Last Admin: 04/04/18 20:13 Dose: 2 puff Albuterol/Ipratropium (Duoneb 3 Mg/0.5 Mg (3 Ml) Ud) 3 ml INH RQ6 PRN PRN Reason: Shortness of Breath Belladonna/Phenobarbital () 1 tab PO TID PRN PRN Reason: Indigestion / Heartburn Last Admin: 04/01/18 16:20 Dose: 1 tab Benztropine Mesylate (Cogentin) 0.5 mg PO DAILY [facility] Last Admin: 04/04/18 09:56 Dose: 0.5 mg Dolutegravir Sodium (Tivicay) 50 mg PO DAILY [facility] PRN Reason: Protocol Emtricitabine/Tenofovir (Truvada 200 Mg-300 Mg) 1 tab PO DAILY [facility] PRN Reason: Protocol Ergocalciferol (Drisdol 50,000 Intl Units Cap) 1 cap PO QWK [facility] Last Admin: 04/02/18 11:34 Dose: 1 cap Escitalopram Oxalate (Lexapro) 20 mg PO DAILY [facility] Last Admin: 04/04/18 09:56 Dose: 20 mg Folic Acid (Folic Acid) 1 mg PO DAILY [facility] Last Admin: 04/04/18 09:56 Dose: 1 mg Haloperidol (Haldol) 2 mg PO DAILY [facility] Last Admin: 04/04/18 09:56 Dose: 2 mg Ceftriaxone Sodium 1 gm/ (Sodium Chloride) 100 mls @ 100 mls/hr IVPB Q24H [facility] PRN Reason: Protocol Last Admin: 04/04/18 16:13 Dose: 100 mls/hr Ondansetron HCl (Zofran Inj) 4 mg IVP Q8 PRN PRN Reason: Nausea/Vomiting Last Admin: 04/02/18 00:10 Dose: 4 mg Pantoprazole Sodium (Protonix Inj) 40 mg IVP Q12H [facility] Last Admin: 04/04/18 10:19 Dose: 40 mg Trimethoprim/Sulfamethoxazole (Bactrim Ds Tab) 1 tab PO Q12H [facility] PRN Reason: Protocol - Labs Labs: 04/04/18 09:30 04/04/18 09:30 PT 14.1 SECONDS (9.7-12.2) H 03/29/18 10:37 INR 1.3 03/29/18 10:37 APTT 34 SECONDS (21-34) 03/29/18 10:37 Attending/Attestation - Attestation I have personally seen and examined this patient.: Yes I have fully participated in the care of the patient.: Yes I have reviewed all pertinent clinical information, including history, physical exam and plan: Yes Notes (Text): Seen and examined by me Lying on bed,no complain 04/04/18 21:32
--- NOTE | 2018-04-03 15:04 | CP.PCM.PN ---
Subjective - Date & Time of Evaluation Date of Evaluation: 04/03/18 Time of Evaluation: 15:04 - Subjective Subjective: CHIEF COMPLAINTS TODAY : afebrile, DENIES SOB +VE OCCASIONAL COUGH ABDOMINAL PAIN IMPROVING . NO N/V dENIES FURTHER HEADACHES ROS. HEENT : N. Resp : No SOB wheezing, + DRY COUGH Cardio : No CP, PND orthopnea GI : +VE ABD.PAIN, [employer]ING [employer]INTE[employer]CE CUSTODIAN : No headache , focal deficit. Musculoskel : N Ext. : Pedal pulses intact, no edema or calf pain Derm : N Psych : N. PE. Pt. is alert awake in no distress. V.S As noted in the chart Head ,ear nose,throat and eyes : Normal. Neck : Supple with normal carotids. Lungs: RHONCHI LT UPPER LUNG POSTERIORLY/AND RT.LL Heart : S1 & S2 normal . . No murmur. S4 + Abd : SOFT+ MILD EPIGASTRIC TENDERNESS with normal bowel sounds. Neuro : Moves all ext. with no localized deficit. Ext : No edema with intact pulses. Neg. calf tenderness Derm : No rashes or decubitus ulcer. Radiology/Labs HIV 1-RNA PCR QT LEVEL 4.96 -HIGH CD4 COUNT 87 LOW CD4/CD8 0.14 CRYPT ANTIGEN SERUM- NEGATIVE ESR 55 STOOL +VE OB STOOL -C.DIFFICILE -VE LEUKOCYTES. CT CHEST W IV CONTRAST -VE PE TYRELL/LML&RLL INFIL E TREE/BUD APPEARANCE QUANTIFERON GOLD TB TEST- NEGATIVE CT ABD/PELVIS W IV/PO CONTRAST 04/02/18 REVIEWED. Thickening of distal esophagus. Biliary dilatation right lobe of the liver, with coarse calcifications in the liver consistent with granulomas. Mural thickening ascending colon/hepatic flexure/transverse colon ? Colitis. Circumferential thickening second portion of duodenum. Asssessment : B/L PNEUMONIA ?CAP CS ATYPICAL R/O NTM INFECTION ABDOMINAL PAIN .+VE GI BLEEDING R/O ULCER VS GI MALIGNANCY VS ESOPHAGITIS HIV+VE .NONCOMPLIANT HEADACHES ?HX OF MIGRAINES DEPRESSION Plan : SPUTUM FOR AFB DAILY X 3 DAYS ( MORNING SPECIMEN )-P IF ALL 3 SPUTUM SMEARS -VE MAY DC ISOLATION CONTINUE iv CEFTRIAXONE 1 G ONCE A DAY DAILY. 03/29/18 CONTINUE iv BACTRIM 240 MG TMP/SMX iv PIGGYBACK EVERY 12 HOURLY. 03/29/18. DC IV DOXYCYCLINE 100MG IV [id number] FOR ATYPICAL ORGANISMS 03/30/18 -04/03/18 GI W/U OUTLINED BY GI TB W/U IN PROGRESS DISCUSSED WITH PATIENT HER HIGH VIRAL LOAD AND LOW cd4 COUNTS. pATIENT STATES SHE IS NONCOMPLIANT WITH HER ANTIRETROVIRAL THERAPY. EXPLAINED TO HER THAT SHE WILL DEVELOP RESISTANCE TO HER MEDICATIONS. AGREES TO FOLLOW-UP WITH HER ID [facility] AT [facility] ON DISCHARGE. ENTERIC PRECAUTIONS/ AIR BORNE PRECAUTIONS OUTLINED Objective - Vital Signs/Intake and Output Vital Signs (last 24 hours): Temp Pulse Resp BP Pulse Ox 98.2 F 69 20 114/70 98 04/03/18 07:00 04/03/18 07:10 04/03/18 07:00 04/03/18 07:00 04/03/18 07:00 Intake and Output: 04/03/18 04/03/18 06:59 18:59 Intake Total 720 Balance 720 - Medications Medications: Current Medications Al Hydrox/Mg Hydrox/Simethicone (Maalox 30 Ml) 10 ml PO TID PRN PRN Reason: Indigestion / Heartburn Last Admin: 04/01/18 00:46 Dose: 10 ml Albuterol (Ventolin Hfa 90 Mcg/Actuation (8 G)) 2 puff IH RQ6 [facility] Last Admin: 04/03/18 13:20 Dose: 2 puff Albuterol/Ipratropium (Duoneb 3 Mg/0.5 Mg (3 Ml) Ud) 3 ml INH RQ6 [facility] Last Admin: 04/03/18 13:20 Dose: Not Given Belladonna/Phenobarbital () 1 tab PO TID PRN PRN Reason: Indigestion / Heartburn Last Admin: 04/01/18 16:20 Dose: 1 tab Benztropine Mesylate (Cogentin) 0.5 mg PO DAILY [facility] Last Admin: 04/03/18 09:59 Dose: 0.5 mg Dolutegravir Sodium (Tivicay) 50 mg PO DAILY [facility] PRN Reason: Protocol Last Admin: 04/03/18 09:59 Dose: 50 mg Emtricitabine/Tenofovir (Truvada 200 Mg-300 Mg) 1 tab PO DAILY [facility] PRN Reason: Protocol Last Admin: 04/03/18 09:59 Dose: 1 tab Ergocalciferol (Drisdol 50,000 Intl Units Cap) 1 cap PO QWK [facility] Last Admin: 04/02/18 11:34 Dose: 1 cap Escitalopram Oxalate (Lexapro) 20 mg PO DAILY [facility] Last Admin: 04/03/18 09:59 Dose: 20 mg Folic Acid (Folic Acid) 1 mg PO DAILY [facility] Last Admin: 04/03/18 09:59 Dose: 1 mg Haloperidol (Haldol) 2 mg PO DAILY [facility] Last Admin: 04/03/18 09:59 Dose: 2 mg Trimethoprim/Sulfamethoxazole (240 mg/ Dextrose) 250 mls @ 100 mls/hr IVPB Q12H [facility] PRN Reason: Protocol Last Admin: 04/03/18 09:59 Dose: 100 mls/hr Ceftriaxone Sodium 1 gm/ (Sodium Chloride) 100 mls @ 100 mls/hr IVPB Q24H [facility] PRN Reason: Protocol Last Admin: 04/02/18 15:43 Dose: 100 mls/hr Doxycycline Hyclate 100 mg/ (Sodium Chloride) 100 mls @ 100 mls/hr IVPB Q12H [facility] PRN Reason: Protocol Last Admin: 04/03/18 12:18 Dose: 100 mls/hr Ondansetron HCl (Zofran Inj) 4 mg IVP Q8 PRN PRN Reason: Nausea/Vomiting Last Admin: 04/02/18 00:10 Dose: 4 mg Pantoprazole Sodium (Protonix Inj) 40 mg IVP Q12H [facility] Last Admin: 04/03/18 10:15 Dose: 40 mg - Labs Labs: 04/03/18 08:49 04/03/18 08:49 PT 14.1 SECONDS (9.7-12.2) H 03/29/18 10:37 INR 1.3 03/29/18 10:37 APTT 34 SECONDS (21-34) 03/29/18 10:37 Assessment and Plan (1) Fever Status: Acute (2) Pneumonia Status: Acute (3) Gastroenteritis Status: Acute (4) 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
[2018-04-03 23:53] VITALS: RESP 20
[2018-04-04] MEDS: Albuterol HFA 90 mcg/actuation (8 g) IH SCH ×3 (01:00→20:13)
[2018-04-04 09:39] LABS: BASO % 0.9 % (0.0-2.0); EOS # 0.3 K/uL (0.0-0.7); EOS % 8.5 % (0.0-4.0); HEMOGLOBIN 9.8 g/dL (11.0-16.0); LYMPH % 29.6 % (20.0-40.0); MEAN CELL VOLUME 80.7 fL (81.0-99.0); MEAN CORPUSCULAR HGB CONC 33.4 g/dL (33.0-37.0); MEAN PLATELET VOLUME 8.7 fL (7.2-11.7); MONO # 0.2 K/uL (0.0-0.8); MONO % 6.5 % (0.0-10.0); NEUT # 1.8 K/uL (1.8-7.0); NEUT % 54.5 % (50.0-75.0); NRBC % 0.1 % (0.0-2.0); RBC 3.63 Mil/uL (3.80-5.20); WHITE BLOOD COUNT 3.4 K/uL (4.8-10.8)
[2018-04-04 09:55] LABS: ALB/GLOB RATIO 1.2 (1.0-2.1); ALT/SGPT 26 U/L (9-52); AST/SGOT 15 U/L (14-36); BLOOD UREA NITROGEN 9 mg/dL (7-17); CALCIUM 9.4 mg/dl (8.6-10.4); GFR AFRICAN-AMERICAN > 60; GFR NON-AFRICAN AMERICAN > 60
[2018-04-04] MEDS: Emtricitabine-Tenofovir 200 mg-300 mg Tab PO SCH (09:56)
[2018-04-04] MEDS: Sulfamethoxazole/Trimethoprim 240 MG in Dextrose 5% In Water 250 ML IVPB SCH (09:56)
--- NOTE | 2018-04-04 11:00 | CP.PCM.PN ---
Addendum entered and electronically signed by Alexys Aly 04/04/18 13:27: Patient to go for colonoscopy tomorrow Original Note: <Alexys Aly - Last Filed: 04/04/18 10:53> Subjective - Date & Time of Evaluation Date of Evaluation: 04/04/18 Time of Evaluation: 10:53 - Subjective Subjective: Progress Note for Medicine- Dr. Navarro covering Dr. Reyna Pt seen and examined at bedside. She states that she is well. She denies nausea , vomiting, abdominal pain, diarrhea, constipation. No acute events overnight as per nursing. Objective - Vital Signs/Intake and Output Vital Signs (last 24 hours): Temp Pulse Resp BP Pulse Ox 98.1 F 74 20 107/69 99 04/04/18 07:00 04/04/18 08:02 04/04/18 07:00 04/04/18 07:00 04/04/18 07:00 - Medications Medications: Current Medications Al Hydrox/Mg Hydrox/Simethicone (Maalox 30 Ml) 10 ml PO TID PRN PRN Reason: Indigestion / Heartburn Last Admin: 04/01/18 00:46 Dose: 10 ml Albuterol (Ventolin Hfa 90 Mcg/Actuation (8 G)) 2 puff IH RQ6 [facility] Last Admin: 04/04/18 07:53 Dose: Not Given Belladonna/Phenobarbital () 1 tab PO TID PRN PRN Reason: Indigestion / Heartburn Last Admin: 04/01/18 16:20 Dose: 1 tab Benztropine Mesylate (Cogentin) 0.5 mg PO DAILY [facility] Last Admin: 04/04/18 09:56 Dose: 0.5 mg Ergocalciferol (Drisdol 50,000 Intl Units Cap) 1 cap PO QWK [facility] Last Admin: 04/02/18 11:34 Dose: 1 cap Escitalopram Oxalate (Lexapro) 20 mg PO DAILY [facility] Last Admin: 04/04/18 09:56 Dose: 20 mg Folic Acid (Folic Acid) 1 mg PO DAILY [facility] Last Admin: 04/04/18 09:56 Dose: 1 mg Haloperidol (Haldol) 2 mg PO DAILY [facility] Last Admin: 04/04/18 09:56 Dose: 2 mg Trimethoprim/Sulfamethoxazole (240 mg/ Dextrose) 250 mls @ 100 mls/hr IVPB Q12H [facility] PRN Reason: Protocol Last Admin: 04/04/18 09:56 Dose: 100 mls/hr Ceftriaxone Sodium 1 gm/ (Sodium Chloride) 100 mls @ 100 mls/hr IVPB Q24H [facility] PRN Reason: Protocol Last Admin: 04/03/18 16:07 Dose: 100 mls/hr Ondansetron HCl (Zofran Inj) 4 mg IVP Q8 PRN PRN Reason: Nausea/Vomiting Last Admin: 04/02/18 00:10 Dose: 4 mg Pantoprazole Sodium (Protonix Inj) 40 mg IVP Q12H [facility] Last Admin: 04/04/18 10:19 Dose: 40 mg - Labs Labs: 04/04/18 09:30 04/04/18 09:30 PT 14.1 SECONDS (9.7-12.2) H 03/29/18 10:37 INR 1.3 03/29/18 10:37 APTT 34 SECONDS (21-34) 03/29/18 10:37 - Constitutional Appears: No Acute Distress - Head Exam Head Exam: ATRAUMATIC, NORMOCEPHALIC - Eye Exam Eye Exam: EOMI, Normal appearance - ENT Exam ENT Exam: Mucous Membranes Moist - Respiratory Exam Respiratory Exam: Clear to Ausculation Bilateral, NORMAL BREATHING PATTERN - Cardiovascular Exam Cardiovascular Exam: REGULAR RHYTHM, +S1, +S2 - GI/Abdominal Exam GI & Abdominal Exam: Soft. absent: Tenderness - Neurological Exam Neurological Exam: Alert, Awake, Oriented x3 - Psychiatric Exam Psychiatric exam: Normal Affect, Normal Mood - Skin Skin Exam: Dry, Warm Assessment and Plan - Assessment and Plan (Free Text) Plan: Epigastric pain with acute diarrhea in the setting of Chronic NSAID use GI consult placed to Dr. Braga- Recs appreciated -Continue supportive care -Continue Abx per ID for CAP and prophylaxis. Avoid Doxy PO (Pill esophagitis ) -Stool culture, ova, parasites PENDING -F/U Stool Ag tests. C. Diff negative. -Monitor Hb closely. Transfuse to maintain Hb greater than 7. -PPI BID IV -Avoid NSAIDs, Anticoag. -Clinical picture and imaging concerning for significant distal esophagitis and ?infectious colitis. -Endoscopic procedures per clinical course. She ate this AM and procedure not emergent at this time, but we will continue to follow closely. ID consult placed to Dr. Carlyn Stone appreciated Ceftriaxone 1g IV QD. started 03/29/18 Bactrim 240mg IV q12hrs. started 03/29/18. Doxycycline 100mg IV q12hrs started 03/30/18- DISCONTINUED ON 04/03/18 Enteric precautions/airborne precautions- to be discontinued once sputum cx is negative for TB Hx of Esophageal ulcer Stool occult blood + Stool leukocytes negative Stool Cx- negative C. Diff negative UCx negative Blood Cx NGTD ESR [address] Abdomen/Pelvis- Right Biliary intrahepatic dilation, Mural thickening of distal esophagus, non-specific colitis Maalox 10mL PO TID prn indigestion 1T PO TID prn indigestion Zofran 4mg IV q8hrs prn nausea/vomiting Patient is no longer experiencing abdominal pain, diarrhea She has been afebrile >24hrs Pneumonia- CAP ID consult placed to Dr. Carlyn Stone appreciated Ceftriaxone 1g IV QD. started 03/29/18 Bactrim 240mg IV q12hrs. started 03/29/18. Doxycycline 100mg IV q12hrs started 03/30/18- DISCONTINUED ON 04/03/18 Enteric precautions/airborne precautions- to be discontinued once sputum cx is negative for TB Mycobacterium Cx x3- follow up results Sputum cx- Normal Aydee CXR no active disease CT chest: TYRELL infiltrate; RLL opacity TB- negative Legionella- negative Mycoplasma- negative GBS- negative Afebrile >24hrs Elevated D-Dimer 494 CTA- negative Anemia Hemoglobin 9.9 04/03/18- continue to monitor; stable Folate 1mg PO daily Asthma Ventolin 90mcg 2puff q6hr Duonebs q6hrs HIV, noncompliant with meds at home HIV1 RNA- 4.96 CD4 8 Absolute CD4 87 %CD8 62 Absolute CD8 637 Cryptococcus ag- negative WBC 3.0 04/03/18 Tivicay 50mg PO daily Truvada 200mg-300mg PO daily Anxiety/Depression Lexapro 20mg PO daily Haldol 2mg PO daily PPX Protonix 40mg IV daily Zofran 4mg IV prn nausea/vomiting This patient is awaiting sputum cx's to be cleared for any possible TB infection. We will continue with necessary precautions until results are obtained. Case discussed with Dr. Ramon Aly D.O. <Jarek Navarro - Last Filed: 04/04/18 21:33> Objective - Vital Signs/Intake and Output Vital Signs (last 24 hours): Temp Pulse Resp BP Pulse Ox 98.3 F 90 20 106/66 98 04/04/18 15:30 04/04/18 15:30 04/04/18 15:30 04/04/18 15:30 04/04/18 15:30 - Medications Medications: Current Medications Al Hydrox/Mg Hydrox/Simethicone (Maalox 30 Ml) 10 ml PO TID PRN PRN Reason: Indigestion / Heartburn Last Admin: 04/01/18 00:46 Dose: 10 ml Albuterol (Ventolin Hfa 90 Mcg/Actuation (8 G)) 2 puff IH RQ6 [facility] Last Admin: 04/04/18 20:13 Dose: 2 puff Albuterol/Ipratropium (Duoneb 3 Mg/0.5 Mg (3 Ml) Ud) 3 ml INH RQ6 PRN PRN Reason: Shortness of Breath Belladonna/Phenobarbital () 1 tab PO TID PRN PRN Reason: Indigestion / Heartburn Last Admin: 04/01/18 16:20 Dose: 1 tab Benztropine Mesylate (Cogentin) 0.5 mg PO DAILY [facility] Last Admin: 04/04/18 09:56 Dose: 0.5 mg Dolutegravir Sodium (Tivicay) 50 mg PO DAILY [facility] PRN Reason: Protocol Emtricitabine/Tenofovir (Truvada 200 Mg-300 Mg) 1 tab PO DAILY [facility] PRN Reason: Protocol Ergocalciferol (Drisdol 50,000 Intl Units Cap) 1 cap PO QWK [facility] Last Admin: 04/02/18 11:34 Dose: 1 cap Escitalopram Oxalate (Lexapro) 20 mg PO DAILY [facility] Last Admin: 04/04/18 09:56 Dose: 20 mg Folic Acid (Folic Acid) 1 mg PO DAILY [facility] Last Admin: 04/04/18 09:56 Dose: 1 mg Haloperidol (Haldol) 2 mg PO DAILY [facility] Last Admin: 04/04/18 09:56 Dose: 2 mg Ceftriaxone Sodium 1 gm/ (Sodium Chloride) 100 mls @ 100 mls/hr IVPB Q24H [facility] PRN Reason: Protocol Last Admin: 04/04/18 16:13 Dose: 100 mls/hr Ondansetron HCl (Zofran Inj) 4 mg IVP Q8 PRN PRN Reason: Nausea/Vomiting Last Admin: 04/02/18 00:10 Dose: 4 mg Pantoprazole Sodium (Protonix Inj) 40 mg IVP Q12H [facility] Last Admin: 04/04/18 10:19 Dose: 40 mg Trimethoprim/Sulfamethoxazole (Bactrim Ds Tab) 1 tab PO Q12H [facility] PRN Reason: Protocol - Labs Labs: 04/04/18 09:30 04/04/18 09:30 PT 14.1 SECONDS (9.7-12.2) H 03/29/18 10:37 INR 1.3 03/29/18 10:37 APTT 34 SECONDS (21-34) 03/29/18 10:37 Attending/Attestation - Attestation I have personally seen and examined this patient.: Yes I have fully participated in the care of the patient.: Yes I have reviewed all pertinent clinical information, including history, physical exam and plan: Yes
[2018-04-04] MEDS ORDERED: Albuterol-Ipratrop 3 mg / 0.5 (3 ml) UD INH PRN (11:01)
[2018-04-04] MEDS: Tmp-Smz 800 mg-160 mg DS Tab PO SCH (21:40)
[2018-04-05] MEDS: Albuterol HFA 90 mcg/actuation (8 g) IH SCH ×3 (02:44→13:13)
[2018-04-05 07:52] VITALS: BP 107/72; PULSE 77; TEMP 97.9; O2SAT 98
[2018-04-05 08:09] LABS: BASO % 0.8 % (0.0-2.0); EOS # 0.3 K/uL (0.0-0.7); EOS % 7.6 % (0.0-4.0); HEMOGLOBIN 10.7 g/dL (11.0-16.0); LYMPH # 1.1 K/uL (1.0-4.3); LYMPH % 31.5 % (20.0-40.0); MEAN CELL VOLUME 81.2 fL (81.0-99.0); MEAN CORPUSCULAR HEMOGLOBIN 27.4 pg (27.0-31.0); MEAN CORPUSCULAR HGB CONC 33.7 g/dL (33.0-37.0); MEAN PLATELET VOLUME 8.6 fL (7.2-11.7); MONO # 0.3 K/uL (0.0-0.8); MONO % 7.4 % (0.0-10.0); NEUT # 1.8 K/uL (1.8-7.0); NEUT % 52.7 % (50.0-75.0); NRBC % 0.3 % (0.0-2.0); RBC 3.9 Mil/uL (3.80-5.20); RED CELL DISTRIBUTION WIDTH 17.5 % (11.5-14.5); WHITE BLOOD COUNT 3.4 K/uL (4.8-10.8)
[2018-04-05 08:34] LABS: ALB/GLOB RATIO 1.2 (1.0-2.1); ALBUMIN 4.3 g/dL (3.5-5.0); ALT/SGPT 26 U/L (9-52); AST/SGOT 22 U/L (14-36); BLOOD UREA NITROGEN 11 mg/dL (7-17); CALCIUM 9.9 mg/dl (8.6-10.4); GFR AFRICAN-AMERICAN > 60; GFR NON-AFRICAN AMERICAN > 60
[2018-04-05] MEDS: Tmp-Smz 800 mg-160 mg DS Tab PO SCH (09:54)
[2018-04-05] MEDS ORDERED: Emtricitabine-Tenofovir 200 mg-300 mg Tab PO SCH (10:00)
--- NOTE | 2018-04-05 14:01 | CP.PCM.PN ---
Subjective - Date & Time of Evaluation Date of Evaluation: 04/05/18 Time of Evaluation: 14:01 - Subjective Subjective: CHIEF COMPLAINTS TODAY : afebrile, DENIES SOB OCCASIONAL COUGH ABDOMINAL PAIN IMPROVING . NO N/V dENIES FURTHER HEADACHES ROS. HEENT : N. 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 Musculoskel : N Ext. : Pedal pulses intact, no edema or calf pain Derm : N Psych : N. PE. Pt. is alert awake in no distress. V.S As noted in the chart Head ,ear nose,throat and eyes : Normal. Neck : Supple with normal carotids. Lungs: clearing Heart : S1 & S2 normal . . No murmur. S4 + Abd : SOFT+ MILD EPIGASTRIC TENDERNESS with normal bowel sounds. Neuro : Moves all ext. with no localized deficit. Ext : No edema with intact pulses. Neg. calf tenderness Derm : No rashes or decubitus ulcer. Radiology/Labs HIV 1-RNA PCR QT LEVEL 4.96 -HIGH CD4 COUNT 87 LOW CD4/CD8 0.14 CRYPT ANTIGEN SERUM- NEGATIVE ESR 55 STOOL +VE OB STOOL -C.DIFFICILE -VE LEUKOCYTES. CT CHEST W IV CONTRAST -VE PE TYRELL/LML&RLL INFIL E TREE/BUD APPEARANCE QUANTIFERON GOLD TB TEST- NEGATIVE CT ABD/PELVIS W IV/PO CONTRAST 04/02/18 REVIEWED. Thickening of distal esophagus. Biliary dilatation right lobe of the liver, with coarse calcifications in the liver consistent with granulomas. Mural thickening ascending colon/hepatic flexure/transverse colon ? Colitis. Circumferential thickening second portion of duodenum. Asssessment : B/L PNEUMONIA ?CAP CS ATYPICAL R/O NTM INFECTION ABDOMINAL PAIN .+VE GI BLEEDING R/O ULCER VS GI MALIGNANCY VS ESOPHAGITIS HIV+VE .NONCOMPLIANT HEADACHES ?HX OF MIGRAINES DEPRESSION Plan : SPUTUM FOR AFB DAILY X 3 DAYS ( MORNING SPECIMEN -ve IF ALL 3 SPUTUM SMEARS -VE MAY DC ISOLATION IV INFILTRATED04/04/18. DC IV ALL ABX SWITCH TO PO BACTRIM 1DS PO BID X 10 DAYS F/U BY PO BACTRIM 1 DS PO MWF PT WILL NEED PO ZITHROMAX 1200MG WEEKLY FOR MAC PROPHYLAXIS DISCUSSED WITH PATIENT HER HIGH VIRAL LOAD AND LOW cd4 COUNTS. pATIENT STATES SHE IS NONCOMPLIANT WITH HER ANTIRETROVIRAL THERAPY. EXPLAINED TO HER THAT SHE WILL DEVELOP RESISTANCE TO HER MEDICATIONS. AGREES TO FOLLOW-UP WITH HER ID THOMASAN AT [facility] [place] ON DISCHARGE. Objective - Vital Signs/Intake and Output Vital Signs (last 24 hours): Temp Pulse Resp BP Pulse Ox 97.9 F 77 20 107/72 98 04/05/18 07:51 04/05/18 07:51 04/05/18 07:51 04/05/18 07:51 04/05/18 07:51 Intake and Output: 04/05/18 04/05/18 06:59 18:59 Intake Total 240 Balance 240 - Medications Medications: Current Medications Al Hydrox/Mg Hydrox/Simethicone (Maalox 30 Ml) 10 ml PO TID PRN PRN Reason: Indigestion / Heartburn Last Admin: 04/01/18 00:46 Dose: 10 ml Albuterol (Ventolin Hfa 90 Mcg/Actuation (8 G)) 2 puff IH RQ6 [facility] Last Admin: 04/05/18 13:13 Dose: Not Given Albuterol/Ipratropium (Duoneb 3 Mg/0.5 Mg (3 Ml) Ud) 3 ml INH RQ6 PRN PRN Reason: Shortness of Breath Belladonna/Phenobarbital () 1 tab PO TID PRN PRN Reason: Indigestion / Heartburn Last Admin: 04/01/18 16:20 Dose: 1 tab Benztropine Mesylate (Cogentin) 0.5 mg PO DAILY [facility] Last Admin: 04/05/18 09:54 Dose: 0.5 mg Dolutegravir Sodium (Tivicay) 50 mg PO DAILY [facility] PRN Reason: Protocol Last Admin: 04/05/18 09:53 Dose: 50 mg Emtricitabine/Tenofovir (Truvada 200 Mg-300 Mg) 1 tab PO DAILY [facility] PRN Reason: Protocol Last Admin: 04/05/18 09:53 Dose: 1 tab Ergocalciferol (Drisdol 50,000 Intl Units Cap) 1 cap PO QWK [facility] Last Admin: 04/02/18 11:34 Dose: 1 cap Escitalopram Oxalate (Lexapro) 20 mg PO DAILY [facility] Last Admin: 04/05/18 09:53 Dose: 20 mg Folic Acid (Folic Acid) 1 mg PO DAILY [facility] Last Admin: 04/05/18 09:53 Dose: 1 mg Haloperidol (Haldol) 2 mg PO DAILY [facility] Last Admin: 04/05/18 09:53 Dose: 2 mg Ceftriaxone Sodium 1 gm/ (Sodium Chloride) 100 mls @ 100 mls/hr IVPB Q24H [facility] PRN Reason: Protocol Last Admin: 04/04/18 16:13 Dose: 100 mls/hr Ondansetron HCl (Zofran Inj) 4 mg IVP Q8 PRN PRN Reason: Nausea/Vomiting Last Admin: 04/02/18 00:10 Dose: 4 mg Pantoprazole Sodium (Protonix Inj) 40 mg IVP Q12H [facility] Last Admin: 04/05/18 10:40 Dose: 40 mg Trimethoprim/Sulfamethoxazole (Bactrim Ds Tab) 1 tab PO Q12H [facility] PRN Reason: Protocol Last Admin: 04/05/18 09:54 Dose: 1 tab - Labs Labs: 04/05/18 07:57 04/05/18 07:57 PT 14.1 SECONDS (9.7-12.2) H 03/29/18 10:37 INR 1.3 03/29/18 10:37 APTT 34 SECONDS (21-34) 03/29/18 10:37 Assessment and Plan (1) Fever Status: Acute (2) Pneumonia Status: Acute (3) Gastroenteritis Status: Acute (4) 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
--- NOTE | 2018-04-05 14:37 | CP.PCM.DIS ---
<Blaire Payne - Last Filed: 04/05/18 16:01> Provider - Provider Date of Admission: 03/29/18 12:03 Attending physician: Lucy Reyna MD Time Spent in preparation of Discharge (in minutes): 60 Diagnosis - Discharge Diagnosis (1) GI bleed due to NSAIDs Status: Acute Hospital Course - Lab Results Lab Results: Micro Results 04/02/18 20:42 Stool Ova and Parasite Concentrate Exam - Final 04/02/18 20:42 Stool Stool Culture - Final NO SALMONELLA, SHIGELLA OR CAMPYLOBACTER ISOLATED. 04/02/18 06:15 Other: Please Indicate Mycobacterial Culture - Preliminary 04/01/18 23:44 Other: Please Indicate Mycobacterial Culture - Preliminary 03/29/18 10:37 Blood Blood Culture - Final NO GROWTH AFTER 5 DAYS 03/29/18 10:37 Blood Gram Stain - Final TEST NOT PERFORMED 03/29/18 10:37 Blood Blood Culture - Final NO GROWTH AFTER 5 DAYS 03/29/18 10:37 Blood Gram Stain - Final TEST NOT PERFORMED 03/31/18 08:09 Sputum Gram Stain - Final 03/31/18 08:09 Sputum Sputum Culture - Final NORMAL ORAL DEANNA 03/31/18 07:50 Other: Please Indicate Mycobacterial Culture - Preliminary 03/30/18 06:58 Stool Stool Culture - Final NO SALMONELLA, SHIGELLA OR CAMPYLOBACTER ISOLATED. 03/29/18 14:29 Naris MRSA Culture (Admit) - Final MRSA NOT DETECTED 03/29/18 10:37 Throat Group A Strep Throat Culture - Final NO BETA STREP GROUP A ISOLATED. 03/29/18 11:54 Urine,Catheterized Urine Culture - Final No Growth (<1,000 CFU/ML) Most Recent Lab Values WBC 3.4 K/uL (4.8-10.8) L 04/05/18 07:57 RBC 3.90 Mil/uL (3.80-5.20) 04/05/18 07:57 Hgb 10.7 g/dL (11.0-16.0) L 04/05/18 07:57 Hct 31.7 % (34.0-47.0) L 04/05/18 07:57 MCV 81.2 fL (81.0-99.0) 04/05/18 07:57 MCH 27.4 pg (27.0-31.0) 04/05/18 07:57 MCHC 33.7 g/dL (33.0-37.0) 04/05/18 07:57 RDW 17.5 % (11.5-14.5) H 04/05/18 07:57 Plt Count 256 K/uL (130-400) 04/05/18 07:57 MPV 8.6 fL (7.2-11.7) 04/05/18 07:57 Neut % (Auto) 52.7 % (50.0-75.0) 04/05/18 07:57 Lymph % (Auto) 31.5 % (20.0-40.0) 04/05/18 07:57 [place] % (Auto) 7.4 % (0.0-10.0) 04/05/18 07:57 Eos % (Auto) 7.6 % (0.0-4.0) H 04/05/18 07:57 Baso % (Auto) 0.8 % (0.0-2.0) 04/05/18 07:57 Neut # (Auto) 1.8 K/uL (1.8-7.0) 04/05/18 07:57 Lymph # (Auto) 1.1 K/uL (1.0-4.3) 04/05/18 07:57 [place] # (Auto) 0.3 K/uL (0.0-0.8) 04/05/18 07:57 Eos # (Auto) 0.3 K/uL (0.0-0.7) 04/05/18 07:57 Baso # (Auto) 0.0 K/uL (0.0-0.2) 04/05/18 07:57 Differential Comment 03/29/18 10:37 ESR 55 mm/hr (0-20) H 03/29/18 14:29 G6PD RBC Count 20.0 U/g HGB (7.0-20.5) 03/30/18 08:23 PT 14.1 SECONDS (9.7-12.2) H 03/29/18 10:37 INR 1.3 03/29/18 10:37 APTT 34 SECONDS (21-34) 03/29/18 10:37 D-Dimer, Quantitative 494 ng/mlDDU (0-243) H 03/30/18 08:23 pO2 39 mm/Hg (30-55) 03/29/18 13:25 VBG pH 7.37 (7.32-7.43) 03/29/18 13:25 VBG pCO2 35 mmHg (40-60) L 03/29/18 13:25 VBG HCO3 20.8 mmol/L 03/29/18 13:25 VBG Total CO2 21.3 mmol/L (22-28) L 03/29/18 13:25 VBG O2 Sat (Calc) 77.9 % (40-65) H 03/29/18 13:25 VBG Base Excess -4.4 mmol/L (0.0-2.0) L 03/29/18 13:25 VBG Potassium 3.1 mmol/L (3.6-5.2) L 03/29/18 13:25 A-a O2 Difference 67.0 mm/Hg 03/29/18 13:25 Sodium 137.0 mmol/l (132-148) 03/29/18 13:25 Chloride 108.0 mmol/L (98-107) H 03/29/18 13:25 Glucose 128 mg/dl (65-105) H 03/29/18 13:25 Lactate 0.8 mmol/L (0.7-2.1) 03/29/18 13:25 FiO2 21.0 % 03/29/18 13:25 Crit Value Called To Er physician 03/29/18 13:25 Crit Value Called By Des 03/29/18 13:25 Crit Value Read Back Y 03/29/18 13:25 Blood Gas Notified Time 1330 03/29/18 13:25 Sodium 141 mmol/L (132-148) 04/05/18 07:57 Potassium 4.8 mmol/L (3.6-5.2) 04/05/18 07:57 Chloride 101 mmol/L (98-107) 04/05/18 07:57 Carbon Dioxide 25 mmol/L (22-30) 04/05/18 07:57 Anion Gap 19 (10-20) 04/05/18 07:57 BUN 11 mg/dL (7-17) 04/05/18 07:57 Creatinine 0.7 mg/dL (0.7-1.2) 04/05/18 07:57 Est GFR ( Amer) > 60 04/05/18 07:57 Est GFR (Non-Af Amer) > 60 04/05/18 07:57 Random Glucose 92 mg/dL (65-105) 04/05/18 07:57 Calcium 9.9 mg/dl (8.6-10.4) 04/05/18 07:57 Magnesium 2.1 mg/dL (1.6-2.3) 03/31/18 08:11 Total Bilirubin 0.3 mg/dL (0.2-1.3) 04/05/18 07:57 AST 22 U/L (14-36) 04/05/18 07:57 ALT 26 U/L (9-52) 04/05/18 07:57 Alkaline Phosphatase 123 U/L (38-126) 04/05/18 07:57 Lactate Dehydrogenase 384 U/L (313-618) 03/29/18 11:48 Troponin I < 0.0120 ng/mL (0.00-0.120) 03/29/18 10:37 C-Reactive Protein 151.30 mg/L (0.0-9.9) H 03/30/18 08:23 Total Protein 7.8 g/dL (6.3-8.3) 04/05/18 07:57 Albumin 4.3 g/dL (3.5-5.0) 04/05/18 07:57 Globulin 3.5 gm/dL (2.2-3.9) 04/05/18 07:57 Albumin/Globulin Ratio 1.2 (1.0-2.1) 04/05/18 07:57 Procalcitonin 0.89 NG/ML (0.19-0.49) H 03/30/18 08:23 Venous Blood Potassium 3.1 mmol/L (3.6-5.2) L 03/29/18 13:25 Urine Color Yellow (YELLOW) 03/29/18 11:54 Urine Clarity Clear (Clear) 03/29/18 11:54 Urine pH 5.0 (5.0-8.0) 03/29/18 11:54 Ur Specific [place] 1.019 (1.003-1.030) 03/29/18 11:54 Urine Protein Negative mg/dL (NEGATIVE) 03/29/18 11:54 Urine Glucose (UA) Normal mg/dL (Normal) 03/29/18 11:54 Urine Ketones Negative mg/dL (NEGATIVE) 03/29/18 11:54 Urine Blood Negative (NEGATIVE) 03/29/18 11:54 Urine Nitrate Negative (NEGATIVE) 03/29/18 11:54 Urine Bilirubin Negative (NEGATIVE) 03/29/18 11:54 Urine Urobilinogen Normal mg/dL (0.2-1.0) 03/29/18 11:54 Ur Leukocyte Esterase Neg Pete/uL (Negative) 03/29/18 11:54 Urine WBC (Auto) 1 /hpf (0-5) 03/29/18 11:54 Urine RBC (Auto) 1 /hpf (0-3) 03/29/18 11:54 Urine HCG, Qual Negative (NEGATIVE) 03/30/18 01:21 Stool Occult Blood Positive (NEGATIVE) H 03/31/18 21:32 Stool Leukocytes, Qual Negative (NEGATIVE) 03/29/18 22:41 Urine Opiates Screen Negative (NEGATIVE) 03/29/18 11:54 Urine Methadone Screen Negative (NEGATIVE) 03/29/18 11:54 Ur Barbiturates Screen Negative (NEGATIVE) 03/29/18 11:54 Ur Phencyclidine Scrn Negative (NEGATIVE) 03/29/18 11:54 Ur Amphetamines Screen Negative (NEGATIVE) 03/29/18 11:54 U Benzodiazepines Scrn Negative (NEGATIVE) 03/29/18 11:54 U Oth Cocaine Metabols Negative (NEGATIVE) 03/29/18 11:54 U Cannabinoids Screen Negative (NEGATIVE) 03/29/18 11:54 Absolute Lymphs (Flow) 1029 Cells/mcL (850-3900) 03/29/18 14:29 % CD4 Cells 8 Percent (30-61) L 03/29/18 14:29 Absolute CD4 Count 87 Cells/mcL (490-1740) L 03/29/18 14:29 T-Help/Suppress Ratio 0.14 Ratio (0.86-5.00) L 03/29/18 14:29 % CD8 Cells 62 Percent (12-42) H 03/29/18 14:29 Absolute CD8 Count 637 Cells/mcL (180-1170) 03/29/18 14:29 C. difficile Ag & Toxin Negative (NEGATIVE) 03/30/18 06:33 Cryptococcus Ag Negative (NEGATIVE) 03/31/18 08:11 HIV-1 RNA Qnt (RT-PCR) 4.96 (Not Detected) H 03/30/18 08:23 Ur L.pneumophila Ag Negative (NEGATIVE) 03/29/18 14:29 Mycoplasma pneumon IgM Negative (NEGATIVE) 03/29/18 14:29 Grp A Beta Strep Ag Negative (NEGATIVE) 03/29/18 10:37 TB Test (QFT) Nil 0.07 IU/mL 03/31/18 08:11 TB Test Mitogen - Nil 2.17 IU/mL 03/31/18 08:11 TB Test TB - Nil <0.00 IU/mL 03/31/18 08:11 TB Test (QFT) Negative (Negative) 03/31/18 08:11 - Hospital Course Hospital Course: 52 year old female PMH of HIV, major depression, come in for evaluation of fever , malaise, body aches gradually developed since yesterday associated with dry cough, left sided chest pain. Patient reports chest pain is localized over left anterior chest wall, reproducible, worse with movement. Otherwise, denies headache, dizziness, lethargy, drooling or sore throat, neck pain, rash, SOB, dyspnea, wheezing, palpitation, diaphoresis, abd. pain, N/V/D, UTI sx, denies recent travel or known sick contact. At the time of evaluation, pt is AAO#3, appears in pain. CXR showed no active disease. Chest CT showed no pulmonary embolus, but did show a left upper lobe infiltrate, small focus of medial left lower lobe infiltrate, and peripheral right lower lobe tree-in-bud opacities. She was started on empiric antibiotics: Doxycycline, Ceftriaxone, and Bactrim. The doxycycline was stopped to to risk of pill esophagitis. With cessation of NSAIDs , patient experienced less and less pain and diarhea. Abdominal and Pelvic CT showed biliary dilation of the right lobe of the liver, possibly related to her history of cholecystectomy. It also showed trace ascites and bilateral pleural effusion and mild hepatosplenomegaly. Stool, urine, and sputum cultures came back negative. It was found that the patient was noncompliant with her HIV medications at home, was given them during this hospital stay and encouraged to take them as prescribed since her absolute TD4 count was 87 on admission. Patient's other chronic issues were well controlled this hospital visit on her home regimen. Primary Diagnosis: Epigastric pain and diarrhea 2/2 Chronic NSAID use, CAP pneumonia Patient is stable for discharge per Dr. Benedict. Patient is to continue all home medications. It is additionally stressed that she must be compliant with her HIV medications. Patient should additionally start the following antibiotics as prescribed: Bactrim DS 1 tab by mouth twice a day Augmentin 875/125 1 tab by mouth twice a day Please follow up with your PMD, Dr. Reyna when he returns. Please follow up with GI, Dr. Braga for outpatient colonoscopy. Please follow up with ID specialist, Dr. Alva, for HIV care. Plan was discussed with patient who understood and agrees. This is a summary of the hospital course. Please refer to the EMR for more details. - Date & Time of H&P Date of H&P: 04/05/18 Time of H&P: 11:05 Discharge Exam - Head Exam Head Exam: ATRAUMATIC, NORMOCEPHALIC - Eye Exam Eye Exam: EOMI, Normal appearance, PERRL - Respiratory Exam Respiratory Exam: Clear to PA & Lateral, NORMAL BREATHING PATTERN, UNREMARKABLE. absent: Rales, Rhonchi, Wheezes - Cardiovascular Exam Cardiovascular Exam: REGULAR RHYTHM, +S1, +S2. absent: Gallop, Rubs, Systolic Murmur - GI/Abdominal Exam GI & Abdominal Exam: Normal Bowel Sounds, Soft. absent: Distended, Firm, Guarding, Tenderness - Extremities Exam Extremities exam: full ROM, pedal pulses present Additional comments: IV in right arm removed prior to discharge - Neurological Exam Neurological exam: Alert, CN II-XII Intact, Oriented x3 - Psychiatric Exam Psychiatric exam: Normal Affect, Normal Mood - Skin Skin Exam: Dry, Intact, Normal Color, Warm Discharge Plan - Discharge Medications Prescriptions: Amoxicillin/Clavulanate [Augmentin 875 MG-125 MG] 1 tab PO BID #14 tab Sulfamethoxazole/Trimethoprim [Bactrim DS Tab] 1 tab PO Q12H #14 tab - Follow Up Plan Condition: STABLE Disposition: HOME/ ROUTINE Instructions: Pneumonia, Adult (DC), Amoxicillin and Clavulanate, Sulfamethoxazole and Trimethoprim Additional Instructions: Patient is stable for discharge per Dr. Benedict. Patient is to continue all home medications. It is additionally stressed that she must be compliant with her HIV medications. Patient should additionally start the following antibiotics as prescribed: Bactrim DS 1 tab by mouth twice a day Augmentin 875/125 1 tab by mouth twice a day Please follow up with your PMD, Dr. Reyna when he returns. Please follow up with GI, Dr. Braga for outpatient colonoscopy. Please follow up with ID specialist, Dr. Alva, for HIV care. Plan was discussed with patient who understood and agrees. El paciente es estable para el maria del rosario por Dr. Benedict. El paciente debe continuar todos los medicamentos en el hogar. Tambin se destaca que debe cumplir con jane medicamentos contra el VIH. El paciente tambin debe comenzar los siguientes antibiticos segn lo prescrito: Bactrim DS 1 pestaa por la boca dos veces al da Augmentin 875/125 1 ficha por la boca dos veces al da Por favor, fredis un seguimiento con hernandes PMD, el Dr. Reyna cuando regrese. Por favor fredis un seguimiento con GI, Dr. Braga para colonoscopa ambulatoria. Por favor, fredis un seguimiento con el especialista en identificacin, el Dr. Alva, para el cuidado del VIH. El plan fue discutido con un paciente que entendi y estuvo de acuerdo. Referrals: Michelle Braga MD [Medical Doctor] - Lucy Reyna MD [Staff Provider] - <Enrique Benedict - Last Filed: 04/05/18 18:03> Provider - Provider Date of Admission: 03/29/18 12:03 Attending physician: Lucy Reyna MD Hospital Course - Lab Results Lab Results: Micro Results 04/02/18 20:42 Stool Ova and Parasite Concentrate Exam - Final 04/02/18 20:42 Stool Stool Culture - Final NO SALMONELLA, SHIGELLA OR CAMPYLOBACTER ISOLATED. 04/02/18 06:15 Other: Please Indicate Mycobacterial Culture - Preliminary 04/01/18 23:44 Other: Please Indicate Mycobacterial Culture - Preliminary 03/29/18 10:37 Blood Blood Culture - Final NO GROWTH AFTER 5 DAYS 03/29/18 10:37 Blood Gram Stain - Final TEST NOT PERFORMED 03/29/18 10:37 Blood Blood Culture - Final NO GROWTH AFTER 5 DAYS 03/29/18 10:37 Blood Gram Stain - Final TEST NOT PERFORMED 03/31/18 08:09 Sputum Gram Stain - Final 03/31/18 08:09 Sputum Sputum Culture - Final NORMAL ORAL DEANNA 03/31/18 07:50 Other: Please Indicate Mycobacterial Culture - Preliminary 03/30/18 06:58 Stool Stool Culture - Final NO SALMONELLA, SHIGELLA OR CAMPYLOBACTER ISOLATED. 03/29/18 14:29 Naris MRSA Culture (Admit) - Final MRSA NOT DETECTED 03/29/18 10:37 Throat Group A Strep Throat Culture - Final NO BETA STREP GROUP A ISOLATED. 03/29/18 11:54 Urine,Catheterized Urine Culture - Final No Growth (<1,000 CFU/ML) Most Recent Lab Values WBC 3.4 K/uL (4.8-10.8) L 04/05/18 07:57 RBC 3.90 Mil/uL (3.80-5.20) 04/05/18 07:57 Hgb 10.7 g/dL (11.0-16.0) L 04/05/18 07:57 Hct 31.7 % (34.0-47.0) L 04/05/18 07:57 MCV 81.2 fL (81.0-99.0) 04/05/18 07:57 MCH 27.4 pg (27.0-31.0) 04/05/18 07:57 MCHC 33.7 g/dL (33.0-37.0) 04/05/18 07:57 RDW 17.5 % (11.5-14.5) H 04/05/18 07:57 Plt Count 256 K/uL (130-400) 04/05/18 07:57 MPV 8.6 fL (7.2-11.7) 04/05/18 07:57 Neut % (Auto) 52.7 % (50.0-75.0) 04/05/18 07:57 Lymph % (Auto) 31.5 % (20.0-40.0) 04/05/18 07:57 [place] % (Auto) 7.4 % (0.0-10.0) 04/05/18 07:57 Eos % (Auto) 7.6 % (0.0-4.0) H 04/05/18 07:57 Baso % (Auto) 0.8 % (0.0-2.0) 04/05/18 07:57 Neut # (Auto) 1.8 K/uL (1.8-7.0) 04/05/18 07:57 Lymph # (Auto) 1.1 K/uL (1.0-4.3) 04/05/18 07:57 [place] # (Auto) 0.3 K/uL (0.0-0.8) 04/05/18 07:57 Eos # (Auto) 0.3 K/uL (0.0-0.7) 04/05/18 07:57 Baso # (Auto) 0.0 K/uL (0.0-0.2) 04/05/18 07:57 Differential Comment 03/29/18 10:37 ESR 55 mm/hr (0-20) H 03/29/18 14:29 G6PD RBC Count 20.0 U/g HGB (7.0-20.5) 03/30/18 08:23 PT 14.1 SECONDS (9.7-12.2) H 03/29/18 10:37 INR 1.3 03/29/18 10:37 APTT 34 SECONDS (21-34) 03/29/18 10:37 D-Dimer, Quantitative 494 ng/mlDDU (0-243) H 03/30/18 08:23 pO2 39 mm/Hg (30-55) 03/29/18 13:25 VBG pH 7.37 (7.32-7.43) 03/29/18 13:25 VBG pCO2 35 mmHg (40-60) L 03/29/18 13:25 VBG HCO3 20.8 mmol/L 03/29/18 13:25 VBG Total CO2 21.3 mmol/L (22-28) L 03/29/18 13:25 VBG O2 Sat (Calc) 77.9 % (40-65) H 03/29/18 13:25 VBG Base Excess -4.4 mmol/L (0.0-2.0) L 03/29/18 13:25 VBG Potassium 3.1 mmol/L (3.6-5.2) L 03/29/18 13:25 A-a O2 Difference 67.0 mm/Hg 03/29/18 13:25 Sodium 137.0 mmol/l (132-148) 03/29/18 13:25 Chloride 108.0 mmol/L (98-107) H 03/29/18 13:25 Glucose 128 mg/dl (65-105) H 03/29/18 13:25 Lactate 0.8 mmol/L (0.7-2.1) 03/29/18 13:25 FiO2 21.0 % 03/29/18 13:25 Crit Value Called To Er physician 03/29/18 13:25 Crit Value Called By Des 03/29/18 13:25 Crit Value Read Back Y 03/29/18 13:25 Blood Gas Notified Time 1330 03/29/18 13:25 Sodium 141 mmol/L (132-148) 04/05/18 07:57 Potassium 4.8 mmol/L (3.6-5.2) 04/05/18 07:57 Chloride 101 mmol/L (98-107) 04/05/18 07:57 Carbon Dioxide 25 mmol/L (22-30) 04/05/18 07:57 Anion Gap 19 (10-20) 04/05/18 07:57 BUN 11 mg/dL (7-17) 04/05/18 07:57 Creatinine 0.7 mg/dL (0.7-1.2) 04/05/18 07:57 Est GFR ( Amer) > 60 04/05/18 07:57 Est GFR (Non-Af Amer) > 60 04/05/18 07:57 Random Glucose 92 mg/dL (65-105) 04/05/18 07:57 Calcium 9.9 mg/dl (8.6-10.4) 04/05/18 07:57 Magnesium 2.1 mg/dL (1.6-2.3) 03/31/18 08:11 Total Bilirubin 0.3 mg/dL (0.2-1.3) 04/05/18 07:57 AST 22 U/L (14-36) 04/05/18 07:57 ALT 26 U/L (9-52) 04/05/18 07:57 Alkaline Phosphatase 123 U/L (38-126) 04/05/18 07:57 Lactate Dehydrogenase 384 U/L (313-618) 03/29/18 11:48 Troponin I < 0.0120 ng/mL (0.00-0.120) 03/29/18 10:37 C-Reactive Protein 151.30 mg/L (0.0-9.9) H 03/30/18 08:23 Total Protein 7.8 g/dL (6.3-8.3) 04/05/18 07:57 Albumin 4.3 g/dL (3.5-5.0) 04/05/18 07:57 Globulin 3.5 gm/dL (2.2-3.9) 04/05/18 07:57 Albumin/Globulin Ratio 1.2 (1.0-2.1) 04/05/18 07:57 Procalcitonin 0.89 NG/ML (0.19-0.49) H 03/30/18 08:23 Venous Blood Potassium 3.1 mmol/L (3.6-5.2) L 03/29/18 13:25 Urine Color Yellow (YELLOW) 03/29/18 11:54 Urine Clarity Clear (Clear) 03/29/18 11:54 Urine pH 5.0 (5.0-8.0) 03/29/18 11:54 Ur Specific [place] 1.019 (1.003-1.030) 03/29/18 11:54 Urine Protein Negative mg/dL (NEGATIVE) 03/29/18 11:54 Urine Glucose (UA) Normal mg/dL (Normal) 03/29/18 11:54 Urine Ketones Negative mg/dL (NEGATIVE) 03/29/18 11:54 Urine Blood Negative (NEGATIVE) 03/29/18 11:54 Urine Nitrate Negative (NEGATIVE) 03/29/18 11:54 Urine Bilirubin Negative (NEGATIVE) 03/29/18 11:54 Urine Urobilinogen Normal mg/dL (0.2-1.0) 03/29/18 11:54 Ur Leukocyte Esterase Neg Pete/uL (Negative) 03/29/18 11:54 Urine WBC (Auto) 1 /hpf (0-5) 03/29/18 11:54 Urine RBC (Auto) 1 /hpf (0-3) 03/29/18 11:54 Urine HCG, Qual Negative (NEGATIVE) 03/30/18 01:21 Stool Occult Blood Positive (NEGATIVE) H 03/31/18 21:32 Stool Leukocytes, Qual Negative (NEGATIVE) 03/29/18 22:41 Urine Opiates Screen Negative (NEGATIVE) 03/29/18 11:54 Urine Methadone Screen Negative (NEGATIVE) 03/29/18 11:54 Ur Barbiturates Screen Negative (NEGATIVE) 03/29/18 11:54 Ur Phencyclidine Scrn Negative (NEGATIVE) 03/29/18 11:54 Ur Amphetamines Screen Negative (NEGATIVE) 03/29/18 11:54 U Benzodiazepines Scrn Negative (NEGATIVE) 03/29/18 11:54 U Oth Cocaine Metabols Negative (NEGATIVE) 03/29/18 11:54 U Cannabinoids Screen Negative (NEGATIVE) 03/29/18 11:54 Absolute Lymphs (Flow) 1029 Cells/mcL (850-3900) 03/29/18 14:29 % CD4 Cells 8 Percent (30-61) L 03/29/18 14:29 Absolute CD4 Count 87 Cells/mcL (490-1740) L 03/29/18 14:29 T-Help/Suppress Ratio 0.14 Ratio (0.86-5.00) L 03/29/18 14:29 % CD8 Cells 62 Percent (12-42) H 03/29/18 14:29 Absolute CD8 Count 637 Cells/mcL (180-1170) 03/29/18 14:29 C. difficile Ag & Toxin Negative (NEGATIVE) 03/30/18 06:33 Cryptococcus Ag Negative (NEGATIVE) 03/31/18 08:11 HIV-1 RNA Qnt (RT-PCR) 4.96 (Not Detected) H 03/30/18 08:23 Ur L.pneumophila Ag Negative (NEGATIVE) 03/29/18 14:29 Mycoplasma pneumon IgM Negative (NEGATIVE) 03/29/18 14:29 Grp A Beta Strep Ag Negative (NEGATIVE) 03/29/18 10:37 TB Test (QFT) Nil 0.07 IU/mL 03/31/18 08:11 TB Test Mitogen - Nil 2.17 IU/mL 03/31/18 08:11 TB Test TB - Nil <0.00 IU/mL 03/31/18 08:11 TB Test (QFT) Negative (Negative) 03/31/18 08:11 Attending/Attestation - Attestation I have personally seen and examined this patient.: Yes I have fully participated in the care of the patient.: Yes I have reviewed all pertinent clinical information, including history, physical exam and plan: Yes Notes (Text): 04/05/18 18:03 Medical attending: Patient was seen and examined by me, I saw the patient together with the medical historian. Reviewed the above note and agree with the above. The patient was able to walk around in the hallway actively. She reported that she felt well and she was no longer having the abdominal pain and diarrhea that initially brought her into the hospital. She denied having bloody stools. She has been seen by GI, they explained that she should have further endoscopy studies done outpatient not in patient. There was also concern that because of her low CD4 counts that she could have PCP pneumonia. At this time her pulse oxs have been stable, she does not have an elevated LDH. She has been on the IV Bactrim. She denies coughing she denies shortness of breath she also denies fevers at this time Socially was insisting on going home today, and our concern is her compliance with her medication for HIV which are the to the Tiemil and [place]. We explained to her that it is extremely important (in Dutch) that she be compliant with her medication. She says she understands also we emphasized to her in Dutch that she should follow-up with GI as well as her infectious disease doctor outpatient and also her primary care physician. Also working at discharge her with additional days of by mouth Bactrim, as well as additional days of by mouth Augmentin as well. She's can have to continue with her HARRT imedications. She says she has enough of her HARRT medications at home does not need refills thank you very much, Enrique Benedict
== END 2018-04-05 15:33 | disposition home or self-care (01) | DRG 714 ==
LOC: C.ER 09:45 → C.9E 12:03 → C.5S 14:55
PROVIDERS: ADMIT Internal Medicine; ATTEND Internal Medicine
DX: J18.9 Pneumonia, unspecified organism (principal); B20 Human immunodeficiency virus [HIV] disease; R64 Cachexia; K92.2 Gastrointestinal hemorrhage, unspecified; K52.9 Noninfective gastroenteritis and colitis, unspecified; Z91.14 Patient's other noncompliance with medication regimen; F32.9 Major depressive disorder, single episode, unspecified; T39.395A Adverse effect of other nonsteroidal anti-inflammatory drugs [NSAID], initial encounter

== ENCOUNTER 2018-05-26 09:24 | Day surgery (SDC) | payer MEDICAID ==
--- NOTE | 2018-05-26 11:26 | CP.SDSHP ---
Same Day Surgery H & P - History Proposed Procedure: colonoscopy Pre-Op Diagnosis: screening - Previous Medical/Surgical History Comments: HIV - Allergies Allergies: Allergies orange Allergy (Verified 05/26/18 10:01) RASH risperidone [From Risperdal] Allergy (Verified 05/26/18 10:01) RASH tomato Allergy (Verified 05/26/18 10:01) RASH - Physical Exam General Appearance: NAD Vital Signs: Vital Signs 05/26/18 10:04 Temperature 98.6 F Pulse Rate 80 Respiratory 20 Rate Blood Pressure 101/67 O2 Sat by Pulse 99 Oximetry Mental Status: Alert & Oriented x3 Neuro: WNL Heart: WNL Lungs: WNL GI: WNL - {Optional Preform as Required} Abdomen: WNL - Impression Pt. Evaluated Today:Candidate for Anesthesia & Procedure: Yes - Date & Time Date: 05/26/18 Time: 11:26 Short Stay Discharge - Short Stay Discharge Admitting Diagnosis/Reason for Visit: SCREENING Disposition: HOME/ ROUTINE
[2018-05-26 12:23] VITALS: TEMP 97
[2018-05-26 12:50] VITALS: RESP 15; O2SAT 100
[2018-05-26 12:52] VITALS: BP 118/72; PULSE 78
== END 2018-05-26 12:50 | disposition home or self-care (01) ==
LOC: C.ENDO 09:24
PROVIDERS: ATTEND Internal Medicine Gastroenterology
DX: Z12.11 Encounter for screening for malignant neoplasm of colon (principal); Z53.8 Procedure and treatment not carried out for other reasons; K64.8 Other hemorrhoids

== ENCOUNTER 2018-06-15 10:29 | Emergency (ER) | payer MEDICAID ==
[2018-06-15 10:30] VITALS: BMI 23.4
[2018-06-15 10:41] VITALS: BP 114/79; PULSE 96; RESP 20; TEMP 98.3; O2SAT 97
--- NOTE | 2018-06-15 11:23 | C.PDOC ---
History Of Present Illness 52 year old female presents to the ED for evaluation of a "muffled" sensation in her left ear for 4 days. Patient reports hearing an "echo." Patient denies fever, chills, left ear pain or discharge, headache, dizziness, or any symptoms in her right ear. Time Seen by Provider: 06/15/18 11:09 Chief Complaint (Nursing): ENT Problem History Per: Patient History/Exam Limitations: None Onset/Duration Of Symptoms: Days (4), Waxing/Waning Quality (Ear): denies: Pain W/Touch, Discharge Past Medical History Reviewed: Historical Data, Nursing Documentation, Vital Signs Vital Signs: Last Vital Signs Temp 98.3 F 06/15/18 10:37 Pulse 96 H 06/15/18 10:37 Resp 20 06/15/18 10:37 BP 114/79 06/15/18 10:37 Pulse Ox 97 06/15/18 10:37 - Medical History PMH: Arthritis, Bronchitis, Depression, Diverticulitis, Gall Bladder Disease, HIV, Pneumonia Denies: Anemia, Anxiety, Asthma, Atrial Fibrillation, Bipolar Disorder, Cardia Arrhythmia, CHF, COPD, Crohn's Disease, Emphysema, Fractures, Gastritis, HTN, Hypercholesterolemia, Mitral Valve Prolapse, Osteoporosis, Pancreatitis, Paranoia, Peripheral Edema, Post Traumatic Stress Disorder, Pulmonary Embolism, Chronic Kidney Disease, Rheumatoid Arthritis, Schizophrenia, Sickle Cell Dise ase, Sleep Apnea Surgical History: Cholecystectomy, Endoscopy Denies: Appendectomy, CABG, Carotid Endarterectomy, Coronary Stent, Pacemaker, Tonsillectomy - [facility] Procedures INSERTION OF INFUSION DEV INTO SUP VENA CAVA, PERC APPROACH (03/29/18) Family History: States: Hypertension - Social History Hx Alcohol Use: No Hx Substance Use: No - Immunization History Hx Tetanus Toxoid Vaccination: No Hx Influenza Vaccination: Yes (05/2017) Hx Pneumococcal Vaccination: Yes (05/2017) Review Of Systems Constitutional: Negative for: Fever, Chills ENT: Positive for: Other (muffled sensation in left ear). Negative for: Ear Pain, Ear Discharge Neurological: Negative for: Headache, Dizziness Physical Exam - Physical Exam Appears: Non-toxic, No Acute Distress Skin: Normal Color, Warm, Dry Head: Atraumatic, Normacephalic, No Tenderness (tragus or mastoid tenderness ) Eye(s): bilateral: Normal Inspection Ear(s): Left: TM Obscured By Wax (excessive ), Other (unable to visualize TM ), Right: Normal Oral Mucosa: Moist Neck: Normal ROM, Supple Extremity: Normal ROM Neurological/Psych: Oriented x3, Normal Speech, Normal Cognition Gait: Steady ED Course And Treatment O2 Sat by Pulse Oximetry: 97 (on RA) Pulse Ox Interpretation: Normal Medical Decision Making Medical Decision Making: Progress: Left ear irrigated with luke warm water. Partial cerumen removal successful with curette. unable to visualize TM post-procedure. Patient tolerated well with no complications. On reassessment, patient is resting comfortably, showing no signs of distress and reports an improvement in her symptoms. Patient is stable for discharge and is advised to follow up with PMD within 2-3 days for further evaluation. Disposition Counseled Patient/Family Regarding: Diagnosis, Need For Followup - Disposition Referrals: Lucy Reyna MD [Staff Provider] - Disposition: HOME/ ROUTINE Disposition Time: 11:20 Condition: GOOD Additional Instructions: Aplicar gotsandra en la [place] 2-3 veces al da. 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 - Scribe Statement The provider has reviewed the documentation as recorded by the Scribe (Eve Isbell) All medical record entries made by the Scribe were at my direction and personally dictated by me. I have reviewed the chart and agree that the record accurately reflects my personal performance of the history, physical exam, medical decision making, and the department course for this patient. I have also personally directed, reviewed, and agree with the discharge instructions and di sposition. Procedures - Ear Wax Removal Left Ear Result: Re-examined: some cerumen remains TM Examination: other (unable to visualize TM ) Patient Tolerated Procedure: well, other (unable to visualize TM after partial removal ) Technique: ear canal curetted
== END 2018-06-15 11:36 | disposition home or self-care (01) ==
LOC: C.ER 10:29
DX: H61.22 Impacted cerumen, left ear (principal)

== ENCOUNTER 2018-10-01 08:49 | Emergency (ER) | payer MEDICAID ==
[2018-10-01 08:50] VITALS: BMI 23.4
[2018-10-01] MEDS ORDERED: Sodium Chloride 0.9% 500 ML IV ONE (09:25)
[2018-10-01] MEDS ORDERED: Acetaminophen/Codeine elixir 120-12mg/5ml PO STA (09:28)
[2018-10-01] MEDS ORDERED: Acetaminophen 650mg/20.3ml solution UD ONE (09:47)
[2018-10-01 09:50] LABS: BASO % 0.4 % (0.0-2.0); EOS % 0.1 % (0.0-4.0); HEMOGLOBIN 11.6 g/dL (11.0-16.0); LYMPH # 0.9 K/uL (1.0-4.3); LYMPH % 13.2 % (20.0-40.0); MEAN CORPUSCULAR HEMOGLOBIN 27.6 pg (27.0-31.0); MEAN CORPUSCULAR HGB CONC 32.9 g/dL (33.0-37.0); MEAN PLATELET VOLUME 9.6 fL (7.2-11.7); MONO # 0.2 K/uL (0.0-0.8); MONO % 3.4 % (0.0-10.0); NEUT # 5.7 K/uL (1.8-7.0); NEUT % 82.9 % (50.0-75.0); RBC 4.18 Mil/uL (3.80-5.20); RED CELL DISTRIBUTION WIDTH 16.5 % (11.5-14.5)
[2018-10-01 09:55] LABS: WHITE BLOOD COUNT 6.9 K/uL (4.8-10.8)
[2018-10-01 09:59] LABS: ALB/GLOB RATIO 1.3 (1.0-2.1); ALBUMIN 4.4 g/dL (3.5-5.0); ALT/SGPT 81 U/L (9-52); AST/SGOT 66 U/L (14-36); BLOOD UREA NITROGEN 18 mg/dL (7-17); CALCIUM 8.6 mg/dl (8.6-10.4); GFR NON-AFRICAN AMERICAN > 60
[2018-10-01 10:36] LABS: VENOUS BLOOD GAS BASE EXCESS -8.3 mmol/L (0.0-2.0); VENOUS BLOOD GAS PCO2 19 mmHg (40-60); VENOUS BLOOD GAS PO2 68 mm/Hg (30-55); VENOUS BLOOD PH 7.45 (7.32-7.43)
--- NOTE | 2018-10-01 10:36 | C.PDOC ---
History Of Present Illness 53 y/o female with a PMHx of HIV presents to the ED complaining of a 2 day history of weakness, cough, sore throat, runny nose, and fever. Patient states she thinks Tmax was 104 at home. Temp taken is 101 on arrival. Additionally carter hopkins is complaining of back pain. Did not receive flu shot this year. Time Seen by Provider: 10/01/18 09:23 Chief Complaint (Nursing): Flu-like Symptoms History Per: Patient History/Exam Limitations: no limitations Onset/Duration Of Symptoms: Days Current Symptoms Are (Timing): Still Present Location Of Pain: Throat Associated Symptoms: Fever, Sore Throat, Cough, Nasal Congestion Past Medical History Reviewed: Historical Data, Nursing Documentation, Vital Signs Vital Signs: Last Vital Signs Temp 101.1 F H 10/01/18 08:58 Pulse 123 H 10/01/18 08:58 Resp 97 H 10/01/18 08:58 BP 99/66 L 10/01/18 08:58 Pulse Ox 97 10/01/18 08:58 - Medical History PMH: Arthritis, Bronchitis, Depression, Diverticulitis, Gall Bladder Disease, HIV, Pneumonia Denies: Anemia, Anxiety, Asthma, Atrial Fibrillation, Bipolar Disorder, Cardia Arrhythmia, CHF, COPD, Crohn's Disease, Emphysema, Fractures, Gastritis, HTN, Hypercholesterolemia, Mitral Valve Prolapse, Osteoporosis, Pancreatitis, Paranoia, Peripheral Edema, Post Traumatic Stress Disorder, Pulmonary Embolism, Chronic Kidney Disease, Rheumatoid Arthritis, Schizophrenia, Sickle Cell Disease, Sleep Apnea Surgical History: Cholecystectomy, Endoscopy Denies: Appendectomy, CABG, Carotid Endarterectomy, Coronary Stent, Pacemaker, Tonsillectomy - [facility] Procedures INSERTION OF INFUSION DEV INTO SUP VENA CAVA, PERC APPROACH (03/29/18) Family History: States: Hypertension - Social History Hx Alcohol Use: No Hx Substance Use: No - Immunization History Hx Tetanus Toxoid Vaccination: No Hx Influenza Vaccination: No (05/2017) Hx Pneumococcal Vaccination: Yes (05/2017) Review Of Systems Except As Marked, All Systems Reviewed And Found Negative. Constitutional: Positive for: Fever, Weakness Eyes: Negative for: Vision Change ENT: Positive for: Nose Discharge, Nose Congestion, Throat Pain Cardiovascular: Negative for: Chest Pain Respiratory: Positive for: Cough. Negative for: Shortness of Breath Gastrointestinal: Negative for: Vomiting, Abdominal Pain, Diarrhea Musculoskeletal: Positive for: Back Pain Neurological: Negative for: Headache, Dizziness Physical Exam - Physical Exam Appears: Non-toxic, Other (Ill appearing) Skin: Warm, Dry, No Rash Head: Atraumatic, Normacephalic Eye(s): bilateral: Normal Inspection, PERRL, EOMI Oral Mucosa: Moist Throat: Erythema (mild pharyngeal erythema), No Exudate Neck: Normal ROM, Supple Chest: Symmetrical Cardiovascular: Rhythm Regular, No Murmur Respiratory: Normal Breath Sounds, No Rales, No Rhonchi, No Wheezing Gastrointestinal/Abdominal: Bowel Sounds, Soft, No Tenderness Extremity: Bilateral: Atraumatic, Normal Color And Temperature, Normal ROM Neurological/Psych: Other (awake, alert, cooperative) ED Course And Treatment - Laboratory Results Result Diagrams: 10/01/18 09:41 10/01/18 09:41 Lab Results: Total Bilirubin 0.9 mg/dL (0.2-1.3) 10/01/18 09:41 AST 66 U/L (14-36) H D 10/01/18 09:41 ALT 81 U/L (9-52) H D 10/01/18 09:41 Alkaline Phosphatase 270 U/L (38-126) H D 10/01/18 09:41 Total Protein 7.6 g/dL (6.3-8.3) 10/01/18 09:41 Albumin 4.4 g/dL (3.5-5.0) 10/01/18 09:41 Globulin 3.3 gm/dL (2.2-3.9) 10/01/18 09:41 Albumin/Globulin Ratio 1.3 (1.0-2.1) 10/01/18 09:41 O2 Sat by Pulse Oximetry: 97 (RA) Pulse Ox Interpretation: Normal - Radiology CXR: Interpreted by Me, Viewed By Me CXR Interpretation: Yes: No Acute Disease. No: Infiltrates Medical Decision Making Medical Decision Making: Impression: Flu-like symptoms, r/o sepsis vs flu Plan: --CBC, CMP --VBG --EKG --CXR --flu swab --blood culture --Motrin PO --Tylenol PO --Tamiflu PO --IV fluids CXR shows no acute disease. Labs reviewed. 11:35 On re-evaluation patient reports symptoms have improved. Lungs are clear bilaterally. Patient wants to go home. 11:[address] Reyna, reviewed findings, patient is to follow up in the office this week. Patient is stable for discharge home. Given prescriptions, will treat for flu. Disposition Discussed With Dr.: Lucy Reyna Counseled Patient/Family Regarding: Studies Performed, Diagnosis, Need For Followup, Rx Given - Disposition Disposition: HOME/ ROUTINE Disposition Time: 12:12 Condition: GUARDED Prescriptions: Azithromycin 1 tab PO DAILY #6 tab Ibuprofen [Motrin] 600 mg PO TID #15 tab Oseltamivir Cap [Tamiflu] 1 cap PO BID #10 cap Forms: Gen Discharge Inst Moz[place]ican, [facility] (Mozambican) - POA Present On Arrival: None - Clinical Impression Clinical Impression: Influenza-like illness, Fever - Scribe Statement The provider has reviewed the documentation as recorded by the Rober Lee Provider Attestation: All medical record entries made by the Naziaibjosephine were at my direction and personally dictated by me. I have reviewed the chart and agree that the record accurately reflects my personal performance of the history, physical exam, medical decision making, and the department course for this patient. I have also personally directed, reviewed, and agree with the discharge instructions and disposition.
--- NOTE | 2018-10-01 10:48 | RAD ---
Date of service: 10/01/2018 HISTORY: SOB COMPARISON: CT angio chest 03/30/2018. TECHNIQUE: Chest PA and lateral FINDINGS: LUNGS: No active pulmonary disease. Prior pneumonia at left upper lobe not identified currently. PLEURA: No significant pleural effusion identified. No pneumothorax apparent. CARDIOVASCULAR: No aortic atherosclerotic calcification present. Normal cardiac size. No pulmonary vascular congestion. OSSEOUS STRUCTURES: No significant abnormalities. VISUALIZED UPPER ABDOMEN: Normal. OTHER FINDINGS: None. IMPRESSION: No interval acute cardiopulmonary disease appreciable.
[2018-10-01 11:41] VITALS: BP 88/45; PULSE 86; RESP 18; TEMP 98.5
[2018-10-01 11:45] VITALS: O2SAT 97
== END 2018-10-01 12:20 | disposition home or self-care (01) ==
LOC: C.ER 08:49
DX: J11.1 Influenza due to unidentified influenza virus with other respiratory manifestations (principal); R50.9 Fever, unspecified
CPT/HCPCS: 71046; 80053; 82803; 85025; 87040; 87804; 96360; 99283; J7040